=== PATIENT | male | born 1940 | race Hispanic/Latino ===

== ENCOUNTER 2018-02-14 13:19 | Inpatient (IN) | payer MEDICARE ==
[2018-02-13 14:50] LABS: BASOPHILS % 0.5 % (0.0-1.0); EOSINOPHILS # (AUTO) 0.2 (0.0-0.4); EOSINOPHILS % 3.2 % (0.0-6.0); HEMATOCRIT 34.2 % (38.2-49.6); HEMOGLOBIN 11.6 g/dL (14.0-18.0); LYMPHOCYTES # (AUTO) 1.3 (1.0-3.2); LYMPHOCYTES % 17.9 % (18.0-39.1); MEAN CORPUSCULAR HEMOGLOBIN 32.9 pg (28-32); MEAN CORPUSCULAR HGB CONC 33.9 g/dL (31-35); MEAN CORPUSCULAR VOLUME 96.9 fL (81-99); MONOCYTES # (AUTO) 0.7 (0.2-0.8); NEUTROPHILS # (AUTO) 5.1 (2.1-6.9); NEUTROPHILS % 68.7 % (38.7-80.0); PLATELET COUNT 194 x10e3/uL (140-360); RED BLOOD COUNT 3.53 x10e6/uL (4.3-5.7); RED CELL DISTRIBUTION WIDTH 13.5 % (11.7-14.4)
[2018-02-13 15:00] LABS: INR 1.21; PROTHROMBIN TIME 14.4 seconds (11.9-14.5)
[2018-02-13 15:01] LABS: PARTIAL THROMBOPLASTIN TIME 31.3 seconds (23.8-35.5)
--- NOTE | 2018-02-13 15:06 | Diagnostic Imaging Report ---
PROCEDURE: Frontal and lateral views of the chest. COMPARISON: None. INDICATIONS: PREOPERATIVE CHEST XRAY FOR PROSTATE SURGERY FINDINGS: Lines/tubes: None. Lungs: The lungs are well inflated and clear. There is no evidence of pneumonia or pulmonary edema. Pleura: There is no pleural effusion or pneumothorax. Heart and mediastinum: Mild aortic calcifications. The heart and the mediastinum are normal. Bones: No acute bony abnormality. IMPRESSION: No acute cardiopulmonary disease. Dictated by: Pineda Epps M.D. on 02/13/2018 at 15:11 Electronically approved by: Pineda Epps M.D. on 02/13/2018 at 15:11
[2018-02-13 15:11] LABS: ALANINE AMINOTRANSFERASE 13 IU/L (0-55); ALBUMIN 3.4 g/dL (3.5-5.0); ALBUMIN/GLOBULIN RATIO 0.9 (0.8-2.0); ALKALINE PHOSPHATASE 71 IU/L (40-150); ANION GAP 9.8 mmol/L (8-16); CALCIUM 8.8 mg/dL (8.4-10.2); CARBON DIOXIDE 26 mmol/L (22-29); CHLORIDE 104 mmol/L (98-107); CREATININE, SERUM 1.03 mg/dL (0.72-1.25); EST GLOMERULAR FILTRATION RATE > 60 ML/MIN (60-); GLUCOSE 110 mg/dL (74-118); POTASSIUM 3.8 mmol/L (3.5-5.1); SODIUM 136 mmol/L (136-145)
[2018-02-13 15:28] LABS: BLOOD UREA NITROGEN 24 mg/dL (7-26); BUN/CREATININE RATIO 23 (6-25)
[~2018-02-14] VITALS: Ht 175.3 cm; Wt 99.8 kg
[2018-02-14] MEDS: CEFTRIAXONE SOD 1 GM VIAL IV SCH (09:00)
[2018-02-14 13:03] LABS: BASOPHILS % 0.3 % (0.0-1.0); EOSINOPHILS # (AUTO) 0.1 (0.0-0.4); EOSINOPHILS % 1.5 % (0.0-6.0); HEMATOCRIT 33.5 % (38.2-49.6); HEMOGLOBIN 11.3 g/dL (14.0-18.0); LYMPHOCYTES # (AUTO) 0.7 (1.0-3.2); LYMPHOCYTES % 7.9 % (18.0-39.1); MEAN CORPUSCULAR HEMOGLOBIN 32.9 pg (28-32); MEAN CORPUSCULAR HGB CONC 33.7 g/dL (31-35); MEAN CORPUSCULAR VOLUME 97.7 fL (81-99); MONOCYTES # (AUTO) 0.2 (0.2-0.8); MONOCYTES % 2.5 % (4.4-11.3); NEUTROPHILS # (AUTO) 8.2 (2.1-6.9); NEUTROPHILS % 87.3 % (38.7-80.0); PLATELET COUNT 214 x10e3/uL (140-360); RED BLOOD COUNT 3.43 x10e6/uL (4.3-5.7); RED CELL DISTRIBUTION WIDTH 13.5 % (11.7-14.4)
[~2018-02-14 13:19] MED LIST: AMIODARONE HCL200 MG PO; AMLODIPINE BESY10 MG PO; AMOXICILLIN250 MG PO; ASPIRIN325 MG PO; BACTRIM DS1 EA; CEFTRIAXONE SOD 1 GM VIAL ONE; DIPHENHYDRAMINE HCL INJ 50 MG/ML VIAL IM PRN; DIPHENHYDRAMINE HCL INJ 50 MG/ML VIAL ONE; DITROPAN 5MG TAB5 MG PO; FENTANYL CITRATE/PF 100MCG/2 ML INJ ONE; FINASTERIDE5 MG PO; GENTAMICIN 80MG/NS 100 ML 200 ML IV ONE; HYDROCHLOROTH12.5 M1 PO; IOPAMIDOL 300MG/ML 50ML INFUS..BTL IV ONE; LISINOPRIL10 MG PO; LOSARTAN POTAS100 MG PO; LOSARTAN POTASS25 MG PO; METHYLENE BLUE 1% INJ 10 ML VIAL INJ ONE; METOPROLOL TAR100 MG PO; MORPHINE SULFATE 1 MG/ML 30ML PCA IV PRN; MORPHINE SULFATE 2 MG/ML SYR ONE; NALOXONE HCL INJ 0.4 MG/ML AMP IV PRN; NEXIUM40 MG PO; ONDANSETRON HCL INJ 2 MG/ML VIAL IV PRN; TAMSULOSIN HCL0.4 MG PO; TRAZODONE HCL50 MG PO; WARFARIN SODIUM1 MG; XARELTO20 MG PO; Z.0.IMDUR30 MG; Z.0.NORVASC10 MG; Z.0.VASOTEC10 MG PO
[2018-02-14 13:55] VITALS: BP 148/80
[2018-02-14 14:18] VITALS: BP 148/80
[2018-02-14] MEDS: D5.45%NS/KCL 20MEQ 1,000 ML IV SCH ×2 (14:22→21:09)
[2018-02-14] MEDS ORDERED: FENTANYL CITRATE/PF 100MCG/2 ML INJ ONE (14:44)
[2018-02-14] MEDS ORDERED: MIDAZOLAM HCL 2 MG/2 ML VIAL ONE (14:44)
[2018-02-14] MEDS: PHENAZOPYRIDINE HCL 100 MG TAB PO SCH (16:16)
[2018-02-14] MEDS: DOCUSATE SODIUM 100 MG CAP PO SCH (16:16)
[2018-02-14] MEDS ORDERED: DEXAMETHASONE SOD PHOS INJ 4 MG/ML VIAL ONE (16:49)
[2018-02-14] MEDS ORDERED: PROPOFOL IV EMULSION 10 MG/ML 20 ML VIAL ONE (16:49)
[2018-02-14] MEDS ORDERED: SEVOFLURANE INHAL SOLN 250 ML PEN BTL ONE (16:49)
[2018-02-14] MEDS ORDERED: LIDOCAINE HCL 2% LOCAL INJ 5 ML SDV VIAL INJ ONE (16:49)
[2018-02-14] MEDS ORDERED: ONDANSETRON HCL INJ 2 MG/ML VIAL ONE (16:49)
[2018-02-14 20:00] VITALS: BP 116/63
[2018-02-14 20:45] VITALS: BP 116/63
[2018-02-15] VITALS: BP 156/88
[2018-02-15] MEDS: ACETAMINOPHEN/CODEINE 300MG - 30MG TAB PO PRN ×2 (00:47→20:47)
[2018-02-15 04:00] VITALS: BP 146/73
[2018-02-15] MEDS: D5.45%NS/KCL 20MEQ 1,000 ML IV SCH ×2 (05:09→14:44)
[2018-02-15 05:55] LABS: BASOPHILS % 0.2 % (0.0-1.0); EOSINOPHILS % 0.3 % (0.0-6.0); HEMATOCRIT 28.8 % (38.2-49.6); HEMOGLOBIN 9.4 g/dL (14.0-18.0); LYMPHOCYTES # (AUTO) 0.9 (1.0-3.2); LYMPHOCYTES % 8.8 % (18.0-39.1); MEAN CORPUSCULAR HEMOGLOBIN 32.5 pg (28-32); MEAN CORPUSCULAR HGB CONC 32.6 g/dL (31-35); MEAN CORPUSCULAR VOLUME 99.7 fL (81-99); MONOCYTES # (AUTO) 0.9 (0.2-0.8); MONOCYTES % 8.5 % (4.4-11.3); NEUTROPHILS # (AUTO) 8.7 (2.1-6.9); NEUTROPHILS % 81.7 % (38.7-80.0); PLATELET COUNT 189 x10e3/uL (140-360); RED BLOOD COUNT 2.89 x10e6/uL (4.3-5.7); RED CELL DISTRIBUTION WIDTH 13.4 % (11.7-14.4)
[2018-02-15 06:20] LABS: ANION GAP 11.1 mmol/L (8-16); BLOOD UREA NITROGEN 13 mg/dL (7-26); BUN/CREATININE RATIO 16 (6-25); CALCIUM 7.9 mg/dL (8.4-10.2); CARBON DIOXIDE 24 mmol/L (22-29); CHLORIDE 106 mmol/L (98-107); EST GLOMERULAR FILTRATION RATE > 60 ML/MIN (60-); GLUCOSE 139 mg/dL (74-118); POTASSIUM 4.1 mmol/L (3.5-5.1); SODIUM 137 mmol/L (136-145)
[2018-02-15] MEDS: LOSARTAN POTASSIUM 100 MG TAB PO SCH (07:58)
[2018-02-15] MEDS: PANTOPRAZOLE SOD 40 MG TABEC PO SCH (07:58)
[2018-02-15] MEDS: AMLODIPINE BESYLATE 10 MG TAB PO SCH (07:58)
[2018-02-15] MEDS: FINASTERIDE 5 MG TAB PO SCH (07:58)
[2018-02-15] MEDS: DOCUSATE SODIUM 100 MG CAP PO SCH ×2 (07:59→18:25)
[2018-02-15] MEDS: PHENAZOPYRIDINE HCL 100 MG TAB PO SCH ×3 (07:59→18:25)
[2018-02-15] MEDS: AMIODARONE HCL 200 MG TAB PO SCH (07:59)
[2018-02-15] MEDS: CEFTRIAXONE SOD 1 GM VIAL IV SCH (07:59)
[2018-02-15] MEDS: LISINOPRIL 10 MG TAB PO SCH (07:59)
[2018-02-15 09:05] VITALS: BP 169/79
[2018-02-15 10:35] VITALS: BP 169/79
[2018-02-15 16:51] VITALS: BP 134/71
[2018-02-15] MEDS: CALCIUM CARBONATE 500 MG CHEWABLE TABS PO SCH (18:25)
[2018-02-15 20:00] VITALS: BP 127/75
[2018-02-16] VITALS (8 sets, daily range): BP systolic 129–171; BP diastolic 68–77
[2018-02-16] MEDS: ACETAMINOPHEN/CODEINE 300MG - 30MG TAB PO PRN ×4 (00:47→20:32)
[2018-02-16] MEDS: D5.45%NS/KCL 20MEQ 1,000 ML IV SCH ×3 (01:41→16:08)
[2018-02-16] MEDS: DIPHENHYDRAMINE HCL 25 MG CAP PO PRN (03:30)
[2018-02-16 04:48] LABS: BASOPHILS % 0.2 % (0.0-1.0); EOSINOPHILS # (AUTO) 0.1 (0.0-0.4); EOSINOPHILS % 1.5 % (0.0-6.0); LYMPHOCYTES # (AUTO) 1.2 (1.0-3.2); LYMPHOCYTES % 12.5 % (18.0-39.1); MEAN CORPUSCULAR HEMOGLOBIN 32.7 pg (28-32); MEAN CORPUSCULAR HGB CONC 33.3 g/dL (31-35); MEAN CORPUSCULAR VOLUME 98.2 fL (81-99); MONOCYTES % 10.6 % (4.4-11.3); NEUTROPHILS # (AUTO) 6.9 (2.1-6.9); NEUTROPHILS % 74.8 % (38.7-80.0); PLATELET COUNT 158 x10e3/uL (140-360); RED BLOOD COUNT 2.75 x10e6/uL (4.3-5.7); RED CELL DISTRIBUTION WIDTH 13.6 % (11.7-14.4)
[2018-02-16 05:06] LABS: ANION GAP 10.3 mmol/L (8-16); BLOOD UREA NITROGEN 9 mg/dL (7-26); BUN/CREATININE RATIO 12 (6-25); CALCIUM 8.2 mg/dL (8.4-10.2); CARBON DIOXIDE 27 mmol/L (22-29); CHLORIDE 106 mmol/L (98-107); CREATININE, SERUM 0.76 mg/dL (0.72-1.25); EST GLOMERULAR FILTRATION RATE > 60 ML/MIN (60-); GLUCOSE 121 mg/dL (74-118); POTASSIUM 4.3 mmol/L (3.5-5.1); SODIUM 139 mmol/L (136-145)
[2018-02-16] MEDS: PHENAZOPYRIDINE HCL 100 MG TAB PO SCH ×2 (08:27→12:25)
[2018-02-16] MEDS: AMLODIPINE BESYLATE 10 MG TAB PO SCH (08:27)
[2018-02-16] MEDS: DOCUSATE SODIUM 100 MG CAP PO SCH ×2 (08:27→16:56)
[2018-02-16] MEDS: LISINOPRIL 10 MG TAB PO SCH (08:27)
[2018-02-16] MEDS: FINASTERIDE 5 MG TAB PO SCH (08:27)
[2018-02-16] MEDS: PANTOPRAZOLE SOD 40 MG TABEC PO SCH (08:27)
[2018-02-16] MEDS: CEFTRIAXONE SOD 1 GM VIAL IV SCH (08:27)
[2018-02-16] MEDS: AMIODARONE HCL 200 MG TAB PO SCH (08:27)
[2018-02-16] MEDS: CALCIUM CARBONATE 500 MG CHEWABLE TABS PO SCH ×2 (08:28→16:56)
[2018-02-16] MEDS: LOSARTAN POTASSIUM 100 MG TAB PO SCH (08:28)
[2018-02-17] VITALS (8 sets, daily range): BP systolic 139–164; BP diastolic 73–84
[2018-02-17] MEDS: ACETAMINOPHEN/CODEINE 300MG - 30MG TAB PO PRN ×6 (03:30→22:28)
[2018-02-17 04:56] LABS: BASOPHILS % 0.3 % (0.0-1.0); EOSINOPHILS # (AUTO) 0.3 (0.0-0.4); EOSINOPHILS % 3.7 % (0.0-6.0); HEMATOCRIT 27.1 % (38.2-49.6); HEMOGLOBIN 8.8 g/dL (14.0-18.0); LYMPHOCYTES # (AUTO) 1.3 (1.0-3.2); LYMPHOCYTES % 16.9 % (18.0-39.1); MEAN CORPUSCULAR HEMOGLOBIN 32.5 pg (28-32); MEAN CORPUSCULAR HGB CONC 32.5 g/dL (31-35); MONOCYTES # (AUTO) 0.8 (0.2-0.8); MONOCYTES % 11.1 % (4.4-11.3); NEUTROPHILS # (AUTO) 5.1 (2.1-6.9); NEUTROPHILS % 67.2 % (38.7-80.0); PLATELET COUNT 181 x10e3/uL (140-360); RED BLOOD COUNT 2.71 x10e6/uL (4.3-5.7); RED CELL DISTRIBUTION WIDTH 13.5 % (11.7-14.4)
[2018-02-17] MEDS: D5.45%NS/KCL 20MEQ 1,000 ML IV SCH ×4 (05:09→21:13)
[2018-02-17 05:46] LABS: ANION GAP 11.5 mmol/L (8-16); BLOOD UREA NITROGEN 8 mg/dL (7-26); BUN/CREATININE RATIO 10 (6-25); CALCIUM 8.4 mg/dL (8.4-10.2); CARBON DIOXIDE 28 mmol/L (22-29); CHLORIDE 107 mmol/L (98-107); CREATININE, SERUM 0.81 mg/dL (0.72-1.25); EST GLOMERULAR FILTRATION RATE > 60 ML/MIN (60-); GLUCOSE 114 mg/dL (74-118); POTASSIUM 4.5 mmol/L (3.5-5.1); SODIUM 142 mmol/L (136-145)
[2018-02-17] MEDS: CALCIUM CARBONATE 500 MG CHEWABLE TABS PO SCH ×2 (08:00→17:00)
[2018-02-17] MEDS: LISINOPRIL 10 MG TAB PO SCH (09:00)
[2018-02-17] MEDS: DOCUSATE SODIUM 100 MG CAP PO SCH ×2 (09:00→17:00)
[2018-02-17] MEDS: LOSARTAN POTASSIUM 100 MG TAB PO SCH (09:00)
[2018-02-17] MEDS: CEFTRIAXONE SOD 1 GM VIAL IV SCH (09:00)
[2018-02-17] MEDS: AMLODIPINE BESYLATE 10 MG TAB PO SCH (09:00)
[2018-02-17] MEDS: FINASTERIDE 5 MG TAB PO SCH (09:00)
[2018-02-17] MEDS: AMIODARONE HCL 200 MG TAB PO SCH (09:00)
[2018-02-17] MEDS: PANTOPRAZOLE SOD 40 MG TABEC PO SCH (09:00)
[2018-02-17] MEDS: DIPHENHYDRAMINE HCL 25 MG CAP PO PRN (21:12)
[2018-02-18 04:00] VITALS: BP 156/78
[2018-02-18] MEDS: ACETAMINOPHEN/CODEINE 300MG - 30MG TAB PO PRN (04:33)
[2018-02-18] MEDS ORDERED: ZOLPIDEM TARTRATE 5 MG TAB PO PRN (05:15)
[2018-02-18 05:16] VITALS: BP 139/80
[2018-02-18 05:47] LABS: BASOPHILS % 0.4 % (0.0-1.0); EOSINOPHILS # (AUTO) 0.3 (0.0-0.4); EOSINOPHILS % 4.4 % (0.0-6.0); HEMATOCRIT 27.4 % (38.2-49.6); HEMOGLOBIN 8.8 g/dL (14.0-18.0); LYMPHOCYTES # (AUTO) 1.3 (1.0-3.2); LYMPHOCYTES % 16.7 % (18.0-39.1); MEAN CORPUSCULAR HGB CONC 32.1 g/dL (31-35); MEAN CORPUSCULAR VOLUME 99.6 fL (81-99); MONOCYTES # (AUTO) 0.8 (0.2-0.8); MONOCYTES % 10.9 % (4.4-11.3); NEUTROPHILS % 66.9 % (38.7-80.0); PLATELET COUNT 188 x10e3/uL (140-360); RED BLOOD COUNT 2.75 x10e6/uL (4.3-5.7); RED CELL DISTRIBUTION WIDTH 13.3 % (11.7-14.4)
[2018-02-18 06:11] LABS: ANION GAP 12.8 mmol/L (8-16); BLOOD UREA NITROGEN 9 mg/dL (7-26); BUN/CREATININE RATIO 11 (6-25); CALCIUM 8.7 mg/dL (8.4-10.2); CARBON DIOXIDE 26 mmol/L (22-29); CHLORIDE 105 mmol/L (98-107); CREATININE, SERUM 0.84 mg/dL (0.72-1.25); EST GLOMERULAR FILTRATION RATE > 60 ML/MIN (60-); GLUCOSE 116 mg/dL (74-118); POTASSIUM 4.8 mmol/L (3.5-5.1); SODIUM 139 mmol/L (136-145)
[2018-02-18] MEDS: D5.45%NS/KCL 20MEQ 1,000 ML IV SCH (06:26)
[2018-02-18] MEDS: HYDROCODONE/APAP 10MG-325MG TAB PO PRN ×2 (06:27→12:45)
[2018-02-18] MEDS: CALCIUM CARBONATE 500 MG CHEWABLE TABS PO SCH (08:00)
[2018-02-18 08:10] VITALS: BP 129/77
[2018-02-18] MEDS: FINASTERIDE 5 MG TAB PO SCH (09:00)
[2018-02-18] MEDS: AMIODARONE HCL 200 MG TAB PO SCH (09:00)
[2018-02-18] MEDS: DOCUSATE SODIUM 100 MG CAP PO SCH (09:00)
[2018-02-18] MEDS: PANTOPRAZOLE SOD 40 MG TABEC PO SCH (09:00)
[2018-02-18] MEDS: LOSARTAN POTASSIUM 100 MG TAB PO SCH (09:00)
[2018-02-18] MEDS: CEFTRIAXONE SOD 1 GM VIAL IV SCH (09:00)
[2018-02-18] MEDS: AMLODIPINE BESYLATE 10 MG TAB PO SCH (09:00)
[2018-02-18] MEDS: LISINOPRIL 10 MG TAB PO SCH (09:00)
[2018-02-18 12:24] VITALS: BP 139/79
[2018-02-18 16:38] VITALS: BP 122/66
--- NOTE | 2018-04-05 11:46 | Discharge Summary ---
DISCHARGE DIAGNOSES 1. Atrial fibrillation. 2. Hypertension. 3. BPH, status post transurethral resection of the prostate. HISTORY OF PRESENT ILLNESS AND HOSPITAL COURSE: See the hospital chart for full details. The patient is a gentleman who is status post TURP for BPH. He did well postoperatively. He had no unusual complications. He did have to have continuous bladder irrigation for a few days due to clots, but this did resolve by the time of discharge. At the time of discharge, he is to follow up with Dr. Nielsen in approximately 2 weeks. Please see hospital chart for full details. YOMAIRA GARCIA MD Job#: [id number]
--- NOTE | 2018-04-14 01:29 | Operative Report ---
DATE OF PROCEDURE: February 14, 2018 PREOPERATIVE DIAGNOSES: 1. Obstructive benign prostatic hypertrophy. 2. Hematuria. 3. Hydronephrosis. POSTOPERATIVE DIAGNOSES: 1. Obstructive benign prostatic hypertrophy. 2. Hematuria. 3. Hydronephrosis. OPERATIONS PERFORMED: 1. Cystourethroscopy with bilateral ureteral catheterization and retrograde ureteropyelography (separate procedure performed for the hematuria and hydronephrosis). 2. Interpretation of retrograde ureteropyelography. 3. Supervision of fluoroscopy, no radiologist present. 4. Cystourethroscopy with transurethral resection of the prostate (separate procedure performed for the obstructive benign prostatic hypertrophy). ANESTHESIA: General. COMPLICATIONS: None. CLINICAL SUMMARY: Stephen Pham Jr. is a 78-year-old man with the above preoperative diagnoses. He is brought for the above procedures. He is aware of the risks of bleeding, infection, injury to adjacent structures, incontinence, impotence, need for additional procedures, and elected to proceed. OPERATIVE PROCEDURE IN DETAIL: Informed consent was verified. Stephen Pham was properly identified, taken to the operating room and placed on the cystoscopy table in supine position. Anesthesia was uneventfully begun. The patient was then carefully and gently repositioned in a dorsal lithotomy position with all pressure points well padded. His genitalia were prepared and draped in usual sterile fashion. The 22.5-Finnish cystoscope sheath with the visual obturator in place was atraumatically inserted into the patient's urethra. It was guided down the unremarkable distal urethra, through the normal sphincteric region, into the patient's prostate bed. Patient's prostate bed exhibited severe bilobar prostatic hypertrophy with visual obstruction and kissing lateral lobes. Patient's prostate was very large and very long. Panendoscopy of the urinary bladder revealed heavy trabeculations with small diverticular formation. No suspicious lesions were identified. There were no stones. An 8-Finnish catheter was used to cannulate each ureter, and retrograde ureteral pyelograms were performed. Interpretation of retrograde ureteropyelography: Contrast was instilled in retrograde fashion bilaterally. There were no tumors, no stones, and no diverticula. Unobstructed drainage was observed bilaterally fluoroscopically. There was hydroureteronephrosis with tortuosity of the ureters more present on the left than on the right. The patient's ureteral orifices were displaced cephalad rather dramatically with the patient's massive prostate. The resectoscope was atraumatically placed. We then proceeded with utilizing the plasma band electrode to perform a transurethral resection of the prostate. We resected from the bladder neck to, but never past the verumontanum and down the surgical capsule. Pinpoint electrocautery was utilized to achieve hemostasis. We evacuated all the chips. This was verified endoscopically. Mai catheter was placed, and the patient was uneventfully reversed from anesthesia and taken to recovery room in stable condition. There were no complications to the procedure. He tolerated the procedure well. Plans will be to proceed with routine postoperative care and of course lifelong urological followup. Additional prostatic procedures may be warranted in the future. Job#: [id number]
--- OUTSIDE RECORDS SUMMARY | 2018-04-15 23:24 | XMS REPORT | CCD ---
Author Author [facility] Organization [facility] Address Unknown Phone Unavailable Care Team Providers Care Bookkeeping Assistant Name Role Phone Maria T Felipe RP Allergies, Adverse Reactions, Alerts Substance Reaction Status penicillins Active Problem List Condition Effective Dates Status Ablation Active HTN - Hypertension Active Medications Medication Instructions Start Date End Date Status hydrALAZINE 10 mg, 0.5 mL, Route: IV, Drug 08/15/2011 08/15/2011 Completed form: INJ, ONCE, Start date: 08/15/11 0:30:00, Stop date: 08/15/11 0:30:00 metoprolol 100 mg, 1 tab, Route: PO, Drug 08/13/2011 08/15/2011 Discontinued form: TAB, BID, Start date: 08/13/11 17:00:00, Duration: 30 day, Stop date: 09/12/11 9:00:00 finasteride 5 mg, 1 tab, Route: PO, Drug form: 08/14/2011 08/15/2011 Discontinued TAB, Daily, Start date: 08/14/11 9:00:00, Duration: 30 day, Stop date: 09/12/11 9:00:00 enalapril 40 mg, 2 tab, Route: PO, Drug form: 08/14/2011 08/15/2011 Discontinued TAB, Daily, Start date: 08/14/11 9:00:00, Duration: 30 day, Stop date: 09/12/11 9:00:00 enalapril 20 mg oral 40 mg, 2 tab, PO, Daily, 60 tab, 08/15/2011 Ordered tablet Substitution Allowed, TAB hydrALAZINE 10 mg, Route: IV, ONCE, Start date: 08/15/2011 08/15/2011 Deleted 08/15/11 9:58:00, Stop date: 08/15/11 9:58:00 potassium chloride 40 mEq, Route: PO, Drug form: 08/15/2011 08/15/2011 Deleted ERTAB, ONCE, Start date: 08/15/11 9:57:00, Duration: 1 doses or times, Stop date: 08/15/11 9:57:00, For K=3.5 - 3.9 mEq/L For K=3.5 - 3.9 mEq/L Saline Flush 0.9% 5 ml, Route: IVP, Drug Form: INJ, 08/13/20112011 Discontinued PRN, PRN Line Flush, Start date: 08/13/11 9:59:00, Duration: 30 day, Stop date: 09/12/11 9:58:00 Zofran 4 mg, 2 mL, Route: IVP, Drug form: 08/13/2011 08/15/2011 Discontinued INJ, Q8H, PRN Nausea, Start date: 08/13/11 9:59:00, Duration: 30 day, Stop date: 09/12/11 9:58:00 magnesium oxide 400 mg, 1 tab, Route: PO, Drug 08/13/2011 08/15/2011 Discontinued form: TAB, Daily, PRN Abnormal Lab Result, Start date: 08/13/11 9:59:00, Duration: 30 day, Stop date: 09/12/11 9:58:00 potassium chloride 20 mEq, 1 tab, Route: PO, Drug 08/13/2011 08/15/2011 Discontinued 20 mEq oral tablet, form: ERTAB, Daily, PRN Abnormal extended release Lab Result, Replacement for potassium less than 3.5, Start date: 08/13/11 9:59:00, Duration: 30 day, Stop date: 09/12/11 9:58:00 Saline Flush 0.9% 5 ml, Route: IVP, Drug Form: INJ, 08/13/20112011 Discontinued Q12H, Start date: 08/13/11 21:00:00, Duration: 30 day, Stop date: 09/12/11 9:00:00 Ambien 10 mg, Route: PO, Bedtime, PRN 08/13/2011 08/13/2011 Discontinued Insomnia, Start date: 08/13/11 9:59:00, Duration: 30 day, Stop date: 09/12/11 9:58:00 morphine Sulfate 2 mg, 1 mL, Route: IVP, Drug form: 08/13/20112011 Completed INJ, Q15Min, PRN Chest Pain, Start date: 08/13/11 9:59:00, Duration: 2 doses or times, Stop date: 08/13/11 18:00:00 acetaminophen-hydroc 1 tab, Route: PO, Drug Form: TAB, 08/13/20112011 Discontinued odone 325 mg-5 mg Q4H, PRN Pain Score 1-5, Start oral tablet date: 08/13/11 9:59:00, Duration: 30 day, Stop date: 09/12/11 9:58:00 finasteride 5 mg Substitution Allowed 08/13/2011 Ordered oral tablet tamsulosin 0.4 mg Substitution Allowed 08/13/2011 Ordered oral capsule Macrobid 100 mg, Route: PO, Drug form: CAP, 08/14/2011 08/14/2011 Discontinued [id number], Start date: 08/14/11 9:00:00, Duration: 5 day, Stop date: 08/18/11 21:00:00 warfarin 5 mg, 1 tab, Route: PO, Drug form: 08/13/2011 08/13/2011 Completed TAB, Q5PM, Start date: 08/13/11 17:00:00, Duration: 1 doses or times, Stop date: 08/13/11 17:00:00 oxybutynin 5 mg oral 5 mg, 1 tab, PO, TID, PRN, 30 tab, 08/13/2011 Ordered tablet Other-See Comments, Substitution Allowed, TAB enalapril 60 mg, Substitution Allowed 08/13/2011 08/15/2011 Discontinued metoprolol 100 mg 100 mg, PO, Substitution Allowed 08/13/20112011 Discontinued oral tablet Colace 50 mg oral 50 mg, 1 cap, Route: PO, Drug form: 08/14/20112011 Discontinued capsule CAP, Bedtime, Start date: 08/14/11 21:00:00, Duration: 30 day, Stop date: 09/12/11 21:00:00 Metoprolol Succinate 200 mg, 1 tab, PO, BID, 60 tab, 2, 08/15/2011 Ordered ER 200 mg oral 2, Substitution Allowed tablet, extended release Protonix 40 mg, 1 tab, Route: PO, Drug form: 08/13/2011 08/15/2011 Discontinued ECTAB, Before Dinner, Start date: 08/13/11 16:30:00, Duration: 30 day, Stop date: 09/11/11 16:30:00 warfarin 2 mg oral 2 mg, 1 tab, PO, Daily, 30 tab, 2, 08/15/2011 Ordered tablet 2, Substitution Allowed Restoril 30 mg, 2 cap, Route: PO, Drug form: 08/13/2011 08/15/2011 Discontinued CAP, Bedtime, PRN Sleep, Start date: 08/13/11 10:38:00, Duration: 30 day, Stop date: 09/12/11 10:37:00 Norvasc 5 mg oral 5 mg, 1 tab, PO, Daily, 30 tab, 2, 08/15/2011 Ordered tablet 2, Substitution Allowed, TAB Macrodantin 100 mg, 1 cap, Route: PO, Drug 08/14/2011 08/15/2011 Discontinued form: CAP, Q6H-02, Start date: 08/14/11 9:00:00, Duration: 5 day, Stop date: 08/19/11 3:00:00 K-Dur 20 40 mEq, 2 tab, Route: PO, Drug 08/15/2011 08/15/2011 Completed form: ERTAB, ONCE, Start date: 08/15/11 10:30:00, Stop date: 08/15/11 10:30:00 metoprolol 100 mg, 1 tab, Route: PO, Drug 08/15/2011 08/15/2011 Completed form: ERTAB, ONCE, Start date: 08/15/11 10:30:00, Stop date: 08/15/11 10:30:00 hydrALAZINE 20 mg, 1 mL, Route: IV, Drug form: 08/15/2011 08/15/2011 Completed INJ, ONCE, Start date: 08/15/11 12:40:00, Stop date: 08/15/11 12:40:00 ibuprofen 200 mg 400 mg, 1 tab, Route: PO, Drug 08/14/2011 08/15/2011 Discontinued oral tablet form: TAB, Q4H, PRN Pain, Start date: 08/14/11 9:43:00, Duration: 30 day, Stop date: 09/13/11 9:42:00 Lasix 40 mg oral 40 mg, 1 tab, Route: PO, Drug form: 08/14/20112011 Discontinued tablet TAB, Daily, Start date: 08/14/11 10:00:00, Duration: 30 day, Stop date: 09/13/11 9:00:00 hydrALAZINE 10 mg, 0.5 mL, Route: IV, Drug 08/15/2011 08/15/2011 Completed form: INJ, ONCE, Start date: 08/15/11 10:30:00, Stop date: 08/15/11 10:30:00 ciprofloxacin 500 mg, 1 tab, Route: PO, Drug 08/14/2011 08/14/2011 Canceled form: TAB, Q12H, Start date: 08/14/11 9:00:00, Duration: 5 day, Stop date: 08/18/11 21:00:00 warfarin 5 mg, 1 tab, Route: PO, Drug form: 08/14/2011 08/14/2011 Completed TAB, Q5PM, Start date: 08/14/11 17:00:00, Duration: 1 doses or times, Stop date: 08/14/11 17:00:00 Macrobid 100 mg oral 1 cap, PO, BID, 8 cap, Substitution 08/15/2011 Ordered capsule Allowed Metoprolol Succinate 1 tab, Route: PO, ONCE, Start date: 08/15/201108/2011 Deleted ER 100 mg oral 08/15/11 9:59:00, Stop date: tablet, extended 08/15/11 9:59:00 release AMIODarone 200 mg, 1 tab, Route: PO, Drug 08/13/2011 08/15/2011 Discontinued form: TAB, BID, Start date: 08/13/11 17:00:00, Duration: 30 day, Stop date: 09/12/11 9:00:00 Protonix 40 mg oral 40 mg, 1 tab, PO, Before Dinner, 30 08/15/2011 Ordered enteric coated tab, Substitution Allowed, ECTAB tablet Carafate 1 gm, 1 tab, Route: PO, Drug form: 08/13/2011 08/15/2011 Discontinued TAB, QID, Start date: 08/13/11 13:00:00, Duration: 7 day, Stop date: 08/20/11 9:00:00 Carafate 1 g oral 1 gm, 1 tab, PO, QID, 28 tab, 08/15/2011 Ordered tablet Substitution Allowed, TAB Saline Flush 0.9% 5 ml, Route: IVP, Drug Form: INJ, 08/13/20112011 Discontinued PRN, PRN Line Flush, Start date: 08/13/11 6:43:00, Duration: 30 day, Stop date: 09/12/11 6:42:00 Saline Flush 0.9% 5 ml, Route: IVP, Drug Form: INJ, 08/13/20112011 Discontinued Q12H, Start date: 08/13/11 9:00:00, Duration: 30 day, Stop date: 09/11/11 21:00:00 acetaminophen-hydroc 1 tab, PO, Q4H, PRN, 40 tab, Pain 08/15/2011 Ordered odone 325 mg-5 mg Score 1-5, Substitution Allowed, oral tablet Maintenance, TAB AMIODarone 200 mg 200 mg, 1 tab, PO, BID, 60 tab, 2, 08/15/2011 Ordered oral tablet 2, Substitution Allowed, TAB Vital Signs Most recent to oldest [Reference Range]: 1 2 3 Height 165.10 cm (08/13/2011 06:43:00) 175.26 cm (08/13/2011 05:50:00) Temperature Oral [96.4-99.1 DegF] 98.0 DegF (08/15/2011 13:35:00) 98.0 DegF (08/15/2011 11:41:00) 97.0 DegF (08/15/2011 08:54:00) Systolic Blood Pressure [90-140 mmHg] 134 mmHg (08/15/2011 13:35:00) 170 mmHg *HI* (08/15/2011 12:25:00) 149 mmHg *HI* (08/15/2011 11:41:00) Diastolic Blood Pressure [60-90 mmHg] 80 mmHg (08/15/2011 13:35:00) 94 mmHg *HI* (08/15/2011 12:25:00) 94 mmHg *HI* (08/15/2011 11:41:00) Respiratory Rate [14-20 BRMIN] 18 BRMIN (08/15/2011 13:35:00) 18 BRMIN (08/15/2011 12:25:00) 18 BRMIN (08/15/2011 11:41:00) Peripheral Pulse Rate [60-100 bpm] 74 bpm (08/15/2011 13:35:00) 72 bpm (08/15/2011 12:25:00) 72 bpm (08/15/2011 09:45:00) Weight 93.182 kg (08/13/2011 06:43:00) 93.182 kg (08/13/2011 05:50:00) Results URINALYSIS Most recent to oldest [Reference Range]: 1 2 3 UA Turbidity [Clear] Clear (08/13/2011 06:48:00) UA Color [Yellow] Yellow *NA* (08/13/2011 06:48:00) UA pH [5.0-8.0] 7.0 (08/13/2011 06:48:00) UA Spec Grav [<=1.030] 1.014 (08/13/2011 06:48:00) UA Glucose [Negative mg/dL] Negative mg/dL *NA* (08/13/2011 06:48:00) UA Blood [Negative] Negative (08/13/2011 06:48:00) UA Ketones [Negative mg/dL] Negative mg/dL *NA* (08/13/2011 06:48:00) UA Protein [Negative mg/dL] 30 mg/dL *ABN* (08/13/2011 06:48:00) UA Urobilinogen [0.1-1.0 mg/dL] <=1.0 mg/dL *NA* (08/13/2011 06:48:00) UA Bili [Negative] Negative *NA* (08/13/2011 06:48:00) UA Leuk Est [Negative] Moderate *ABN* (08/13/2011 06:48:00) UA Nitrite [Negative] Negative (08/13/2011 06:48:00) UA WBC [0-5 /HPF] 31 /HPF *HI* (08/13/2011 06:48:00) UA RBC [0-2 /HPF] 3 /HPF *HI* (08/13/2011 06:48:00) UA Sq Epi None Seen *NA* (08/13/2011 06:48:00) UA Mucus [None Seen /LPF] Few /LPF *NA* (08/13/2011 06:48:00) BLOOD BANK RESULTS Most recent to oldest [Reference Range]: 1 2 3 ABO/Rh A POS *Unknown* (08/13/2011 06:15:00) Antibody Scrn Negative (08/13/2011 06:15:00) CHEMISTRY Most recent to oldest [Reference Range]: 1 2 3 Sodium Lvl [135-145 mEq/L] 143 mEq/L (08/15/2011 06:22:00) 142 mEq/L (08/14/2011 04:12:00) 142 mEq/L (08/13/2011 06:48:00) Potassium Lvl [3.5-5.1 mEq/L] 3.6 mEq/L (08/15/2011 06:22:00) 4.0 mEq/L (08/14/2011 04:12:00) 3.5 mEq/L (08/13/2011 06:48:00) Chloride Lvl [95-109 mEq/L] 109 mEq/L (08/15/2011 06:22:00) 106 mEq/L (08/14/2011 04:12:00) 105 mEq/L (08/13/2011 06:48:00) CO2 [24-32 mEq/L] 22 mEq/L *LOW* (08/15/2011 06:22:00) 25 mEq/L (08/14/2011 04:12:00) 27 mEq/L (08/13/2011 06:48:00) AGAP [10.0-20.0 mEq/L] 15.6 mEq/L (08/15/2011 06:22:00) 15.0 mEq/L (08/14/2011 04:12:00) 13.5 mEq/L (08/13/2011 06:48:00) Creatinine Lvl [0.5-1.4 mg/dL] 0.8 mg/dL (08/15/2011 06:22:00) 0.9 mg/dL (08/14/2011 04:12:00) 0.9 mg/dL (08/13/2011 06:48:00) BUN [7-22 mg/dL] 25 mg/dL *HI* (08/15/2011 06:22:00) 26 mg/dL *HI* (08/14/2011 04:12:00) 17 mg/dL (08/13/2011 06:48:00) Glucose Lvl 105 mg/dL 1 *NA* (08/15/2011 06:22:00) 137 mg/dL 2 *NA* (08/14/2011 04:12:00) 105 mg/dL 3 *NA* (08/13/2011 06:48:00) Calcium Lvl [8.5-10.5 mg/dL] 7.6 mg/dL *LOW* (08/15/2011 06:22:00) 7.3 mg/dL *LOW* (08/14/2011 04:12:00) 7.9 mg/dL *LOW* (08/13/2011 06:48:00) Magnesium Lvl [1.8-2.4 mg/dL] 1.9 mg/dL (08/15/2011 06:22:00) 1.6 mg/dL *LOW* (08/14/2011 04:12:00) 1Interpretive Data: Reference Ranges : 0 - 7 days : 41 - 90 mg/dL7 days - 150 yrs : 70 - 99 mg/dL (fasting), based on the clinical recommendations of the [place] [employer]. 2Interpretive Data: Reference Ranges : 0 - 7 days : 41 - 90 mg/dL7 days - 150 yrs : 70 - 99 mg/dL (fasting), based on the clinical recommendations of the [place] [employer]. 3Interpretive Data: Reference Ranges : 0 - 7 days : 41 - 90 mg/dL7 days - 150 yrs : 70 - 99 mg/dL (fasting), based on the clinical recommendations of the [place] [employer]. HEMATOLOGY Most recent to oldest [Reference Range]: 1 2 3 WBC [3.7-10.4 K/CMM] 8.5 K/CMM (08/15/2011 06:22:00) 10.0 K/CMM (08/14/2011 04:12:00) 5.1 K/CMM (08/13/2011 06:48:00) RBC [4.70-6.10 M/CMM] 3.63 M/CMM *LOW* (08/15/2011 06:22:00) 3.63 M/CMM *LOW* (08/14/2011 04:12:00) 4.31 M/CMM *LOW* (08/13/2011 06:48:00) Hgb [14.0-18.0 g/dL] 11.9 g/dL *LOW* (08/15/2011 06:22:00) 12.0 g/dL *LOW* (08/14/2011 04:12:00) 13.9 g/dL *LOW* (08/13/2011 06:48:00) Hct [42.0-54.0 %] 34.9 % *LOW* (08/15/2011 06:22:00) 34.4 % *LOW* (08/14/2011 04:12:00) 41.1 % *LOW* (08/13/2011 06:48:00) MCV [80.0-94.0 fL] 96.2 fL *HI* (08/15/2011 06:22:00) 94.7 fL *HI* (08/14/2011 04:12:00) 95.3 fL *HI* (08/13/2011 06:48:00) MCH [27.0-31.0 pg] 32.7 pg *HI* (08/15/2011 06:22:00) 33.1 pg *HI* (08/14/2011 04:12:00) 32.2 pg *HI* (08/13/2011 06:48:00) MCHC [32.0-36.0 g/dL] 34.0 g/dL (08/15/2011 06:22:00) 34.9 g/dL (08/14/2011 04:12:00) 33.8 g/dL (08/13/2011 06:48:00) RDW [11.5-14.5 %] 15.3 % *HI* (08/15/2011 06:22:00) 15.0 % *HI* (08/14/2011 04:12:00) 14.7 % *HI* (08/13/2011 06:48:00) Platelet [133-450 K/CMM] 119 K/CMM *LOW* (08/15/2011 06:22:00) 146 K/CMM (08/14/2011 04:12:00) 131 K/CMM *LOW* (08/13/2011 06:48:00) MPV [7.4-10.4 fL] 7.8 fL (08/15/2011 06:22:00) 7.4 fL (08/14/2011 04:12:00) 7.7 fL (08/13/2011 06:48:00) Segs [45.0-75.0 %] 75.8 % *HI* (08/15/2011 06:22:00) 76.9 % *HI* (08/14/2011 04:12:00) 59.4 % (08/13/2011 06:48:00) Lymphocytes [20.0-40.0 %] 11.9 % *LOW* (08/15/2011 06:22:00) 11.0 % *LOW* (08/14/2011 04:12:00) 25.9 % (08/13/2011 06:48:00) Monocytes [2.0-12.0 %] 11.6 % (08/15/2011 06:22:00) 11.8 % (08/14/2011 04:12:00) 11.4 % (08/13/2011 06:48:00) Eosinophils [0.0-4.0 %] 0.5 % (08/15/2011 06:22:00) 0.0 % (08/14/2011 04:12:00) 2.9 % (08/13/2011 06:48:00) Basophils [0.0-1.0 %] 0.2 % (08/15/2011 06:22:00) 0.3 % (08/14/2011 04:12:00) 0.4 % (08/13/2011 06:48:00) Segs-Bands # [1.5-8.1 K/CMM] 6.4 K/CMM (08/15/2011 06:22:00) 7.7 K/CMM (08/14/2011 04:12:00) 3.0 K/CMM (08/13/2011 06:48:00) Lymphocytes # [1.0-5.5 K/CMM] 1.0 K/CMM (08/15/2011 06:22:00) 1.1 K/CMM (08/14/2011 04:12:00) 1.3 K/CMM (08/13/2011 06:48:00) Monocytes # [0.0-0.8 K/CMM] 1.0 K/CMM *HI* (08/15/2011 06:22:00) 1.2 K/CMM *HI* (08/14/2011 04:12:00) 0.6 K/CMM (08/13/2011 06:48:00) Eosinophils # [0.0-0.5 K/CMM] 0.0 K/CMM (08/15/2011 06:22:00) 0.0 K/CMM (08/14/2011 04:12:00) 0.1 K/CMM (08/13/2011 06:48:00) Basophils # [0.0-0.2 K/CMM] 0.0 K/CMM (08/15/2011 06:22:00) 0.0 K/CMM (08/14/2011 04:12:00) 0.0 K/CMM (08/13/2011 06:48:00) PT [12.0-14.7 seconds] 18.1 seconds *HI* (08/15/2011 06:22:00) 17.7 seconds *HI* (08/14/2011 04:12:00) 16.9 seconds *HI* (08/13/2011 06:48:00) INR [0.85-1.17] 1.51 4 *HI* (08/15/2011 06:22:00) 1.46 5 *HI* (08/14/2011 04:12:00) 1.38 6 *HI* (08/13/2011 06:48:00) PTT [22.9-35.8 seconds] 33.2 seconds 7 (08/13/2011 06:48:00) 4Interpretive Data: RECOMMENDED RANGES FOR PROTIME INR: 2.0-3.0 for most medical and surgical thromboembolic states. 2.5-3.5 for artificial heart valves and recurrent embolism.INR SHOULD BE USED ONLY FOR PATIENTS ON STABLE ANTICOAGULANT THERAPY. 5Interpretive Data: RECOMMENDED RANGES FOR PROTIME INR: 2.0-3.0 for most medical and surgical thromboembolic states. 2.5-3.5 for artificial heart valves and recurrent embolism.INR SHOULD BE USED ONLY FOR PATIENTS ON STABLE ANTICOAGULANT THERAPY. 6Interpretive Data: RECOMMENDED RANGES FOR PROTIME INR: 2.0-3.0 for most medical and surgical thromboembolic states. 2.5-3.5 for artificial heart valves and recurrent embolism.INR SHOULD BE USED ONLY FOR PATIENTS ON STABLE ANTICOAGULANT THERAPY. 7Interpretive Data: Heparin Therapeutic Range: 57 - 92 Seconds
--- OUTSIDE RECORDS SUMMARY | 2018-04-15 23:24 | XMS REPORT ---
Author Author [facility] Address Unknown Phone Unavailable Care Team Providers Care Tobacco Grower Name Role Phone EULALIO MARROQUIN Unavailable Unavailable Problems This patient has no known problems. Allergies, Adverse Reactions, Alerts This patient has no known allergies or adverse reactions. Medications This patient has no known medications. Results Test Description Test Time Test Comments Text Results Atomic Results Result Comments CHEST 2 VIEWS 2018-02-13 15:11:00 [facility] [address] [address] Patient Name: DANN DAVIS JR MR #: [id number] : 1940 Age/Sex: 78/M Req #: [id number] Adm Physician: Ordered by: ISAI STROUD MD Report #: [id number] Location: OR Room/Bed: Procedure: [id number] DX/CHEST 2 VIEWS Exam Date: 02/13/18 Exam Time: 1420 REPORT STATUS: Signed PROCEDURE: Frontal and lateral views of the chest. COMPARISON: None. INDICATIONS: PREOPERATIVE CHEST XRAY FOR PROSTATE SURGERY FINDINGS: Lines/tubes: None. Lungs: The lungs are well inflated and clear. There is no evidence of pneumonia or pulmonary edema. Pleura: There is no pleural effusion or pneumothorax. Heart and mediastinum: Mild aortic calcifications. The heart and the mediastinum are normal. Bones: No acute bony abnormality. IMPRESSION: No acute cardiopulmonary disease. Dictated by: Pineda Spain M.D. on 02/13/2018 at 15:11 Electronically approved by: Pineda Spain M.D. on 02/13/2018 at 15:11 Dictated By: PINEDA SAPIN MD [id number] Transcribed By: BRY on 02/13/18 1511 COPY TO: ISAI STROUD MD
== END 2018-02-18 16:49 | disposition home or self-care (01) | DRG 713 ==
LOC: OR 13:19 → MED/SURG 13:20
PROVIDERS: ADMIT Internal Medicine; ATTEND Internal Medicine
PROC: 0T5C8ZZ Destruction of Bladder Neck, Via Natural or Artificial Opening Endoscopic (ICD-10-PCS; 2018-02-14)
PROC: 0T788ZZ Dilation of Bilateral Ureters, Via Natural or Artificial Opening Endoscopic (ICD-10-PCS; 2018-02-14)
PROC: BT141ZZ Fluoroscopy of Kidneys, Ureters and Bladder using Low Osmolar Contrast (ICD-10-PCS; 2018-02-14)
PROC: 0V508ZZ Destruction of Prostate, Via Natural or Artificial Opening Endoscopic (ICD-10-PCS; principal; 2018-02-14 09:00)
DX: N40.1 Benign prostatic hyperplasia with lower urinary tract symptoms (principal); N13.8 Other obstructive and reflux uropathy; N13.1 Hydronephrosis with ureteral stricture, not elsewhere classified; I48.91 Unspecified atrial fibrillation; Z79.01 Long term (current) use of anticoagulants; I10 Essential (primary) hypertension; F32.9 Major depressive disorder, single episode, unspecified; F41.9 Anxiety disorder, unspecified; D64.9 Anemia, unspecified; R31.9 Hematuria, unspecified; R33.8 Other retention of urine; G47.00 Insomnia, unspecified
CPT/HCPCS: 36415; 71046; 74420; 80048; 80053; 83735; 85025; 85610; 85730; 88305; 88342; 93005; J0696; J1100; J1200; J1580; J2001; J2250; J2270; J2405

== ENCOUNTER 2019-01-08 10:47 | Emergency (ER) | payer MEDICARE, OTHER ==
[~2019-01-08] VITALS: Ht 175.3 cm; Wt 99.8 kg
[~2019-01-08 10:47] MED LIST changes: -CEFTRIAXONE SOD 1 GM VIAL ONE; -DIPHENHYDRAMINE HCL INJ 50 MG/ML VIAL IM PRN; -DIPHENHYDRAMINE HCL INJ 50 MG/ML VIAL ONE; -FENTANYL CITRATE/PF 100MCG/2 ML INJ ONE; -GENTAMICIN 80MG/NS 100 ML 200 ML IV ONE; -IOPAMIDOL 300MG/ML 50ML INFUS..BTL IV ONE; -METHYLENE BLUE 1% INJ 10 ML VIAL INJ ONE; -MORPHINE SULFATE 1 MG/ML 30ML PCA IV PRN; -MORPHINE SULFATE 2 MG/ML SYR ONE; -NALOXONE HCL INJ 0.4 MG/ML AMP IV PRN; -ONDANSETRON HCL INJ 2 MG/ML VIAL IV PRN
--- OUTSIDE RECORDS SUMMARY | 2019-01-08 10:52 | XMS REPORT | Continuity of Care Document ---
Author Author [employer] Organization [employer] Address Unknown Phone Unavailable Care Team Providers Care Jewelry Manager Name Role Phone [facility] [employer] Unavailable Unavailable Problems Problem Status Onset Date Classification Date Reported Comments Source CCL/ AFIB/ EPS PVI ABLATION/ *MARIANA*/ *TRANSEPTAL ICE*/ G Active 07/23/2011 [facility] CCL/ AFIB/ EPS PVI ABLATION/ *MARIANA*/ *TRANSEPTAL ICE*/ . Active 07/23/2011 [facility] Ablation Active Problem 08/17/2011 [facility] HTN - Hypertension Active Problem 08/17/2011 [facility] Medications Medication Details Route Status Patient Instructions Ordering Provider Order Date Source Norvasc 5 mg oral tablet 5 mg, 1 tab, PO, Daily, 30 tab, 2, 2, Substitution Allowed, TAB [facility] hydrALAZINE 20 mg, 1 mL, Route: IV, Drug form: INJ, ONCE, Start date: 08/15/11 12:40:00, Stop date: 08/15/11 12:40:00 IV No Longer Active [facility] 08/15/2011 [facility] K-Dur 20 40 mEq, 2 tab, Route: PO, Drug form: ERTAB, ONCE, Start date: 08/15/11 10:30:00, Stop date: 08/15/11 10:30:00 PO No Longer Active [facility] 08/15/2011 [facility] metoprolol 100 mg, 1 tab, Route: PO, Drug form: ERTAB, ONCE, Start date: 08/15/11 10:30:00, Stop date: 08/15/11 10:30:00 PO No Longer Active [facility] 08/15/2011 [facility] hydrALAZINE 10 mg, 0.5 mL, Route: IV, Drug form: INJ, ONCE, Start date: 08/15/11 10:30:00, Stop date: 08/15/11 10:30:00 IV No Longer Active [facility] 08/15/2011 [facility] warfarin 2 mg oral tablet 2 mg, 1 tab, PO, Daily, 30 tab, 2, 2, Substitution Allowed PO Active [facility] 08/15/2011 [facility] Metoprolol Succinate ER 100 mg oral tablet, extended release 1 tab, Route: PO, ONCE, Start date: 08/15/11 9:59:00, Stop date: 08/15/11 9:59:00 PO No Longer Active [facility] 08/15/2011 [facility] hydrALAZINE 10 mg, Route: IV, ONCE, Start date: 08/15/11 9:58:00, Stop date: 08/15/11 9:58:00 [facility] potassium chloride 40 mEq, Route: PO, Drug form: ERTAB, ONCE, Start date: 08/15/11 9:57:00, Duration: 1 doses or times, Stop date: 08/15/11 9:57:00, For K=3.5 - 3.9 mEq/LFor K=3.5 - 3.9 mEq/L PO No Longer [facility] 08[facility]2011 [facility] Metoprolol Succinate ER 200 mg oral tablet, extended release 200 mg, 1 tab, PO, BID, 60 tab, 2, 2, Substitution Allowed PO Active [facility] 08/15/2011 [facility] Macrobid 100 mg oral capsule 1 cap, PO, BID, 8 cap, Substitution Allowed PO [facility] 08[facility]2011 [facility] Protonix 40 mg oral enteric coated tablet 40 mg, 1 tab, PO, Before Dinner, 30 tab, Substitution Allowed, ECTAB [facility] Carafate 1 g oral tablet 1 gm, 1 tab, PO, QID, 28 tab, Substitution Allowed, TAB PO Active [facility] 08/15/2011 [facility] acetaminophen-hydrocodone 325 mg-5 mg oral tablet 1 tab, PO, Q4H, PRN, 40 tab, Pain Score 1-5, Substitution Allowed, Maintenance, TAB PO [facility] AMIODarone 200 mg oral tablet 200 mg, 1 tab, PO, BID, 60 tab, 2, 2, Substitution Allowed, TAB [facility] enalapril 20 mg oral tablet 40 mg, 2 tab, PO, Daily, 60 tab, Substitution Allowed, TAB PO Active [facility] 08/15/2011 [facility] hydrALAZINE 10 mg, 0.5 mL, Route: IV, Drug form: INJ, ONCE, Start date: 08/15/11 0:30:00, Stop date: 08/15/11 0:30:00 IV No Longer Active [facility] 08/15/2011 [facility] Colace 50 mg oral capsule 50 mg, 1 cap, Route: PO, Drug form: CAP, Bedtime, Start date: 08/14/11 21:00:00, Duration: 30 day, Stop date: 09/12/11 21:00:00 PO No Longer [facility] 08[facility]2011 [facility] warfarin 5 mg, 1 tab, Route: PO, Drug form: TAB, Q5PM, Start date: 08/14/11 17:00:00, Duration: 1 doses or times, Stop date: 08/14/11 17:00:00 PO No Longer [facility] 08[facility]14[facility]2011 [facility] Lasix 40 mg oral tablet 40 mg, 1 tab, Route: PO, Drug form: TAB, Daily, Start date: 08/14/11 10:00:00, Duration: 30 day, Stop date: 09/13/11 9:00:00 PO No Longer [facility] 08/14[facility]2011 [facility] ibuprofen 200 mg oral tablet 400 mg, 1 tab, Route: PO, Drug form: TAB, Q4H, PRN Pain, Start date: 08/14/11 9:43:00, Duration: 30 day, Stop date: 09/13/11 9:42:00 PO No Longer [facility] 08[facility]14[facility]2011 [facility] finasteride 5 mg, 1 tab, Route: PO, Drug form: TAB, Daily, Start date: 08/14/11 9:00:00, Duration: 30 day, Stop date: 09/12/11 9:00:00 PO No Longer [facility] 08/14/2011 [facility] enalapril 40 mg, 2 tab, Route: PO, Drug form: TAB, Daily, Start date: 08/14/11 9:00:00, Duration: 30 day, Stop date: 09/12/11 9:00:00 PO No Longer Active [facility] 08/14/2011 [facility] Macrobid 100 mg, Route: PO, Drug form: CAP, [id number], Start date: 08/14/11 9:00:00, Duration: 5 day, Stop date: 08/18/11 21:00:00 PO No Longer Active [facility] 08/14/2011 [facility] Macrodantin 100 mg, 1 cap, Route: PO, Drug form: CAP, Q6H- 02, Start date: 08/14/11 9:00:00, Duration: 5 day, Stop date: 08/19/11 3:00:00 PO No Longer Active [facility] 08/14/2011 [facility] ciprofloxacin 500 mg, 1 tab, Route: PO, Drug form: TAB, Q12H, Start date: 08/14/11 9:00:00, Duration: 5 day, Stop date: 08/18/11 21:00:00 PO No Longer Active [facility] 08/14/2011 [facility] Saline Flush 0.9% 5 ml, Route: IVP, Drug Form: INJ, Q12H, Start date: 08/13/11 21:00:00, Duration: 30 day, Stop date: 09/12/11 9:00:00 IVP No Longer Active [facility] 08/14/2011 [facility] metoprolol 100 mg, 1 tab, Route: PO, Drug form: TAB, BID, Start date: 08/13/11 17:00:00, Duration: 30 day, Stop date: 09/12/11 9:00:00 PO No Longer Active [facility] 08/13/2011 [facility] warfarin 5 mg, 1 tab, Route: PO, Drug form: TAB, Q5PM, Start date: 08/13/11 17:00:00, Duration: 1 doses or times, Stop date: 08/13/11 17:00:00 PO No Longer Active [facility] 08/13/2011 [facility] AMIODarone 200 mg, 1 tab, Route: PO, Drug form: TAB, BID, Start date: 08/13/11 17:00:00, Duration: 30 day, Stop date: 09/12/11 9:00:00 PO No Longer Active [facility] 08/13/2011 [facility] Protonix 40 mg, 1 tab, Route: PO, Drug form: ECTAB, Before Dinner, Start date: 08/13/11 16:30:00, Duration: 30 day, Stop date: 09/11/11 16:30:00 PO No Longer Active [facility] 08/13/2011 [facility] Carafate 1 gm, 1 tab, Route: PO, Drug form: TAB, QID, Start date: 08/13/11 13:00:00, Duration: 7 day, Stop date: 08/20/11 9:00:00 PO No Longer Active [facility] 08/13/2011 [facility] Restoril 30 mg, 2 cap, Route: PO, Drug form: CAP, Bedtime, PRN Sleep, Start date: 08/13/11 10:38:00, Duration: 30 day, Stop date: 09/12/11 10:37:00 PO No Longer Active [facility] 08/13/2011 [facility] Saline Flush 0.9% 5 ml, Route: IVP, Drug Form: INJ, PRN, PRN Line Flush, Start date: 08/13/11 9:59:00, Duration: 30 day, Stop date: 09/12/11 9:58:00 IVP No Longer [facility] 08[facility]2011 [facility] Zofran 4 mg, 2 mL, Route: IVP, Drug form: INJ, Q8H, PRN Nausea, Start date: 08/13/11 9:59:00, Duration: 30 day, Stop date: 09/12/11 9:58:00 IVP No Longer [facility] 08/13/2011 [facility] magnesium oxide 400 mg, 1 tab, Route: PO, Drug form: TAB, Daily, PRN Abnormal Lab Result, Start date: 08/13/11 9:59:00, Duration: 30 day, Stop date: 09/12/11 9:58:00 PO No Longer Active [facility] 08/13/2011 [facility] potassium chloride 20 mEq oral tablet, extended release 20 mEq, 1 tab, Route: PO, Drug form: ERTAB, Daily, PRN Abnormal Lab Result, Replacement for potassium less than 3.5, Start date: 08/13/11 9:59:00, Duration: 30 day, Stop date: 09/12/11 9:58:00 PO No Longer [facility] 08/13/2011 [facility] Ambien 10 mg, Route: PO, Bedtime, PRN Insomnia, Start date: 08/13/11 9:59:00, Duration: 30 day, Stop date: 09/12/11 9:58:00 PO No Longer [facility] 08/13/2011 [facility] morphine Sulfate 2 mg, 1 mL, Route: IVP, Drug form: INJ, Q15Min, PRN Chest Pain, Start date: 08/13/11 9:59:00, Duration: 2 doses or times, Stop date: 08/13/11 18:00:00 IVP No Longer Active [facility] 08/13/2011 [facility] acetaminophen-hydrocodone 325 mg-5 mg oral tablet 1 tab, Route: PO, Drug Form: TAB, Q4H, PRN Pain Score 1-5, Start date: 08/13/11 9:59:00, Duration: 30 day, Stop date: 09/12/11 9:58:00 PO No Longer Active [facility] 08/13/2011 [facility] Saline Flush 0.9% 5 ml, Route: IVP, Drug Form: INJ, Q12H, Start date: 08/13/11 9:00:00, Duration: 30 day, Stop date: 09/11/11 21:00:00 IVP No Longer Active [facility] 08/13/2011 [facility] Saline Flush 0.9% 5 ml, Route: IVP, Drug Form: INJ, PRN, PRN Line Flush, Start date: 08/13/11 6:43:00, Duration: 30 day, Stop date: 09/12/11 6:42:00 IVP No Longer Active [facility] 08/13/2011 [facility] finasteride 5 mg oral tablet Substitution Allowed Active 08/13/2011 [facility] tamsulosin 0.4 mg oral capsule Substitution Allowed Active 08/13/2011 [facility] oxybutynin 5 mg oral tablet 5 mg, 1 tab, PO, TID, PRN, 30 tab, Other-See Comments, Substitution Allowed, TAB PO Active 08/13/2011 [facility] enalapril 60 mg, Substitution Allowed No Longer Active 08/13/2011 [facility] metoprolol 100 mg oral tablet 100 mg, PO, Substitution Allowed PO No Longer Active 08/13/2011 [facility] Allergies, Adverse Reactions, Alerts Substance Category Reaction Severity Reaction type Status Date Reported Comments Source penicillins drug allergy Allergy Active [facility] Immunizations No Data Provided for This Section Results Order Name Results Value Reference Range Date Interpretation Comments Source CHEMISTRY Magnesium Lvl 1.9 1.8 - 2.4 08/15/2011 Normal [facility] CHEMISTRY Glucose Lvl 105 08/15/2011 NA <sup>1</sup>Interpretive Data: Reference Ranges : 0 - 7 days : 41 - 90 mg/dL 7 days - 150 yrs : 70 - 99 mg/dL (fasting), based on the clinical recommendations of the [place] [employer]. [facility] CHEMISTRY Creatinine Lvl 0.8 0.5 - 1.4 08/15/2011 Normal [facility] CHEMISTRY Sodium Lvl 143 135 - 145 08/15/2011 Normal [facility] CHEMISTRY CO2 22 24 - 32 08/15/2011 LOW [facility] CHEMISTRY Calcium Lvl 7.6 8.5 - 10.5 08/15/2011 LOW [facility] CHEMISTRY BUN 25 7 - 22 08/15/2011 HI [facility] CHEMISTRY Chloride Lvl 109 95 - 109 08/15/2011 Normal [facility] CHEMISTRY Potassium Lvl 3.6 3.5 - 5.1 08/15/2011 [facility] CHEMISTRY AGAP 15.6 10.0 - 20.0 08/15/2011 Normal [facility] HEMATOLOGY Eosinophils # 0.0 0.0 - 0.5 08/15/2011 Normal [facility] HEMATOLOGY Basophils 0.2 0.0 - 1.0 08/15/2011 Normal [facility] HEMATOLOGY Segs-Bands # 6.4 1.5 - 8.1 08/15/2011 Normal [facility] HEMATOLOGY Monocytes 11.6 2.0 - 12.0 08/15/2011 Normal [facility] HEMATOLOGY Basophils # 0.0 0.0 - 0.2 08/15/2011 [facility] HEMATOLOGY Lymphocytes # 1.0 1.0 - 5.5 08/15/2011 [facility] HEMATOLOGY Monocytes # 1.0 0.0 - 0.8 08/15/2011 [facility] HEMATOLOGY Eosinophils 0.5 0.0 - 4.0 08/15/2011 [facility] HEMATOLOGY Lymphocytes 11.9 20.0 - 40.0 08/15/2011 [facility] HEMATOLOGY Segs 75.8 45.0 - 75.0 08/15/2011 [facility] HEMATOLOGY PT 18.1 12.0 - 14.7 08/15/2011 [facility] HEMATOLOGY INR 1.51 0.85 - 1.17 08/15/2011 [place] <sup>4</sup>Interpretive Data: RECOMMENDED RANGES FOR PROTIME INR: 2.0- 3.0 for most medical and surgical thromboembolic states. 2.5-3.5 for artificial heart valves and recurrent embolism. INR SHOULD BE USED ONLY FOR PATIENTS ON STABLE ANTICOAGULANT THERAPY. [facility] HEMATOLOGY MPV 7.8 7.4 - 10.4 08/15/2011 [facility] HEMATOLOGY Platelet 119 133 - 450 08/15/2011 [facility] HEMATOLOGY RDW 15.3 11.5 - 14.5 08/15/2011 [facility] HEMATOLOGY MCH 32.7 27.0 - 31.0 08/15/2011 [facility] HEMATOLOGY MCV 96.2 80.0 - 94.0 08/15/2011 [facility] HEMATOLOGY MCHC 34.0 32.0 - 36.0 08/15/2011 [facility] HEMATOLOGY Hct 34.9 42.0 - 54.0 08/15/2011 [facility] HEMATOLOGY WBC 8.5 3.7 - 10.4 08/15/2011 [facility] HEMATOLOGY Hgb 11.9 14.0 - 18.0 08/15/2011 [facility] HEMATOLOGY RBC 3.63 4.70 - 6.10 08/15/2011 [facility] CHEMISTRY CO2 25 24 - 32 08/14/2011 [facility] CHEMISTRY AGAP 15.0 10.0 - 20.0 08/14/2011 [facility] CHEMISTRY Calcium Lvl 7.3 8.5 - 10.5 08/14/2011 [facility] CHEMISTRY Creatinine Lvl 0.9 0.5 - 1.4 08/14/2011 Normal [facility] CHEMISTRY Chloride Lvl 106 95 - 109 08/14/2011 Normal [facility] CHEMISTRY BUN 26 7 - 22 08/14/2011 [facility] CHEMISTRY Glucose Lvl 137 08/14/2011 NA <sup>2</sup>Interpretive Data: Reference Ranges : 0 - 7 days : 41 - 90 mg/dL 7 days - 150 yrs : 70 - 99 mg/dL (fasting), based on the clinical recommendations of the [place] [employer]. [facility] CHEMISTRY Sodium Lvl 142 135 - 145 08/14/2011 Normal [facility] CHEMISTRY Potassium Lvl 4.0 3.5 - 5.1 08/14/2011 [facility] CHEMISTRY Magnesium Lvl 1.6 1.8 - 2.4 08/14/2011 [facility] HEMATOLOGY Platelet 146 133 - 450 08/14/2011 Normal [facility] HEMATOLOGY MPV 7.4 7.4 - 10.4 08/14/2011 [facility] HEMATOLOGY RDW 15.0 11.5 - 14.5 08/14/2011 [facility] HEMATOLOGY MCH 33.1 27.0 - 31.0 08/14/2011 [facility] HEMATOLOGY MCHC 34.9 32.0 - 36.0 08/14/2011 [facility] HEMATOLOGY MCV 94.7 80.0 - 94.0 08/14/2011 [facility] HEMATOLOGY Hct 34.4 42.0 - 54.0 08/14/2011 [facility] HEMATOLOGY RBC 3.63 4.70 - 6.10 08/14/2011 [facility] HEMATOLOGY Hgb 12.0 14.0 - 18.0 08/14/2011 [facility] HEMATOLOGY WBC 10.0 3.7 - 10.4 08/14/2011 [facility] HEMATOLOGY INR 1.46 0.85 - 1.17 08/14/2011 [place] <sup>5</sup>Interpretive Data: RECOMMENDED RANGES FOR PROTIME INR: 2.0- 3.0 for most medical and surgical thromboembolic states. 2.5-3.5 for artificial heart valves and recurrent embolism. INR SHOULD BE USED ONLY FOR PATIENTS ON STABLE ANTICOAGULANT THERAPY. [facility] HEMATOLOGY PT 17.7 12.0 - 14.7 08/14/2011 [facility] HEMATOLOGY Basophils # 0.0 0.0 - 0.2 08/14/2011 Normal [facility] HEMATOLOGY Eosinophils # 0.0 0.0 - 0.5 08/14/2011 Normal [facility] HEMATOLOGY Monocytes # 1.2 0.0 - 0.8 08/14/2011 [facility] HEMATOLOGY Segs-Bands # 7.7 1.5 - 8.1 08/14/2011 Normal [facility] HEMATOLOGY Lymphocytes # 1.1 1.0 - 5.5 08/14/2011 Normal [facility] HEMATOLOGY Basophils 0.3 0.0 - 1.0 08/14/2011 Normal [facility] HEMATOLOGY Monocytes 11.8 2.0 - 12.0 08/14/2011 Normal [facility] HEMATOLOGY Lymphocytes 11.0 20.0 - 40.0 08/14/2011 LOW [facility] HEMATOLOGY Segs 76.9 45.0 - 75.0 08/14/2011 [facility] HEMATOLOGY Eosinophils 0.0 0.0 - 4.0 08/14/2011 Normal [facility] CHEMISTRY AGAP 13.5 10.0 - 20.0 08/13/2011 Normal [facility] CHEMISTRY CO2 27 24 - 32 08/13/2011 Normal [facility] CHEMISTRY Calcium Lvl 7.9 8.5 - 10.5 08/13/2011 LOW [facility] CHEMISTRY Sodium Lvl 142 135 - 145 08/13/2011 Normal [facility] CHEMISTRY Chloride Lvl 105 95 - 109 08/13/2011 Normal [facility] CHEMISTRY Creatinine Lvl 0.9 0.5 - 1.4 08/13/2011 Normal [facility] CHEMISTRY Potassium Lvl 3.5 3.5 - 5.1 08/13/2011 Normal [facility] CHEMISTRY BUN 17 7 - 22 08/13/2011 Normal [facility] CHEMISTRY Glucose Lvl 105 08/13/2011 NA <sup>3</sup>Interpretive Data: Reference Ranges : 0 - 7 days : 41 - 90 mg/dL 7 days - 150 yrs : 70 - 99 mg/dL (fasting), based on the clinical recommendations of the [place] [employer]. [facility] HEMATOLOGY Basophils # 0.0 0.0 - 0.2 08/13/2011 Normal [facility] HEMATOLOGY Eosinophils # 0.1 0.0 - 0.5 08/13/2011 [facility] HEMATOLOGY Segs 59.4 45.0 - 75.0 08/13/2011 [facility] HEMATOLOGY Lymphocytes 25.9 20.0 - 40.0 08/13/2011 [facility] HEMATOLOGY Monocytes 11.4 2.0 - 12.0 08/13/2011 [facility] HEMATOLOGY Eosinophils 2.9 0.0 - 4.0 08/13/2011 [facility] HEMATOLOGY Basophils 0.4 0.0 - 1.0 08/13/2011 [facility] HEMATOLOGY Segs-Bands # 3.0 1.5 - 8.1 08/13/2011 [facility] HEMATOLOGY Monocytes # 0.6 0.0 - 0.8 08/13/2011 [facility] HEMATOLOGY Lymphocytes # 1.3 1.0 - 5.5 08/13/2011 [facility] HEMATOLOGY MCHC 33.8 32.0 - 36.0 08/13/2011 [facility] HEMATOLOGY WBC 5.1 3.7 - 10.4 08/13/2011 [facility] HEMATOLOGY Hct 41.1 42.0 - 54.0 08/13/2011 [facility] HEMATOLOGY Hgb 13.9 14.0 - 18.0 08/13/2011 [facility] HEMATOLOGY MCV 95.3 80.0 - 94.0 08/13/2011 [facility] HEMATOLOGY MCH 32.2 27.0 - 31.0 08/13/2011 [facility] HEMATOLOGY RDW 14.7 11.5 - 14.5 08/13/2011 [facility] HEMATOLOGY Platelet 131 133 - 450 08/13/2011 [facility] HEMATOLOGY MPV 7.7 7.4 - 10.4 08/13/2011 [facility] HEMATOLOGY RBC 4.31 4.70 - 6.10 08/13/2011 [facility] HEMATOLOGY PT 16.9 12.0 - 14.7 08/13/2011 [facility] HEMATOLOGY INR 1.38 0.85 - 1.17 08/13/2011 [place] <sup>6</sup>Interpretive Data: RECOMMENDED RANGES FOR PROTIME INR: 2.0- 3.0 for most medical and surgical thromboembolic states. 2.5-3.5 for artificial heart valves and recurrent embolism. INR SHOULD BE USED ONLY FOR PATIENTS ON STABLE ANTICOAGULANT THERAPY. [facility] HEMATOLOGY PTT 33.2 22.9 - 35.8 08/13/2011 Normal <sup>7</sup>Interpretive Data: Heparin Therapeutic Range: 57 - 92 Seconds [facility] URINALYSIS UA Ketones Negative mg/dL *NA* (08/13/2011 06:48:00) Negative 08/13/2011 NA [facility] URINALYSIS UA Bili Negative *NA* (08/13/2011 06:48:00) Negative 08/13/2011 NA [facility] URINALYSIS UA Blood Negative (08/13/2011 06:48:00) Negative 08/13/2011 Normal [facility] URINALYSIS UA Nitrite Negative (08/13/2011 06:48:00) Negative 08/13/2011 Normal [facility] URINALYSIS UA Glucose Negative mg/dL *NA* (08/13/2011 06:48:00) Negative 08/13/2011 NA [facility] URINALYSIS UA RBC 3 0 - 2 08/13/2011 [facility] URINALYSIS UA Mucus Few /LPF *NA* (08/13/2011 06:48:00) None Seen 08/13/2011 NA [facility] URINALYSIS UA Sq Epi None Seen 08/13/2011 NA [facility] URINALYSIS UA Leuk Est Moderate *ABN* (08/13/2011 06:48:00) Negative 08/13/2011 ABN [facility] URINALYSIS UA WBC 31 0 - 5 08/13/2011 HI [facility] URINALYSIS UA Urobilinogen 0.1 - 1.0 08/13/2011 NA [facility] URINALYSIS UA Turbidity Clear (08/13/2011 06:48:00) Clear 08/13/2011 Normal [facility] URINALYSIS UA Spec Grav 1.014 <=1.030 08/13/2011 Normal [facility] URINALYSIS UA pH 7.0 5.0 - 8.0 08/13/2011 Normal [facility] URINALYSIS UA Protein 30 mg/dL *ABN* (08/13/2011 06:48:00) Negative 08/13/2011 ABN [facility] URINALYSIS UA Color Yellow *NA* (08/13/2011 06:48:00) Yellow 08/13/2011 NA [facility] BLOOD BANK RESULTS Antibody Scrn Negative (08/13/2011 06:15:00) 08/13/2011 Normal [facility] BLOOD BANK RESULTS ABO/Rh A POS 08/13/2011 Unknown [facility] Pathology Reports No Data Provided for This Section Diagnostic Reports No Data Provided for This Section Consultation Notes No Data Provided for This Section Discharge Summaries No Data Provided for This Section History and Physicals No Data Provided for This Section Vital Signs Vital Sign Value Date Comments Source Respitory Rate 18 08/15/2011 [facility] Systolic (mm Hg) 134 08/15/2011 [facility] Diastolic (mm Hg) 80 08/15/2011 [facility] Temperature Oral (F) 98.0 F 08/15/2011 [facility] Heart Rate 74 08/15/2011 [facility] Systolic (mm Hg) 170 08/15/2011 [facility] Diastolic (mm Hg) 94 08/15/2011 [facility] Heart Rate 72 08/15/2011 [facility] Respitory Rate 18 08/15/2011 [facility] Systolic (mm Hg) 149 08/15/2011 [facility] Temperature Oral (F) 98.0 F 08/15/2011 [facility] Respitory Rate 18 08/15/2011 [facility] Diastolic (mm Hg) 94 08/15/2011 [facility] Heart Rate 72 08/15/2011 [facility] Temperature Oral (F) 97.0 F 08/15/2011 [facility] Height 165.10 cm 08/13/2011 [facility] Weight 93.182 08/13/2011 [facility] Weight 93.182 08/13/2011 [facility] Height 175.26 cm 08/13/2011 [facility] Encounters Location Location Details Encounter Type Encounter Number Reason For Visit Attending Provider ADM Date DC Date Status Source [facility] OU [id number] CCL/ AFIB/ EPS PVI ABLATION/ *MARIANA*/ *TRANSEPTAL ICE*/ . ALLISON FELIPE 08/14/2011 08/15/2011 Active [facility] Procedures No Data Provided for This Section Assessment and Plan No Data Provided for This Section Plan of Care No Data Provided for This Section Social History No Data Provided for This Section Family History No Data Provided for This Section Advance Directives No Data Provided for This Section Functional Status No Data Provided for This Section
--- NOTE | 2019-01-08 11:31 | NUR ---
PATIENT TO ROOM 1
--- NOTE | 2019-01-08 12:11 | Diagnostic Imaging Report ---
Exam: Right hand 3 views History: Lacerations Comparison: None. Findings: Bandage material overlies the right hand which limits evaluation. Suspected laceration along the medial margin, adjacent to the fifth metacarpal and proximal phalanx. No underlying acute osseous abnormality or radiopaque soft tissue foreign body. 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 Atherosclerotic vascular calcifications. Impression: 1. Laceration along the dorsal-medial hand as above. No radiopaque foreign body per clinical query. Signed by: Dr. Huber Delgado M.D. on 01/08/2019 12:07 PM
--- NOTE | 2019-01-08 12:54 | NUR ---
eGri BRANDT AT BEDSIDE CLEANING WOUND AND SURTURING PATIENT
[2019-01-08] MEDS ORDERED: TETANUS/DIPHTHERIA TOX ADULT 0.5 ML SYR IM ONE (13:00)
== END 2019-01-08 13:57 | disposition home or self-care (01) ==
LOC: ER 10:47
DX: S61.411A Laceration without foreign body of right hand, initial encounter (principal); W01.111A Fall on same level from slipping, tripping and stumbling with subsequent striking against power tool or machine, initial encounter; Y93.89 Activity, other specified; Y92.018 Other place in single-family (private) house as the place of occurrence of the external cause
CPT/HCPCS: 90471; 90714; 99284

== ENCOUNTER 2019-02-14 11:55 | Emergency (ER) | payer MEDICARE, OTHER ==
[~2019-02-14] VITALS: Ht 175.3 cm; Wt 99.8 kg
--- OUTSIDE RECORDS SUMMARY | 2019-02-14 11:59 | XMS REPORT | Continuity of Care Document ---
Author Author [facility] Organization [facility] Address Unknown Phone Unavailable Care Team Providers Care Waxer Name Role Phone [facility] [employer] Unavailable Unavailable Problems Problem Status Onset Date Classification Date Reported Comments Source CCL/ AFIB/ EPS PVI ABLATION/ *MARIANA*/ *TRANSEPTAL ICE*/ G Active 07/23/2011 [facility] CCL/ AFIB/ EPS PVI ABLATION/ *MARIANA*/ *TRANSEPTAL ICE*/ . Active 07/23/2011 [facility] Ablation Active Problem 08/17/2011 [facility] HTN - Hypertension Active Problem 08/17/2011 [facility] Medications Medication Details Route Status Patient Instructions Ordering Provider Order Date Source Norvasc 5 mg oral tablet 5 mg, 1 tab, PO, Daily, 30 tab, 2, 2, Substitution Allowed, TAB PO Active [facility] 08/15/2011 [facility] hydrALAZINE 20 mg, 1 mL, Route: IV, Drug form: INJ, ONCE, Start date: 08/15/11 12:40:00, Stop date: 08/15/11 12:40:00 IV No Longer Active [facility] 08/15/2011 [facility] K-Dur 20 40 mEq, 2 tab, Route: PO, Drug form: ERTAB, ONCE, Start date: 08/15/11 10:30:00, Stop date: 08/15/11 10:30:00 PO No Longer Active [facility] 08/15/2011 [facility] metoprolol 100 mg, 1 tab, Route: PO, Drug form: ERTAB, ONCE, Start date: 08/15/11 10:30:00, Stop date: 08/15/11 10:30:00 PO No Longer Active Ferrando 08/15/2011 [facility] hydrALAZINE 10 mg, 0.5 mL, Route: IV, Drug form: INJ, ONCE, Start date: 08/15/11 10:30:00, Stop date: 08/15/11 10:30:00 IV No Longer Active [facility] 08/15/2011 [facility] warfarin 2 mg oral tablet 2 mg, 1 tab, PO, Daily, 30 tab, 2, 2, Substitution Allowed PO Active [facility] 08/15/2011 [facility] Metoprolol Succinate ER 100 mg oral tablet, extended release 1 tab, Route: PO, ONCE, Start date: 08/15/11 9:59:00, Stop date: 08/15/11 9:59:00 PO No Longer Active [facility] 08/15/2011 [facility] hydrALAZINE 10 mg, Route: IV, ONCE, Start date: 08/15/11 9:58:00, Stop date: 08/15/11 9:58:00 IV No Longer Active [facility] 08/15/2011 [facility] potassium chloride 40 mEq, Route: PO, Drug form: ERTAB, ONCE, Start date: 08/15/11 9:57:00, Duration: 1 doses or times, Stop date: 08/15/11 9:57:00, For K=3.5 - 3.9 mEq/LFor K=3.5 - 3.9 mEq/L PO No Longer Active [facility] 08/15/2011 [facility] Metoprolol Succinate ER 200 mg oral tablet, extended release 200 mg, 1 tab, PO, BID, 60 tab, 2, 2, Substitution Allowed PO Active [facility] 08/15/2011 [facility] Macrobid 100 mg oral capsule 1 cap, PO, BID, 8 cap, Substitution Allowed PO Active [facility] 08/15/2011 [facility] Protonix 40 mg oral enteric coated tablet 40 mg, 1 tab, PO, Before Dinner, 30 tab, Substitution Allowed, ECTAB [facility] 08/[facility]/2011 [facility] Carafate 1 g oral tablet 1 gm, 1 tab, PO, QID, 28 tab, Substitution Allowed, TAB PO Active [facility] 08/15/2011 [facility] acetaminophen-hydrocodone 325 mg-5 mg oral tablet 1 tab, PO, Q4H, PRN, 40 tab, Pain Score 1-5, Substitution Allowed, Maintenance, TAB PO [facility] 08/15/2011 [facility] AMIODarone 200 mg oral tablet 200 mg, 1 tab, PO, BID, 60 tab, 2, 2, Substitution Allowed, TAB PO [facility] 08/15/2011 [facility] enalapril 20 mg oral tablet 40 mg, 2 tab, PO, Daily, 60 tab, Substitution Allowed, TAB PO Active [facility] 08/15/2011 [facility] hydrALAZINE 10 mg, 0.5 mL, Route: IV, Drug form: INJ, ONCE, Start date: 08/15/11 0:30:00, Stop date: 08/15/11 0:30:00 IV No Longer Active [facility] 08/15/2011 [facility] Colace 50 mg oral capsule 50 mg, 1 cap, Route: PO, Drug form: CAP, Bedtime, Start date: 08/14/11 21:00:00, Duration: 30 day, Stop date: 09/12/11 21:00:00 PO No Longer Active [facility] 08/15/2011 [facility] warfarin 5 mg, 1 tab, Route: PO, Drug form: TAB, Q5PM, Start date: 08/14/11 17:00:00, Duration: 1 doses or times, Stop date: 08/14/11 17:00:00 PO No Longer Active [facility] 08/14/2011 [facility] Lasix 40 mg oral tablet 40 mg, 1 tab, Route: PO, Drug form: TAB, Daily, Start date: 08/14/11 10:00:00, Duration: 30 day, Stop date: 09/13/11 9:00:00 PO No Longer Active [facility] 08/14/2011 [facility] ibuprofen 200 mg oral tablet 400 mg, 1 tab, Route: PO, Drug form: TAB, Q4H, PRN Pain, Start date: 08/14/11 9:43:00, Duration: 30 day, Stop date: 09/13/11 9:42:00 PO No Longer Active [facility] 08/14/2011 [facility] finasteride 5 mg, 1 tab, Route: PO, Drug form: TAB, Daily, Start date: 08/14/11 9:00:00, Duration: 30 day, Stop date: 09/12/11 9:00:00 PO No Longer Active [facility] 08/14/2011 [facility] enalapril 40 mg, 2 tab, Route: PO, Drug form: TAB, Daily, Start date: 08/14/11 9:00:00, Duration: 30 day, Stop date: 09/12/11 9:00:00 PO No Longer Active [facility] 08/14/2011 [facility] Macrobid 100 mg, Route: PO, Drug form: CAP, [id number], Start date: 08/14/11 9:00:00, Duration: 5 day, Stop date: 08/18/11 21:00:00 PO No Longer Active [facility] 08/14/2011 [facility] Macrodantin 100 mg, 1 cap, Route: PO, Drug form: CAP, Q6H- 02, Start date: 08/14/11 9:00:00, Duration: 5 day, Stop date: 08/19/11 3:00:00 PO No Longer Active [facility] 08/14/2011 [facility] ciprofloxacin 500 mg, 1 tab, Route: PO, Drug form: TAB, Q12H, Start date: 08/14/11 9:00:00, Duration: 5 day, Stop date: 08/18/11 21:00:00 PO No Longer Active [facility] 08/14/2011 [facility] Saline Flush 0.9% 5 ml, Route: IVP, Drug Form: INJ, Q12H, Start date: 08/13/11 21:00:00, Duration: 30 day, Stop date: 09/12/11 9:00:00 IVP No Longer Active [facility] 08/14/2011 [facility] metoprolol 100 mg, 1 tab, Route: PO, Drug form: TAB, BID, Start date: 08/13/11 17:00:00, Duration: 30 day, Stop date: 09/12/11 9:00:00 PO No Longer Active [facility] 08/13/2011 [facility] warfarin 5 mg, 1 tab, Route: PO, Drug form: TAB, Q5PM, Start date: 08/13/11 17:00:00, Duration: 1 doses or times, Stop date: 08/13/11 17:00:00 PO No Longer Active [facility] 08/13/2011 [facility] AMIODarone 200 mg, 1 tab, Route: PO, Drug form: TAB, BID, Start date: 08/13/11 17:00:00, Duration: 30 day, Stop date: 09/12/11 9:00:00 PO No Longer Active [facility] 08/13/2011 [facility] Protonix 40 mg, 1 tab, Route: PO, Drug form: ECTAB, Before Dinner, Start date: 08/13/11 16:30:00, Duration: 30 day, Stop date: 09/11/11 16:30:00 PO No Longer Active [facility] 08/13/2011 [facility] Carafate 1 gm, 1 tab, Route: PO, Drug form: TAB, QID, Start date: 08/13/11 13:00:00, Duration: 7 day, Stop date: 08/20/11 9:00:00 PO No Longer Active [facility] 08/13/2011 [facility] Restoril 30 mg, 2 cap, Route: PO, Drug form: CAP, Bedtime, PRN Sleep, Start date: 08/13/11 10:38:00, Duration: 30 day, Stop date: 09/12/11 10:37:00 PO No Longer Active [facility] 08/13/2011 [facility] Saline Flush 0.9% 5 ml, Route: IVP, Drug Form: INJ, PRN, PRN Line Flush, Start date: 08/13/11 9:59:00, Duration: 30 day, Stop date: 09/12/11 9:58:00 IVP No Longer Active [facility] 08/13/2011 [facility] Zofran 4 mg, 2 mL, Route: IVP, Drug form: INJ, Q8H, PRN Nausea, Start date: 08/13/11 9:59:00, Duration: 30 day, Stop date: 09/12/11 9:58:00 IVP No Longer Active [facility] 08/13/2011 [facility] magnesium oxide 400 mg, 1 tab, Route: PO, Drug form: TAB, Daily, PRN Abnormal Lab Result, Start date: 08/13/11 9:59:00, Duration: 30 day, Stop date: 09/12/11 9:58:00 PO No Longer Active [facility] 08/13/2011 [facility] potassium chloride 20 mEq oral tablet, extended release 20 mEq, 1 tab, Route: PO, Drug form: ERTAB, Daily, PRN Abnormal Lab Result, Replacement for potassium less than 3.5, Start date: 08/13/11 9:59:00, Duration: 30 day, Stop date: 09/12/11 9:58:00 PO No Longer Active [facility] 08/13/2011 [facility] Ambien 10 mg, Route: PO, Bedtime, PRN Insomnia, Start date: 08/13/11 9:59:00, Duration: 30 day, Stop date: 09/12/11 9:58:00 PO No Longer Active [facility] 08/13/2011 [facility] morphine Sulfate 2 mg, 1 mL, Route: IVP, Drug form: INJ, Q15Min, PRN Chest Pain, Start date: 08/13/11 9:59:00, Duration: 2 doses or times, Stop date: 08/13/11 18:00:00 IVP No Longer Active [facility] 08/13/2011 [facility] acetaminophen-hydrocodone 325 mg-5 mg oral tablet 1 tab, Route: PO, Drug Form: TAB, Q4H, PRN Pain Score 1-5, Start date: 08/13/11 9:59:00, Duration: 30 day, Stop date: 09/12/11 9:58:00 PO No Longer Active [facility] 08/13/2011 [facility] Saline Flush 0.9% 5 ml, Route: IVP, Drug Form: INJ, Q12H, Start date: 08/13/11 9:00:00, Duration: 30 day, Stop date: 09/11/11 21:00:00 IVP No Longer Active [facility] 08/13/2011 [facility] Saline Flush 0.9% 5 ml, Route: IVP, Drug Form: INJ, PRN, PRN Line Flush, Start date: 08/13/11 6:43:00, Duration: 30 day, Stop date: 09/12/11 6:42:00 IVP No Longer Active [facility] 08/13/2011 [facility] finasteride 5 mg oral tablet Substitution Allowed Active 08/13/2011 [facility] tamsulosin 0.4 mg oral capsule Substitution Allowed Active 08/13/2011 [facility] oxybutynin 5 mg oral tablet 5 mg, 1 tab, PO, TID, PRN, 30 tab, Other-See Comments, Substitution Allowed, TAB PO Active 08/13/2011 [facility] enalapril 60 mg, Substitution Allowed No Longer Active 08/13/2011 [facility] metoprolol 100 mg oral tablet 100 mg, PO, Substitution Allowed PO No Longer Active 08/13/2011 [facility] Allergies, Adverse Reactions, Alerts Substance Category Reaction Severity Reaction type Status Date Reported Comments Source penicillins drug allergy Allergy Active [facility] Immunizations No Data Provided for This Section Results Order Name Results Value Reference Range Date Interpretation Comments Source CHEMISTRY Magnesium Lvl 1.9 1.8 - 2.4 08/15/2011 Normal [facility] CHEMISTRY Glucose Lvl 105 08/15/2011 NA <sup>1</sup>Interpretive Data: Reference Ranges : 0 - 7 days : 41 - 90 mg/dL 7 days - 150 yrs : 70 - 99 mg/dL (fasting), based on the clinical recommendations of the [place] [employer]. [facility] CHEMISTRY Creatinine Lvl 0.8 0.5 - 1.4 08/15/2011 Normal [facility] CHEMISTRY Sodium Lvl 143 135 - 145 08/15/2011 Normal [facility] CHEMISTRY CO2 22 24 - 32 08/15/2011 LOW [facility] CHEMISTRY Calcium Lvl 7.6 8.5 - 10.5 08/15/2011 LOW [facility] CHEMISTRY BUN 25 7 - 22 08/15/2011 HI [facility] CHEMISTRY Chloride Lvl 109 95 - 109 08/15/2011 Normal [facility] CHEMISTRY Potassium Lvl 3.6 3.5 - 5.1 08/15/2011 [facility] CHEMISTRY AGAP 15.6 10.0 - 20.0 08/15/2011 Normal [facility] HEMATOLOGY Eosinophils # 0.0 0.0 - 0.5 08/15/2011 Normal [facility] HEMATOLOGY Basophils 0.2 0.0 - 1.0 08/15/2011 Normal [facility] HEMATOLOGY Segs-Bands # 6.4 1.5 - 8.1 08/15/2011 Normal [facility] HEMATOLOGY Monocytes 11.6 2.0 - 12.0 08/15/2011 Normal [facility] HEMATOLOGY Basophils # 0.0 0.0 - 0.2 08/15/2011 [facility] HEMATOLOGY Lymphocytes # 1.0 1.0 - 5.5 08/15/2011 [facility] HEMATOLOGY Monocytes # 1.0 0.0 - 0.8 08/15/2011 [facility] HEMATOLOGY Eosinophils 0.5 0.0 - 4.0 08/15/2011 [facility] HEMATOLOGY Lymphocytes 11.9 20.0 - 40.0 08/15/2011 [facility] HEMATOLOGY Segs 75.8 45.0 - 75.0 08/15/2011 [facility] HEMATOLOGY PT 18.1 12.0 - 14.7 08/15/2011 [facility] HEMATOLOGY INR 1.51 0.85 - 1.17 08/15/2011 [place] <sup>4</sup>Interpretive Data: RECOMMENDED RANGES FOR PROTIME INR: 2.0- 3.0 for most medical and surgical thromboembolic states. 2.5-3.5 for artificial heart valves and recurrent embolism. INR SHOULD BE USED ONLY FOR PATIENTS ON STABLE ANTICOAGULANT THERAPY. [facility] HEMATOLOGY MPV 7.8 7.4 - 10.4 08/15/2011 [facility] HEMATOLOGY Platelet 119 133 - 450 08/15/2011 [facility] HEMATOLOGY RDW 15.3 11.5 - 14.5 08/15/2011 [facility] HEMATOLOGY MCH 32.7 27.0 - 31.0 08/15/2011 [facility] HEMATOLOGY MCV 96.2 80.0 - 94.0 08/15/2011 [facility] HEMATOLOGY MCHC 34.0 32.0 - 36.0 08/15/2011 [facility] HEMATOLOGY Hct 34.9 42.0 - 54.0 08/15/2011 [facility] HEMATOLOGY WBC 8.5 3.7 - 10.4 08/15/2011 [facility] HEMATOLOGY Hgb 11.9 14.0 - 18.0 08/15/2011 [facility] HEMATOLOGY RBC 3.63 4.70 - 6.10 08/15/2011 [facility] CHEMISTRY CO2 25 24 - 32 08/14/2011 [facility] CHEMISTRY AGAP 15.0 10.0 - 20.0 08/14/2011 [facility] CHEMISTRY Calcium Lvl 7.3 8.5 - 10.5 08/14/2011 [facility] CHEMISTRY Creatinine Lvl 0.9 0.5 - 1.4 08/14/2011 Normal [facility] CHEMISTRY Chloride Lvl 106 95 - 109 08/14/2011 Normal [facility] CHEMISTRY BUN 26 7 - 22 08/14/2011 [facility] CHEMISTRY Glucose Lvl 137 08/14/2011 NA <sup>2</sup>Interpretive Data: Reference Ranges : 0 - 7 days : 41 - 90 mg/dL 7 days - 150 yrs : 70 - 99 mg/dL (fasting), based on the clinical recommendations of the [place] [employer]. [facility] CHEMISTRY Sodium Lvl 142 135 - 145 08/14/2011 Normal [facility] CHEMISTRY Potassium Lvl 4.0 3.5 - 5.1 08/14/2011 [facility] CHEMISTRY Magnesium Lvl 1.6 1.8 - 2.4 08/14/2011 [facility] HEMATOLOGY Platelet 146 133 - 450 08/14/2011 Normal [facility] HEMATOLOGY MPV 7.4 7.4 - 10.4 08/14/2011 [facility] HEMATOLOGY RDW 15.0 11.5 - 14.5 08/14/2011 [facility] HEMATOLOGY MCH 33.1 27.0 - 31.0 08/14/2011 [facility] HEMATOLOGY MCHC 34.9 32.0 - 36.0 08/14/2011 [facility] HEMATOLOGY MCV 94.7 80.0 - 94.0 08/14/2011 [facility] HEMATOLOGY Hct 34.4 42.0 - 54.0 08/14/2011 [facility] HEMATOLOGY RBC 3.63 4.70 - 6.10 08/14/2011 [facility] HEMATOLOGY Hgb 12.0 14.0 - 18.0 08/14/2011 [facility] HEMATOLOGY WBC 10.0 3.7 - 10.4 08/14/2011 [facility] HEMATOLOGY INR 1.46 0.85 - 1.17 08/14/2011 [place] <sup>5</sup>Interpretive Data: RECOMMENDED RANGES FOR PROTIME INR: 2.0- 3.0 for most medical and surgical thromboembolic states. 2.5-3.5 for artificial heart valves and recurrent embolism. INR SHOULD BE USED ONLY FOR PATIENTS ON STABLE ANTICOAGULANT THERAPY. [facility] HEMATOLOGY PT 17.7 12.0 - 14.7 08/14/2011 [facility] HEMATOLOGY Basophils # 0.0 0.0 - 0.2 08/14/2011 Normal [facility] HEMATOLOGY Eosinophils # 0.0 0.0 - 0.5 08/14/2011 Normal [facility] HEMATOLOGY Monocytes # 1.2 0.0 - 0.8 08/14/2011 [facility] HEMATOLOGY Segs-Bands # 7.7 1.5 - 8.1 08/14/2011 Normal [facility] HEMATOLOGY Lymphocytes # 1.1 1.0 - 5.5 08/14/2011 Normal [facility] HEMATOLOGY Basophils 0.3 0.0 - 1.0 08/14/2011 Normal [facility] HEMATOLOGY Monocytes 11.8 2.0 - 12.0 08/14/2011 Normal [facility] HEMATOLOGY Lymphocytes 11.0 20.0 - 40.0 08/14/2011 LOW [facility] HEMATOLOGY Segs 76.9 45.0 - 75.0 08/14/2011 [facility] HEMATOLOGY Eosinophils 0.0 0.0 - 4.0 08/14/2011 Normal [facility] CHEMISTRY AGAP 13.5 10.0 - 20.0 08/13/2011 Normal [facility] CHEMISTRY CO2 27 24 - 32 08/13/2011 Normal [facility] CHEMISTRY Calcium Lvl 7.9 8.5 - 10.5 08/13/2011 LOW [facility] CHEMISTRY Sodium Lvl 142 135 - 145 08/13/2011 Normal [facility] CHEMISTRY Chloride Lvl 105 95 - 109 08/13/2011 Normal [facility] CHEMISTRY Creatinine Lvl 0.9 0.5 - 1.4 08/13/2011 Normal [facility] CHEMISTRY Potassium Lvl 3.5 3.5 - 5.1 08/13/2011 Normal [facility] CHEMISTRY BUN 17 7 - 22 08/13/2011 Normal [facility] CHEMISTRY Glucose Lvl 105 08/13/2011 NA <sup>3</sup>Interpretive Data: Reference Ranges : 0 - 7 days : 41 - 90 mg/dL 7 days - 150 yrs : 70 - 99 mg/dL (fasting), based on the clinical recommendations of the [place] [employer]. [facility] HEMATOLOGY Basophils # 0.0 0.0 - 0.2 08/13/2011 Normal [facility] HEMATOLOGY Eosinophils # 0.1 0.0 - 0.5 08/13/2011 [facility] HEMATOLOGY Segs 59.4 45.0 - 75.0 08/13/2011 [facility] HEMATOLOGY Lymphocytes 25.9 20.0 - 40.0 08/13/2011 [facility] HEMATOLOGY Monocytes 11.4 2.0 - 12.0 08/13/2011 [facility] HEMATOLOGY Eosinophils 2.9 0.0 - 4.0 08/13/2011 [facility] HEMATOLOGY Basophils 0.4 0.0 - 1.0 08/13/2011 [facility] HEMATOLOGY Segs-Bands # 3.0 1.5 - 8.1 08/13/2011 [facility] HEMATOLOGY Monocytes # 0.6 0.0 - 0.8 08/13/2011 [facility] HEMATOLOGY Lymphocytes # 1.3 1.0 - 5.5 08/13/2011 [facility] HEMATOLOGY MCHC 33.8 32.0 - 36.0 08/13/2011 [facility] HEMATOLOGY WBC 5.1 3.7 - 10.4 08/13/2011 [facility] HEMATOLOGY Hct 41.1 42.0 - 54.0 08/13/2011 [facility] HEMATOLOGY Hgb 13.9 14.0 - 18.0 08/13/2011 [facility] HEMATOLOGY MCV 95.3 80.0 - 94.0 08/13/2011 [facility] HEMATOLOGY MCH 32.2 27.0 - 31.0 08/13/2011 [facility] HEMATOLOGY RDW 14.7 11.5 - 14.5 08/13/2011 [facility] HEMATOLOGY Platelet 131 133 - 450 08/13/2011 [facility] HEMATOLOGY MPV 7.7 7.4 - 10.4 08/13/2011 [facility] HEMATOLOGY RBC 4.31 4.70 - 6.10 08/13/2011 [facility] HEMATOLOGY PT 16.9 12.0 - 14.7 08/13/2011 [facility] HEMATOLOGY INR 1.38 0.85 - 1.17 08/13/2011 [place] <sup>6</sup>Interpretive Data: RECOMMENDED RANGES FOR PROTIME INR: 2.0- 3.0 for most medical and surgical thromboembolic states. 2.5-3.5 for artificial heart valves and recurrent embolism. INR SHOULD BE USED ONLY FOR PATIENTS ON STABLE ANTICOAGULANT THERAPY. [facility] HEMATOLOGY PTT 33.2 22.9 - 35.8 08/13/2011 Normal <sup>7</sup>Interpretive Data: Heparin Therapeutic Range: 57 - 92 Seconds [facility] URINALYSIS UA Ketones Negative mg/dL *NA* (08/13/2011 06:48:00) Negative 08/13/2011 NA [facility] URINALYSIS UA Bili Negative *NA* (08/13/2011 06:48:00) Negative 08/13/2011 NA [facility] URINALYSIS UA Blood Negative (08/13/2011 06:48:00) Negative 08/13/2011 Normal [facility] URINALYSIS UA Nitrite Negative (08/13/2011 06:48:00) Negative 08/13/2011 Normal [facility] URINALYSIS UA Glucose Negative mg/dL *NA* (08/13/2011 06:48:00) Negative 08/13/2011 NA [facility] URINALYSIS UA RBC 3 0 - 2 08/13/2011 [facility] URINALYSIS UA Mucus Few /LPF *NA* (08/13/2011 06:48:00) None Seen 08/13/2011 NA [facility] URINALYSIS UA Sq Epi None Seen 08/13/2011 NA [facility] URINALYSIS UA Leuk Est Moderate *ABN* (08/13/2011 06:48:00) Negative 08/13/2011 ABN [facility] URINALYSIS UA WBC 31 0 - 5 08/13/2011 HI [facility] URINALYSIS UA Urobilinogen 0.1 - 1.0 08/13/2011 NA [facility] URINALYSIS UA Turbidity Clear (08/13/2011 06:48:00) Clear 08/13/2011 Normal [facility] URINALYSIS UA Spec Grav 1.014 <=1.030 08/13/2011 Normal [facility] URINALYSIS UA pH 7.0 5.0 - 8.0 08/13/2011 Normal [facility] URINALYSIS UA Protein 30 mg/dL *ABN* (08/13/2011 06:48:00) Negative 08/13/2011 ABN [facility] URINALYSIS UA Color Yellow *NA* (08/13/2011 06:48:00) Yellow 08/13/2011 NA [facility] BLOOD BANK RESULTS Antibody Scrn Negative (08/13/2011 06:15:00) 08/13/2011 Normal [facility] BLOOD BANK RESULTS ABO/Rh A POS 08/13/2011 Unknown [facility] Pathology Reports No Data Provided for This Section Diagnostic Reports No Data Provided for This Section Consultation Notes No Data Provided for This Section Discharge Summaries No Data Provided for This Section History and Physicals No Data Provided for This Section Vital Signs Vital Sign Value Date Comments Source Respitory Rate 18 08/15/2011 [facility] Systolic (mm Hg) 134 08/15/2011 [facility] Diastolic (mm Hg) 80 08/15/2011 [facility] Temperature Oral (F) 98.0 F 08/15/2011 [facility] Heart Rate 74 08/15/2011 [facility] Systolic (mm Hg) 170 08/15/2011 [facility] Diastolic (mm Hg) 94 08/15/2011 [facility] Heart Rate 72 08/15/2011 [facility] Respitory Rate 18 08/15/2011 [facility] Systolic (mm Hg) 149 08/15/2011 [facility] Temperature Oral (F) 98.0 F 08/15/2011 [facility] Respitory Rate 18 08/15/2011 [facility] Diastolic (mm Hg) 94 08/15/2011 [facility] Heart Rate 72 08/15/2011 [facility] Temperature Oral (F) 97.0 F 08/15/2011 [facility] Height 165.10 cm 08/13/2011 [facility] Weight 93.182 08/13/2011 [facility] Weight 93.182 08/13/2011 [facility] Height 175.26 cm 08/13/2011 [facility] Encounters Location Location Details Encounter Type Encounter Number Reason For Visit Attending Provider ADM Date DC Date Status Source [facility] OU [id number] CCL/ AFIB/ EPS PVI ABLATION/ *MARIANA*/ *TRANSEPTAL ICE*/ . ALLISON FELIPE 08/14/2011 08/15/2011 Active [facility] Procedures No Data Provided for This Section [...]
[2019-02-14] MEDS ORDERED: ASPIRIN 81 MG CHEW TAB PO ONE (12:15)
[2019-02-14] MEDS ORDERED: SODIUM CHLORIDE 0.9% 1000ML 1,000 ML IV STA (12:17)
--- NOTE | 2019-02-14 12:23 | NUR ---
XRAY AT BEDSIDE FOR CXR
[2019-02-14 12:32] LABS: BASOPHILS # (AUTO) 0.1 (0.0-0.1); BASOPHILS % 0.7 % (0.0-1.0); EOSINOPHILS # (AUTO) 0.1 (0.0-0.4); EOSINOPHILS % 1.8 % (0.0-6.0); HEMOGLOBIN 14.1 g/dL (14.0-18.0); LYMPHOCYTES # (AUTO) 1.1 (1.0-3.2); LYMPHOCYTES % 16.7 % (18.0-39.1); MEAN CORPUSCULAR HEMOGLOBIN 31.9 pg (28-32); MEAN CORPUSCULAR HGB CONC 33.6 g/dL (31-35); MONOCYTES # (AUTO) 0.6 (0.2-0.8); MONOCYTES % 8.7 % (4.4-11.3); NEUTROPHILS # (AUTO) 4.9 (2.1-6.9); NEUTROPHILS % 71.7 % (38.7-80.0); PLATELET COUNT 235 x10e3/uL (140-360); RED BLOOD COUNT 4.42 x10e6/uL (4.3-5.7)
--- NOTE | 2019-02-14 12:39 | Diagnostic Imaging Report ---
EXAMINATION: CHEST SINGLE (PORTABLE) COMPARISON: Chest x-ray 02/13/2018 INDICATION: Weakness, fatigue, chest pain ^CHEST PAIN ^[id number] ^1225 ^Y DISCUSSION: Frontal view of the chest obtained at 1223 hours. HEART AND MEDIASTINUM: The heart is top normal in size possibly due to portable technique LINES: None. LUNGS: The lungs are well inflated and clear. No pneumonia or pulmonary edema. PLEURA: No pleural effusion or pneumothorax. BONES AND SOFT TISSUES: No focal osseous lesion. The soft tissues are normal. IMPRESSION: No acute cardiopulmonary disease. Signed by: Dr. Janet Rodrigues MD on 02/14/2019 12:35 PM
[2019-02-14 13:01] LABS: INR 1.05; PROTHROMBIN TIME 14.2 seconds (11.9-14.5)
[2019-02-14 13:02] LABS: PARTIAL THROMBOPLASTIN TIME 31.9 seconds (23.8-35.5)
[2019-02-14 13:12] LABS: ALANINE AMINOTRANSFERASE 24 IU/L (0-55); ALBUMIN 3.8 g/dL (3.5-5.0); ALBUMIN/GLOBULIN RATIO 0.9 (0.8-2.0); ALKALINE PHOSPHATASE 94 IU/L (40-150); ANION GAP 17.5 mmol/L (8-16); BLOOD UREA NITROGEN 19 mg/dL (7-26); BUN/CREATININE RATIO 13 (6-25); CALCIUM 9.1 mg/dL (8.4-10.2); CARBON DIOXIDE 22 mmol/L (22-29); CHLORIDE 104 mmol/L (98-107); CREATINE KINASE 102 IU/L (30-200); CREATININE, SERUM 1.43 mg/dL (0.72-1.25); EST GLOMERULAR FILTRATION RATE 48 ML/MIN (60-); GLUCOSE 124 mg/dL (74-118); POTASSIUM 4.5 mmol/L (3.5-5.1); SODIUM 139 mmol/L (136-145)
[2019-02-14 13:39] LABS: CLARITY,URINE HAZY (CLEAR); COLOR,URINE YELLOW (YELLOW); KETONES,URINE NEGATIVE (NEGATIVE); LEUKOCYTE ESTERASE ,URINE NEGATIVE (NEGATIVE); NITRITE,URINE NEGATIVE (NEGATIVE); PROTEIN,URINE DIPSTICK 1+ (NEGATIVE); URINE UROBILINOGEN 0.2 mg/dL (0.2 - 1)
[2019-02-14 13:40] LABS: BACTERIA,URINE FEW /HPF; BILIRUBIN,URINE NEGATIVE (NEGATIVE); EPITHELIAL CELLS,URINE FEW /LPF; WBC,URINE (MAN) 0-5 /HPF (0-5)
[2019-02-14 13:41] LABS: AMORPHOUS SEDIMENT,URINE FEW (FEW); HYALINE CASTS 0-1 (0-1)
[2019-02-14 16:33] VITALS: BP 139/92
== END 2019-02-14 16:10 | disposition home or self-care (01) ==
LOC: ER 11:55
DX: R53.1 Weakness (principal); N28.9 Disorder of kidney and ureter, unspecified; E86.0 Dehydration; I48.2 Chronic atrial fibrillation; R31.29 Other microscopic hematuria
CPT/HCPCS: 36415; 71045; 80053; 81001; 82550; 82553; 83880; 84484; 85025; 85610; 85730; 87086; 93005; 99284; J7030

== ENCOUNTER 2020-02-09 20:02 | Inpatient (IN) | payer MEDICARE, OTHER ==
[~2020-02-09] VITALS: Ht 175.3 cm; Wt 91.3 kg
[2020-02-09] MEDS ORDERED: AZITHROMYCIN 500MG/NS 250 ML 250 ML IV ONE (20:15)
[2020-02-09] MEDS ORDERED: SODIUM CHLORIDE 0.9% 1000ML 1,000 ML IV ONE (20:15)
[2020-02-09] MEDS ORDERED: CEFTRIAXONE SOD 1 GM/NS 50 ML 50 ML IV ONE (20:15)
[2020-02-09 20:29] LABS: BASOPHILS % 0.2 % (0.0-1.0); HEMATOCRIT 38.7 % (38.2-49.6); LYMPHOCYTES # (AUTO) 0.5 (1.0-3.2); LYMPHOCYTES % 3.7 % (18.0-39.1); MEAN CORPUSCULAR HEMOGLOBIN 25.8 pg (28-32); MEAN CORPUSCULAR VOLUME 83.2 fL (81-99); MONOCYTES # (AUTO) 0.4 (0.2-0.8); MONOCYTES % 3.1 % (4.4-11.3); NEUTROPHILS # (AUTO) 11.2 (2.1-6.9); NEUTROPHILS % 92.5 % (38.7-80.0); PLATELET COUNT 216 x10e3/uL (140-360); RED BLOOD COUNT 4.65 x10e6/uL (4.3-5.7); RED CELL DISTRIBUTION WIDTH 14.9 % (11.7-14.4)
--- NOTE | 2020-02-09 20:42 | Emergency Department Note ---
History of Present Illnes History of Present Illness Chief Complaint: COVID PUI History of Present Illness This is a 80 year old male since friday patient has been feeling chest congestion, headache, and cough. patient got covid testing in an outpatient center for covid, awaiting results, dr tavera in triage. patients comes in to this ed for physican evaluation due to concern of worsening symptoms. 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 Historian: Patient Arrival Mode: Car Onset (how long ago): day(s) (2) Location: ALL OVER Quality: COUGH, FEVER, LOSS OF TASTE, SOB ON EXERTION, Radiation: Reports non-radiation Severity: mild Onset quality: gradual Duration (how long): day(s) (2) Timing of current episode: constant Progression: worsening Context: Reports recent illness ( ABOVE) Relieving factors: none Exacerbating factors: movement Associated symptoms: Reports denies other symptoms Treatments prior to arrival: NSAID Past Medical/Family History Physician Review I have reviewed the patient's past medical and family history. Any updates have been documented here. Past Medical History Recent Fever: Yes Clinical Suspicion of Infectio: Yes New/Unexplained Change in Ment: No Past Medical History: Hypertension, A-Fib Other Medical History: ARRYTHMIA, PROSTATE Past Surgical History: T&A Other Surgery: tonsilectomy about 40 years ago, CARDIAC ABLATION , PROSTATE PROCEDURE Social History Smoking Cessation: Never Smoker Alcohol Use: None Any Illegal Drug Use: No Family History Family history of heart diseas: Yes Other family history HTN,CAD Other Last Tetanus: UTD Review of Systems Review of Systems Constitutional: Reports as per HPI EENTM: Reports no symptoms Cardiovascular: Reports no symptoms Respiratory: Reports as per HPI Gastrointestinal: Reports no symptoms Genitourinary: Reports no symptoms Musculoskeletal: Reports no symptoms Integumentary: Reports no symptoms Neurological: Reports no symptoms Psychological: Reports no symptoms Endocrine: Reports no symptoms Hematological/Lymphatic: Reports no symptoms Physical Exam Related Data Allergies: Coded Allergies: Penicillins (Verified Allergy, Intermediate, ITCHING, 01/08/19) Triage Vital Signs Vital Signs Date Time Temp Pulse Resp B/P (MAP) Pulse Ox O2 Delivery O2 Flow Rate FiO2 02/09/20 20:06 99.1 102 20 92/70 97 Room Air Vital signs reviewed: Yes Physical Exam CONSTITUTIONAL Constitutional: Present well-developed, Present well-nourished; Absent distressed HENT HENT: Present normocephalic, Present atraumatic, Present oropharynx clear/moist, Present nose normal HENT L/R: Present left ext ear normal, Present right ext ear normal EYES Eyes: Reports PERRL, Reports conjunctivae normal NECK Neck: Present ROM normal PULMONARY Pulmonary: Present effort normal, Present other (BREATH SOUNDS DECREASED AT BASE BILATERAL) CARDIOVASCULAR Cardiovascular: Present irregular rhythm, Present heart sounds normal, Present capillary refill normal, Present tachycardia (102) GASTROINTESTINAL Abdominal: Present soft, Present nontender, Present bowel sounds normal GENITOURINARY Genitourinary: Present exam deferred SKIN Skin: Present warm, Present dry MUSCULOSKELETAL Musculoskeletal: Present ROM normal NEUROLOGICAL Neurological: Present alert, Present oriented x 3, Present no gross motor or sensory deficits PSYCHOLOGICAL Psychological: Present mood/affect normal, Present judgement normal Results Laboratory Laboratory Laboratory Tests Test 02/09/20 21:20 02/09/20 21:00 02/09/20 20:20 Lactic Acid Level 1.7 mmol/L (0.5-2.0) 2.3 mmol/L (0.5-2.0) White Blood Count 12.09 x10e3/uL (4.8-10.8) Red Blood Count 4.65 x10e6/uL (4.3-5.7) Hemoglobin 12.0 g/dL (14.0-18.0) Hematocrit 38.7 % (38.2-49.6) Mean Corpuscular Volume 83.2 fL (81-99) Mean Corpuscular Hemoglobin 25.8 pg (28-32) Mean Corpuscular Hemoglobin Concent 31.0 g/dL (31-35) Red Cell Distribution Width 14.9 % (11.7-14.4) Platelet Count 216 x10e3/uL (140-360) Neutrophils (%) (Auto) 92.5 % (38.7-80.0) Lymphocytes (%) (Auto) 3.7 % (18.0-39.1) Monocytes (%) (Auto) 3.1 % (4.4-11.3) Eosinophils (%) (Auto) 0.0 % (0.0-6.0) Basophils (%) (Auto) 0.2 % (0.0-1.0) Neutrophils # (Auto) 11.2 (2.1-6.9) Lymphocytes # (Auto) 0.5 (1.0-3.2) Monocytes # (Auto) 0.4 (0.2-0.8) Eosinophils # (Auto) 0.0 (0.0-0.4) Basophils # (Auto) 0.0 (0.0-0.1) Absolute Immature Granulocyte (auto 0.06 x10e3/uL (0-0.1) Sodium Level 136 mmol/L (136-145) Potassium Level 4.0 mmol/L (3.5-5.1) Chloride Level 101 mmol/L (98-107) Carbon Dioxide Level 22 mmol/L (22-29) Anion Gap 17.0 mmol/L (8-16) Blood Urea Nitrogen 25 mg/dL (7-26) Creatinine 1.56 mg/dL (0.72-1.25) Estimat Glomerular Filtration Rate 43 ML/MIN (60-) BUN/Creatinine Ratio 16 (6-25) Glucose Level 129 mg/dL (74-118) Calcium Level 8.0 mg/dL (8.4-10.2) Total Bilirubin 1.0 mg/dL (0.2-1.2) Aspartate Amino Transf (AST/SGOT) 37 IU/L (5-34) Alanine Aminotransferase (ALT/SGPT) 23 IU/L (0-55) Alkaline Phosphatase 69 IU/L (40-150) Creatine Kinase 150 IU/L (30-200) Creatine Kinase MB 1.00 ng/mL (0-5.0) Troponin I 0.028 ng/mL (0-0.300) Total Protein 7.2 g/dL (6.5-8.1) Albumin 2.8 g/dL (3.5-5.0) Globulin 4.4 g/dL (2.3-3.5) Albumin/Globulin Ratio 0.6 (0.8-2.0) Laboratory Tests Test 02/09/20 20:20 Lab results reviewed: Yes Imaging Imaging results reviewed: Yes Impressions Procedure: [id number] DX/CHEST SINGLE (PORTABLE) Exam Date: 02/09/20 Exam Time: 2030 REPORT STATUS: Signed EXAMINATION: CHEST SINGLE (PORTABLE) INDICATION: Cough and shortness of breath. COMPARISON: Multiple prior chest x-rays including most recent on 02/14/2019. FINDINGS: TUBES and LINES: None. LUNGS: Low lung volumes. There is multifocal patchy airspace opacities throughout both lungs particularly at the bases. PLEURA: No pleural effusion or pneumothorax. HEART AND MEDIASTINUM: The cardiomediastinal silhouette is unremarkable. BONES AND SOFT TISSUES: No acute osseous lesion. Soft tissues are unremarkable. UPPER ABDOMEN: No free air under the diaphragm. IMPRESSION: Patchy airspace opacities throughout both lungs particularly at the bases which most likely represent multifocal pneumonia, likely viral. Repeat chest radiographs in 6-8 weeks to ensure resolution. Signed by: Pat Andrade MD on 02/09/2020 9:03 PM Dictated By: PAT ANDRADE MD 02 Transcribed By: CARMELITA on 02/09/202102 COPY TO: CHAUNCEY TAVERA MD~ Procedures 12 Lead ECG Interpretation ECG Interpretation : ECG: ECG 1 Practice Specialist: Interpreted by ED physician Date: Feb 09, 2020 Time: 20:14 Rhythm: atrial fibrillation Rate: tachycardia BPM: 108 QRS axis: normal ST segments normal: Yes T waves normal: No T waves flattening: V4, V5, V6 Q waves: III, aVF, V1, V2 Clinical Impression: abnormal ECG Assessment & Plan Medical Decision Making MDM PT WITH CHRONIC AFIB PRESENTS WITH COVID SYMPTOMS SINCE FRIDAY, IS AWAITING COVID TEST RESULTS OXYGEN SATURATION ON ARRIVAL 99% ON ROOM AIR CBC, CMP, EKG, CXR,BLOOD CULTURE, CARDIAC ENZYMES ORDERED TO EVAL FOR ELECTROLYTE ABNORMALITY, PNEUMONIA, LEUKOCYTOSIS, MYOCARDIAL INFARCTION 1 LITER NS IV ORDERED ROCEPHIN 1 GRAM IV ORDERED ZITHROMAX 500 MG IV ORDERED INITIAL LACTIC ACID 2.3, REPEAT LACTIC ACID 1.[address] SUAREZ, DR CLARK AND DR CHUNG, ADMIT TO INPATIENT COVID PUI BED Assessment & Plan Final Impression: (1) Chronic a-fib (2) Suspected COVID-19 virus infection (3) Multifocal pneumonia Depart Disposition: ADMITTED Last Vital Signs Date Time Temp Pulse Resp B/P (MAP) Pulse Ox O2 Delivery O2 Flow Rate FiO2 02/09/20 20:06 99.1 102 20 92/70 97 Room Air Home Meds Reported Medications Trazodone Hcl (TRAZODONE HCL) 50 Mg Tablet, 50 MG PO DAILY, #30 TAB 01/30/16 Tamsulosin Hcl (TAMSULOSIN HCL) 0.4 Mg Cap.er.24h, 0.4 MG PO DAILY 01/30/16 Rivaroxaban (XARELTO) 20 Mg Tablet, 20 MG PO HS 01/30/16 Amoxicillin (AMOXICILLIN) 250 Mg Capsule, 500 MG PO TID, CAP 01/30/16 Amiodarone Hcl (AMIODARONE HCL) 200 Mg Tablet, 100 MG PO DAILY 12/11/15 Amlodipine Besylate (AMLODIPINE BESYLATE) 10 Mg Tablet, 10 MG PO DAILY, #30 TAB 12/09/15 Lisinopril (LISINOPRIL) 10 Mg Tablet, 10 MG PO DAILY, #30 TAB 12/09/15 Losartan Potassium (LOSARTAN POTASSIUM) 100 Mg Tablet, 100 MG PO DAILY, TAB 12/09/15 Finasteride (FINASTERIDE) 5 Mg Tablet, 5 MG PO DAILY, #P 06/08/12 Metoprolol Tartrate (METOPROLOL TARTRATE) 100 Mg Tablet, 100 MG PO BID 06/08/12 Esomeprazole Magnesium (NEXIUM) 40 Mg Capsule.dr, 40 MG PO DAILY 06/08/12 Oxybutynin Chloride (Ditropan 5MG Tab) 5 Mg Tab, 5 MG PO TID 11/29/10 Medications in the ED Sodium Chloride 1,000 ml @ 999 mls/hr Q1H1M ONCE IV Last administered on 02/09/20at 20:18; Admin Dose 999 MLS/HR; Start 02/09/20 at 20:15; Stop 02/09/20 at 21:15 Ceftriaxone Sodium 50 ml @ 100 mls/hr ONCE ONCE IV Last administered on 02/09/20at 20:18; Admin Dose 100 MLS/HR; Start 02/09/20 at 20:15; Stop 02/09/20 at 20:44; Status UNV Azithromycin 250 ml @ 200 mls/hr NOW ONCE IV Last administered on 02/09/20at 20:18; Admin Dose 200 MLS/HR; Start 02/09/20 at 20:15; Stop 02/09/20 at 21:29 CHAUNCEY TAVERA MD Feb 09, 2020 20:42
[2020-02-09 20:44] LABS: ALBUMIN 2.8 g/dL (3.5-5.0); ALBUMIN/GLOBULIN RATIO 0.6 (0.8-2.0); CREATININE, SERUM 1.56 mg/dL (0.72-1.25)
--- NOTE | 2020-02-09 21:07 | Diagnostic Imaging Report ---
EXAMINATION: CHEST SINGLE (PORTABLE) INDICATION: Cough and shortness of breath. COMPARISON: Multiple prior chest x-rays including most recent on 02/14/2019. FINDINGS: TUBES and LINES: None. LUNGS: Low lung volumes. There is multifocal patchy airspace opacities throughout both lungs particularly at the bases. PLEURA: No pleural effusion or pneumothorax. HEART AND MEDIASTINUM: The cardiomediastinal silhouette is unremarkable. BONES AND SOFT TISSUES: No acute osseous lesion. Soft tissues are unremarkable. UPPER ABDOMEN: No free air under the diaphragm. IMPRESSION: Patchy airspace opacities throughout both lungs particularly at the bases which most likely represent multifocal pneumonia, likely viral. Repeat chest radiographs in 6-8 weeks to ensure resolution. Signed by: Pat Vidales MD on 02/09/2020 9:03 PM
[2020-02-09] MEDS: CEFTRIAXONE SOD 1 GRAM/0.9% SOD CHL 50ML BAG IV SCH (22:07)
[2020-02-09] MEDS: AZITHROMYCIN 500MG/SOD CHL 0.9% 250ML BAG IV SCH (22:08)
[2020-02-09] MEDS ORDERED: ACETAMINOPHEN 325 MG TAB PO PRN (22:15)
[2020-02-09] MEDS: SODIUM CHLORIDE 0.9% 1000ML 1,000 ML IV SCH (22:16)
[2020-02-09] MEDS ORDERED: SODIUM CHLORIDE 0.9% 1000ML 1,000 ML ONE (22:17)
[2020-02-09 22:19] LABS: CLARITY,URINE CLEAR (CLEAR); COLOR,URINE YELLOW (YELLOW)
[2020-02-09 22:20] LABS: BILIRUBIN,URINE NEGATIVE (NEGATIVE); KETONES,URINE NEGATIVE (NEGATIVE); LEUKOCYTE ESTERASE ,URINE NEGATIVE (NEGATIVE); NITRITE,URINE NEGATIVE (NEGATIVE); PROTEIN,URINE DIPSTICK 2+ (NEGATIVE); URINE UROBILINOGEN 0.2 mg/dL (0.2 - 1)
[2020-02-09] MEDS: DEXAMETHASONE SOD PHOS 10 MG/1 ML VIAL IV SCH (22:21)
[2020-02-09 22:27] LABS: BACTERIA,URINE FEW /HPF; EPITHELIAL CELLS,URINE FEW /LPF; RBC,URINE 0-5 /HPF (0-5)
[2020-02-09 23:00] VITALS: BP 124/92
--- NOTE | 2020-02-09 23:00 | NUR ---
Patient arrived to the unit from ED and assigned to Rm [id number]. Pt with diagnosis of chronic A-fib, Multifocal PNA, suspected COVID. Alert and oriented x3. Ambulatory in room prn. On IVF (NS at 125ml/hr) and scheduled IV antibiotics. Call melara within reach. Will monitor closely.
[2020-02-10] VITALS (9 sets, daily range): BP systolic 110–139; BP diastolic 77–95
[2020-02-10] MEDS ORDERED: HYDROCHLOROTHIA25 MG PO (02:13)
[2020-02-10] MEDS ORDERED: AMLODIPINE BESY10 MG PO (02:13)
[2020-02-10] MEDS ORDERED: ACETAMINOPHEN500 M1 PO (02:14)
[2020-02-10] MEDS: SODIUM CHLORIDE 0.9% 1000ML 1,000 ML IV SCH (04:35)
[2020-02-10 06:12] LABS: HEMATOCRIT 34.2 % (38.2-49.6); LYMPHOCYTES # (AUTO) 0.3 (1.0-3.2); LYMPHOCYTES % 3.6 % (18.0-39.1); MEAN CORPUSCULAR HEMOGLOBIN 27.3 pg (28-32); MEAN CORPUSCULAR HGB CONC 32.2 g/dL (31-35); MEAN CORPUSCULAR VOLUME 84.9 fL (81-99); MONOCYTES # (AUTO) 0.1 (0.2-0.8); MONOCYTES % 1.6 % (4.4-11.3); NEUTROPHILS # (AUTO) 6.6 (2.1-6.9); NEUTROPHILS % 94.1 % (38.7-80.0); PLATELET COUNT 162 x10e3/uL (140-360); RED BLOOD COUNT 4.03 x10e6/uL (4.3-5.7)
[2020-02-10 06:35] LABS: ALANINE AMINOTRANSFERASE 19 IU/L (0-55); ALBUMIN 2.4 g/dL (3.5-5.0); ALBUMIN/GLOBULIN RATIO 0.6 (0.8-2.0); ALKALINE PHOSPHATASE 71 IU/L (40-150); ANION GAP 13.7 mmol/L (8-16); BLOOD UREA NITROGEN 21 mg/dL (7-26); BUN/CREATININE RATIO 23 (6-25); CALCIUM 7.3 mg/dL (8.4-10.2); CARBON DIOXIDE 20 mmol/L (22-29); CHLORIDE 108 mmol/L (98-107); CREATININE, SERUM 0.93 mg/dL (0.72-1.25); EST GLOMERULAR FILTRATION RATE > 60 ML/MIN (60-); GLUCOSE 125 mg/dL (74-118); POTASSIUM 3.7 mmol/L (3.5-5.1); SODIUM 138 mmol/L (136-145)
--- NOTE | 2020-02-10 06:55 | NUR ---
H&P cc: SOB HPI: 80yoM, PCP , developed sob, with cough and difficulty breathing; No cp. Denies sick contacts. Does have REINA. Feels very weak. PMH: Chr A.fib, HTN, BPH, PShx: unknown allergies; see emr Fh/SH; no illicits; meds; see MAR ROS; no f/c/s/N/V/D/PHAN/skin rash/confusion/leg pain/vision changes/mood changes v/s; revd PE tired appearing anicteric ns1s2 REDUCED BS; COUGH WITH SPEECH AND INSPIRATION soft nt nd no e/t skin dry n. affect a&ox3; elizondo labs/meds revd A/P; Multifocal PNA- ceftriaxone/azithromycin/decadron; COVID testing; Ayaz- improving; hold nephrotoxic meds Severe sepsis- with renal dys; abx as above; fluids if needed UTI- iv abx Chronic A.fib- BB; AC Physical deconditioning- PT Prop; pepcid on AC Dispo: f/u Carlton Boone MD, PhD.
[2020-02-10] MEDS ORDERED: ACETAMINOPHEN 325 MG TAB PO PRN (07:00)
--- NOTE | 2020-02-10 07:00 | NUR ---
Received report from off going night nurse. Patient in stable condition, no s/s of distress noted. telemetry applied. IV fluids infusing, site asymptotic and patent, transparent dressing applied C/D/I. Bed in lowest position and locked, side rails x2, non skid socks applied. Call light within reach.
[2020-02-10 07:12] LABS: CREATINE KINASE MB 1.8 ng/mL (0-5.0)
[2020-02-10] MEDS: AMIODARONE HCL 200 MG TAB PO SCH (10:00)
[2020-02-10] MEDS: FINASTERIDE 5 MG TAB PO SCH (10:00)
[2020-02-10] MEDS: PANTOPRAZOLE SOD 40 MG TABEC PO SCH (10:00)
[2020-02-10 10:10] LABS: MONOCYTES % (MANUAL) 1 % (3.4-9.0); NEUTROPHILS % (MANUAL) 99 % (40-74)
[2020-02-10 10:11] LABS: ANISOCYTOSIS SLIGHT; OVALOCYTES MODERATE; PLATELET ESTIMATE ADEQUATE; PLATELET MORPHOLOGY COMMENT NORMAL; RBC MORPHOLOGY COMMENT ABNORMAL
[2020-02-10 10:12] LABS: ELLIPTOCYTE, RBC SLIGHT
--- NOTE | 2020-02-10 11:15 | NUR ---
PATIENT RECEIVED FROM MED SURG 3 PER STRETCHER. ALERT AND VERBALLY RESPONSIVE, REQUESTED AND RECEIVED A CUP OF ICE WATER. IV FLUID INFUSING ORDERED. BED IN LOWER POSITION, CALL LIGHT AT REACH.
--- NOTE | 2020-02-10 11:19 | NUR ---
Gave report to Stephen MENDOZA. Patient off the unit at 1058. Patient in stable condition, no s/s of distress noted. telemetry applied. IV site asymptotic and patent, transparent dressing applied C/D/I. All personal items taken with transfer to RM 185.
--- NOTE | 2020-02-10 12:33 | NUR ---
Skilled physical therapy services not indicated at this time since patient is independent in functional mobility. Thank you. Addendum: 02/10/20 at 1234 by Derek neo PT Amended: Links added.
[2020-02-10] MEDS: METOPROLOL TARTRATE 25 MG TAB PO SCH ×2 (14:28→21:03)
--- NOTE | 2020-02-10 15:31 | NUR ---
PATIENT C/O BLOOD IN THE URINE. NOTIFIED, NEW ORDER RECEIVED.
[2020-02-10 16:28] LABS: CREATINE KINASE MB 3.4 ng/mL (0-5.0)
--- NOTE | 2020-02-10 16:50 | Consultation ---
DATE OF CONSULTATION: Pulmonary Critical Care Consultation CHIEF COMPLAINT: Hematuria and tachycardia and possible dyspnea. HISTORY OF PRESENT ILLNESS: The patient is an 80-year-old man. He has a history of atrial fibrillation, hypertension, and benign prostatic hypertrophy. The came into the hospital complaining of some hematuria. He noticed some cough and some dyspnea on exertion. He also feels weak. PAST MEDICAL HISTORY: 1. Atrial fibrillation. 2. Hypertension. 3. Benign prostatic hypertrophy. ALLERGIES: THE PATIENT IS ALLERGIC TO PENICILLIN. PAST SURGICAL HISTORY: Transurethral resection of the prostate. FAMILY HISTORY: Noncontributory. SOCIAL HISTORY: The patient is not an active smoker or drinker. PHYSICAL EXAMINATION: VITAL SIGNS: The patient is afebrile. The blood pressure is 139/90, saturation is 97% on room air. HEENT: No facial swelling or erythema. CARDIAC: Regular rate and rhythm with a normal S1, S2. LUNGS: Auscultation of lungs shows clear breath sounds. ABDOMEN: Soft, nontender. There is no rebound or guarding. EXTREMITIES: No leg edema or calf tenderness. LABORATORY DATA: White blood cell count is 6.9, hemoglobin is 11 and the platelet count is 162. The BUN to creatinine ratio is 21 to 0.93. The carbon dioxide is 20. Other electrolytes within normal limits. The albumin is 2.4. RADIOGRAPHIC DATA: Chest x-ray shows patchy airspace opacities bilaterally. IMPRESSION: 1. Viral pneumonia and coronavirus disease-19 infection. 2. Hematuria and history of benign prostatic hypertrophy. 3. Chronic atrial fibrillation. 4. Hypertension. PLAN: 1. Wean the patient off oxygen. 2. Continue amiodarone. 3. Continue anticoagulation provided hematuria does not worsen. 4. Consider Urology consultation. 5. Stop normal saline to prevent worsening hyperchloremic acidosis. 6. Azithromycin. 7. The patient probably does not need dexamethasone because he is not requiring oxygen at this time. Ilan Alcocer MD [facility]/FRANK /[id number]
--- NOTE | 2020-02-10 19:11 | NUR ---
report received from Stephen RN, Patient in stable condition, no s/s of distress noted. telemetry applied. patient stable AOX3, ambulatory, remain on contact isolation positive for COVID, call light within reach will continue to monitor
[2020-02-10] MEDS ORDERED: RIVAROXABAN 20 MG TABLET PO SCH (21:00)
[2020-02-10] MEDS ORDERED: ZOLPIDEM TARTRATE 5 MG TAB PO PRN (21:00)
[2020-02-10] MEDS: CEFTRIAXONE SOD 1 GRAM/0.9% SOD CHL 50ML BAG IV SCH (21:03)
[2020-02-10] MEDS: DEXAMETHASONE SOD PHOS 10 MG/1 ML VIAL IV SCH (21:03)
[2020-02-10] MEDS: AZITHROMYCIN 500MG/SOD CHL 0.9% 250ML BAG IV SCH (22:30)
[2020-02-11] VITALS (9 sets, daily range): BP systolic 111–131; BP diastolic 83–95
--- NOTE | 2020-02-11 06:44 | NUR ---
IM- progress note O/N see below ROS; no f/c/s/N/V/D/PHAN/skin rash/confusion/leg pain/vision changes/mood changes v/s; revd PE tired appearing anicteric ns1s2 REDUCED BS; COUGH WITH SPEECH AND INSPIRATION soft nt nd no e/t skin dry n. affect a&ox3; elizondo labs/meds revd A/P; Multifocal PNA- ceftriaxone/azithromycin/decadron; COVID testing; Ayaz- improving; hold nephrotoxic meds Severe sepsis- with renal dys; abx as above; fluids if needed UTI- iv abx Chronic A.fib- BB; AC Physical deconditioning- PT Prop; pepcid on AC Dispo: f/u 02-10 cont supportive care; Carlton Boone MD, PhD.
--- NOTE | 2020-02-11 07:00 | NUR ---
BEDSIDE SHIFT REPORT RECEIVED FROM THE METHODS EXAMINER RN. EDUCATED PT ABOUT FALL PRECAUTIONS. PT VERBALIZED UNDERSTANDING. BED IS LOW AND LOCKED. SIDE RAILS X2. CALL LIGHT WITH IN EASY REACH. BED ALARM IS ON. PT DENIES NEEDS AT THIS TIME.
[2020-02-11] MEDS: METOPROLOL TARTRATE 25 MG TAB PO SCH ×3 (07:16→20:52)
[2020-02-11] MEDS: ALPRAZOLAM 0.25 MG TAB PO PRN (08:12)
[2020-02-11] MEDS: PANTOPRAZOLE SOD 40 MG TABEC PO SCH (08:13)
[2020-02-11] MEDS: AMIODARONE HCL 200 MG TAB PO SCH (08:13)
[2020-02-11] MEDS: FINASTERIDE 5 MG TAB PO SCH (08:13)
--- NOTE | 2020-02-11 09:38 | Progress Note ---
DATE: SUBJECTIVE: Mr. Cordova is an 80-year-old gentleman, who has history of atrial fibrillation, hypertension, benign prostatic hypertrophy, seems a bit forgetful, comes in with hematuria, not feeling well. The patient comes in. He was admitted. He does have underlying history of atrial fibrillation and hypertension and forgetfulness. PAST SURGICAL HISTORY: TURP. ALLERGIES: NKA. SOCIAL HISTORY: He used to smoke . FAMILY HISTORY: Unremarkable. LABORATORY DATA: Reviewed. Blood cultures are pending and urine cultures are pending. White count on admission 12.29, came down to 6.99. PCR for COVID-19 came back positive. The patient is currently on metoprolol, Cordarone, azithromycin, Rocephin . PHYSICAL EXAMINATION: GENERAL: He is currently alert, oriented. VITAL SIGNS: Stable, afebrile. HEENT: Not icteric. NECK: Supple. CHEST: Clear. HEART: S1, S2. ABDOMEN: Soft. Bowel sounds present. EXTREMITIES: No edema. ASSESSMENT AND PLAN: COVID-19 pneumonia, uncertain how old it is. No type of treatment at the present time. Continue as ordered. Because of hematuria, we cannot do anticoagulation, but the patient is already on Xarelto when he first came here. I discussed with medical team. We will follow. MD FANNY Phillips/FRANK /[id number]
--- NOTE | 2020-02-11 12:08 | NUR ---
DR. MARROQUIN AT BEDSIDE. HOLD TOÑO PER THE DRSuzanne INFORMED THE SAME TO DR. SUAREZ.
--- NOTE | 2020-02-11 14:00 | NUR ---
SERIAL URINE STARTED PER DR. MARROQUIN.
[2020-02-11] MEDS ORDERED: IOPAMIDOL 370 MG/ML 200 ML INFUS..BTL INJ ONE (15:48)
[2020-02-11] MEDS ORDERED: SODIUM CHLORIDE 0.9% 250ML 250 ML ONE (15:48)
--- NOTE | 2020-02-11 16:24 | NUR ---
Nutrition Screen Note RD Recommendation for Physician: -continue current diet as ordered Plan of Care: RD following, monitoring for tolerance and adequacy Nutrition reason for involvement: Nutrition Risk Trigger Primary Diagnose(s): chronic afib, multifocal pneumonia,COVID-19 virus infection PMH: afib, HTN, BPH Ht: 69 in Wt:201.19 lb BMI: 29.7 kg/m2 IBW:[address] Assessment: (02/11/20) Chart reviewed. Labs and meds reviewed. Pt is an 80 year old male admitted with chronic afib, multifocal pneumonia, and COVID-19 virus infection. Unable to enter room due to isolation precautions. Attempted to call pt over the phone, but he did not answer. It is recorded that pt consumed 75-100% of meals yesterday. Per weight history, pt weighed 220 lbs in Feb 2018. Unable to verify weight status with pt at this time. Will continue to monitor Current Diet: cardiac diet Malnutrition Evaluation (02/11/20) Unable to assess due to isolation precautions. Will re-evaluate at follow-up as appropriate. Diet Education Needs Assessment: RD is available for diet education as needed Nutrition Care Level: low Signed: Kimberlyn Johnson, RD, LD
--- NOTE | 2020-02-11 16:47 | NUR ---
progress note he patient is afebrile. He is less confused. He is not having atrial fibrillation. PHYSICAL EXAMINATION: VITAL SIGNS: Stable. HEENT: Shows no facial swelling or erythema. CARDIAC: Reveals regular rate and rhythm with normal S1, S2. LUNGS: Auscultation of lungs reveals crackles at the bases. There is no wheezing. ABDOMEN: Soft, nontender. There is no rebound or guarding. EXTREMITIES: Shows no leg edema or calf tenderness. There is no cyanosis or clubbing. SKIN: Shows no rashes. NEUROLOGICAL: Shows no focal abnormalities. IMPRESSION: 1. Viral pneumonia and COVID-19 infection. 2. Chronic atrial fibrillation. 3. Metabolic encephalopathy. 4. Hematuria and benign prostatic hypertrophy. 5. Hypertension. cont as ordered
--- NOTE | 2020-02-11 16:53 | Diagnostic Imaging Report ---
EXAM: CT Abdomen and Pelvis WITHOUT and WITH intravenous contrast - Hematuriaprotocol INDICATION: Hematuria COMPARISON: None. TECHNIQUE: Abdomen and pelvis were scanned utilizing a multidetector helical scanner from the lung base to the pubic symphysis before and after administration of IV contrast. Coronal and sagittal reformations were obtained. Hematuria protocol was used. Scan was performed prior to contrast administration and during portal venous phase. IV CONTRAST: 100 mL of Isovue 370 ORAL CONTRAST: Water COMPLICATIONS: None RADIATION DOSE: Total DLP: 1535 mGy*cm Dose modulation, iterative reconstruction, and/or weight based adjustment of the mA/kV was utilized to reduce the radiation dose to as low as reasonably achievable. FINDINGS: LOWER THORAX: Peripheral groundglass opacities at both lung bases compatible with known history of viral pneumonia. Coronary artery atherosclerotic calcifications. HEPATOBILIARY: No focal liver lesion. No biliary ductal dilation. Unremarkable gallbladder. SPLEEN: No splenomegaly. PANCREAS: No focal masses or ductal dilatation. ADRENALS: No adrenal nodules. KIDNEYS/URETERS: 2 mm left midpole nonobstructive renal calculus. Left upper pole exophytic simple renal cyst measures up to 6.9 cm. Right upper pole exophytic renal cyst measures up to 3.2 cm. No solid mass lesion. Postcontrast images demonstrate opacification of the entire course of both ureters without evidence of filling defect. PELVIC ORGANS/BLADDER: Severely enlarged prostate measures up to 7.4 x 5.7 x 7.6 cm (volume estimate 168cc) with coarse internal calcifications and nodular bulging into the posterior bladder. PERITONEUM / RETROPERITONEUM: No free air or fluid. LYMPH NODES: No lymphadenopathy. VESSELS: Moderate scattered atherosclerotic calcifications of the nonaneurysmal abdominal aorta and major branches. GI TRACT: No abnormal bowel thickening. No bowel obstruction. Normal appendix. BONES AND SOFT TISSUES: Age indeterminate loss of anterior vertebral body height at T12. No suspicious lytic or blastic lesions. Small ventral abdominal hernia containing fat. IMPRESSION: Severely enlarged prostate with nodular bulging into the bladder. 2mm left midpole nonobstructive renal calculus. Peripheral groundglass opacities at both lung bases compatible with known history of viral pneumonia. Signed by: Pako Milner MD on 02/11/2020 4:50 PM
--- NOTE | 2020-02-11 17:14 | Progress Note ---
DATE: SUBJECTIVE: The patient is afebrile. He is less confused. He is not having atrial fibrillation. PHYSICAL EXAMINATION: VITAL SIGNS: Stable. HEENT: Shows no facial swelling or erythema. CARDIAC: Reveals regular rate and rhythm with normal S1, S2. LUNGS: Auscultation of lungs reveals crackles at the bases. There is no wheezing. ABDOMEN: Soft, nontender. There is no rebound or guarding. EXTREMITIES: Shows no leg edema or calf tenderness. There is no cyanosis or clubbing. SKIN: Shows no rashes. NEUROLOGICAL: Shows no focal abnormalities. IMPRESSION: 1. Viral pneumonia and COVID-19 infection. 2. Chronic atrial fibrillation. 3. Metabolic encephalopathy. 4. Hematuria and benign prostatic hypertrophy. 5. Hypertension. PLAN: 1. Continue current antibiotics. 2. Wean off oxygen. 3. Continue current cardiac regimen. 4. Await further input from Urology. Ilan Alcocer MD [facility]/FRANK /[id number]
--- NOTE | 2020-02-11 18:00 | NUR ---
CLEAR YELLOW URINE NOTED ON 2 SETS OF SERIAL URINE.
--- NOTE | 2020-02-11 19:10 | NUR ---
BEDSIDE SHIFT REPORT GIVEN TO THE IN CLASS SPECIAL EDUCATION TEACHER RN. PT DENIED FURTHER NEEDS.
--- NOTE | 2020-02-11 19:49 | NUR ---
CLEAR YELLOW URINE NOTED ON 3rd SETS OF SERIAL URINE collected, no hematuria noted
--- OUTSIDE RECORDS SUMMARY | 2020-02-11 20:23 | XMS REPORT | Continuity of Care Document ---
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 Active 07/23/2011 [facility] Ablation Active Problem 08/17/2011 [facility] HTN - Hypertension Active Problem 08/17/2011 [facility] Medications Medication Details Route Status Patient Instructions Ordering Provider Order Date Source Norvasc 5 mg oral tablet 5 mg, 1 tab, PO, Daily, 30 tab, 2, 2, Substitution Allowed, TAB PO Active Ferr ando 08/15/2011 [facility] nt hydrALAZINE 20 mg, 1 mL, Route : IV, Drug form: INJ, ONCE, Start date: 08/15/11 12:40:00, Stop date: 08/15/11 12:40:00 IV No Longer Active Ferrando 08/15/2011 [facility] K-Dur 20 40 mEq, 2 tab, Route: PO, Drug form: ERTAB, ONCE, Start date: 08/15/11 10:30:00, Stop date: 08/15/11 10:30:00 PO No Longer Active Ferrando 08/15/2011 [facility] metoprolol 100 mg, 1 tab, Rout e: PO, Drug form: ERTAB, ONCE, Start date: 08/15/11 10:30:00, Stop date: 08/15/11 10:30:00 PO No Longer Active Ferrando 08/15/2011 [facility] hydrALAZINE 10 mg, 0.5 mL, Rou te: IV, Drug form: INJ, ONCE, Start date: 08/15/11 10:30:00, Stop date: 08/15/11 10:30:00 IV [facility] warfarin 2 mg oral tablet 2 mg , 1 tab, PO, Daily, 30 tab, 2, 2, Substitution Allowed PO Active Ferr ando 08/15/2011 [facility] nter Metoprolol Succinate ER 100 mg oral tabl et, extended release 1 tab, Route: PO, ONCE, Start date: 08/25 9:59:00, Stop date: 08/15/11 9:59:00 PO No Longer Active Ferrando 08/15/2011 [facility] hydrALAZINE 10 mg, Route: IV, ONCE, Start date: 08/15/11 9:58:00, Stop date: 08/15/11 9:58:00 IV No Longer Active [facility] 08/15/2011 [facility] potassium chloride 40 mEq, Rou te: PO, Drug form: ERTAB, ONCE, Start date: 08/15/11 9:57:00, Duration: 1 doses or times, Stop date: 08/15/11 9:57:00, For K = 3.5 - 3.9 mEq/LFor K = 3.5 - 3.9 mEq/L PO No Longer Active [facility] 08/15/2011 [facility] Metoprolol Succinate ER 200 mg oral tabl et, extended release 200 mg, 1 tab, PO, BID, 60 tab, 2, 2, Feliciano bstitution Allowed [facility] Macrobid 100 mg oral capsule 1 cap, PO, BID, 8 cap, Substitution Allowed PO Active Ferrando 08/15/2011 [facility] Protonix 40 mg oral enteric coated tablet 40 mg, 1 tab, PO, Before Dinner, 30 tab, Substitution Allowed, ECTAB PO Active [facility] 08/15/2011 [facility] Carafate 1 g oral tablet 1 gm, 1 tab, PO, QID, 28 tab, Substitution Allowed, TAB PO Active Ferrando 08/15/2011 [facility] nter acetaminophen-hydrocodone 325 mg-5 mg oral tablet 1 tab, PO, Q4H, PRN, 40 tab, Pain Score 1-5, Substitution Allowed, Maintenance, TAB PO Active Ferrando 08/15/2011 [facility] AMIODarone 200 mg oral tablet 200 mg, 1 tab, PO, BID, 60 tab, 2, 2, Substitution Allowed, TAB PO Active [facility] ando 08/15/2011 [facility] nter enalapril 20 mg oral tablet 40 mg, 2 tab, PO, Daily, 60 tab, Substitution Allowed, TAB PO Active Ferr ando 08/15/2011 [facility] nter hydrALAZINE 10 mg, 0.5 mL, Rou te: IV, Drug form: INJ, ONCE, Start date: 08/15/11 0:30:00, Stop date: 08/15/11 0:30:00 IV No Longer Active Kit[place] 08/15/2011 [facility] Colace 50 mg oral capsule 50 m g, 1 cap, Route: PO, Drug form: CAP, Bedtime, Start date: 08/14/11 21:00:00, Duration: 30 day, Stop date: 09/12/11 21:00:00 PO No Longer Active [facility] 08/15/2011 [facility] nter warfarin 5 mg, 1 tab, Route: P O, Drug form: TAB, Q5PM, Start date: 08/14/11 17:00:00, Duration: 1 doses or times, Stop date: 08/14/11 17:00:00 PO No Longer Active [facility] 08/14/2011 [facility] Lasix 40 mg oral tablet 40 mg, 1 tab, Route: PO, Drug form: TAB, Daily, Start date: 08/14/11 10:00:00, Duration: 30 day, Stop date: 09/13/11 9:00:00 PO No Longer Active [facility] 08/14/2011 [facility] nter ibuprofen 200 mg oral tablet 4 00 mg, 1 tab, Route: PO, Drug form: TAB, Q4H, PRN Pain, Start date: 08/14/11 9:43:00, Duration: 30 day, Stop date: 09/13/11 9:42:00 PO No Longer [facility] 08/14/2011 [facility] nter finasteride 5 mg, 1 tab, Route : PO, Drug form: TAB, Daily, Start date: 08/14/11 9:00:00, Duration: 30 day, Stop date: 09/12/11 9:00:00 PO No Longer Active Ferrando 08/14/2011 [facility] enalapril 40 mg, 2 tab, Route: PO, Drug form: TAB, Daily, Start date: 08/14/11 9:00:00, Duration: 30 day, Stop date: 09/12/11 9:00:00 PO No Longer Active Ferrando 08/14/2011 [facility] Macrobid 100 mg, Route: PO, Dr ug form: CAP, [id number], Start date: 08/14/11 9:00:00, Duration: 5 day, Stop date: 08/18/11 21:00:00 PO No Longer Active Ferrando [facility] Macrodantin 100 mg, 1 cap, Rou te: PO, Drug form: CAP, Q6H-02, Start date: 08/14/11 9:00:00, Duration: 5 day, Stop date: 08/19/11 3:00:00 PO No Longer Active Ferrando 08/14/2011 [facility] ciprofloxacin 500 mg, 1 tab, R oute: PO, Drug form: TAB, Q12H, Start date: 08/14/11 9:00:00, Duration: 5 day, Stop date: 08/18/11 21:00:00 PO No Longer Active Ferrando 08/14/2011 [facility] Saline Flush 0.9% 5 ml, Route: IVP, Drug Form: INJ, Q12H, Start date: 08/13/11 21:00:00, Duration: 30 day, Stop date: 09/12/11 9:00:00 IVP No Longer Active Ferrando 08/14/2011 [facility] metoprolol 100 mg, 1 tab, Rout e: PO, Drug form: TAB, BID, Start date: 08/13/11 17:00:00, Duration: 30 day, Stop date: 09/12/11 9:00:00 PO No Longer Active Ferrando 08/13/2011 [facility] warfarin 5 mg, 1 tab, Route: P O, Drug form: TAB, Q5PM, Start date: 08/13/11 17:00:00, Duration: 1 doses or times, Stop date: 08/13/11 17:00:00 PO No Longer Active Ferrando 08/13/2011 [facility] AMIODarone 200 mg, 1 tab, Rout e: PO, Drug form: TAB, BID, Start date: 08/13/11 17:00:00, Duration: 30 day, Stop date: 09/12/11 9:00:00 PO No Longer Active Ferrando 08/13/2011 [facility] Protonix 40 mg, 1 tab, Route: PO, Drug form: ECTAB, Before Dinner, Start date: 08/13/11 16:30:00, Duration: 30 day, Stop date: 09/11/11 16:30:00 PO No Longer Active Ferrando 08/13/2011 [facility] nter Carafate 1 gm, 1 tab, Route: P O, Drug form: TAB, QID, Start date: 08/13/11 13:00:00, Duration: 7 day, Stop date: 08/20/11 9:00:00 PO No Longer Active [facility] Restoril 30 mg, 2 cap, Route: PO, Drug form: CAP, Bedtime, PRN Sleep, Start date: 08/13/11 10:38:00, Duration: 30 day, Stop date: 09/12/11 10:37:00 PO No Longer Active Felipe 08/13/2011 [facility] nter Saline Flush 0.9% 5 ml, Route: IVP, Drug Form: INJ, PRN, PRN Line Flush, Start date: 08/13/11 9:59:00, Duration: 30 day, Stop date: 09/12/11 9:58:00 IVP No Longer Active [facility] 08[facility]2011 [facility] nter Zofran 4 mg, 2 mL, Route: IVP, Drug form: INJ, Q8H, PRN Nausea, Start date: 08/13/11 9:59:00, Duration: 30 day, Stop date: 09/12/11 9:58:00 IVP No Longer Active [facility] 08/13/2011 [facility] magnesium oxide 400 mg, 1 tab, Route: PO, Drug form: TAB, Daily, PRN Abnormal Lab Result, Start date: 08/13/11 9:59:00, Duration: 30 day, Stop date: 09/12/11 9:58:00 PO No Longer Active [facility] 08/13/2011 [facility] nt potassium chloride 20 mEq oral tablet, extended releas e 20 mEq, 1 tab, Route: PO, Drug form: ERTAB, Daily, PRN Abnormal Lab Result, Replacement for potassium less than 3.5, Start date: 08/13/11 9:59:00, Duration: 30 day, Stop date: 09/12/11 9:58:00 PO No Longer Active [facility] 08/13/2011 [facility] Ambien 10 mg, Route: PO, Bedti me, PRN Insomnia, Start date: 08/13/11 9:59:00, Duration: 30 day, Stop date: 09/12/11 9:58:00 PO No Longer Active [facility] morphine Sulfate 2 mg, 1 mL, R oute: IVP, Drug form: INJ, Q15Min, PRN Chest Pain, Start date: 08/13/11 9:59:00, Duration: 2 doses or times, Stop date: 08/13/11 18:00:00 IVP No Longer Active [facility] 08/13/2011 [facility] acetaminophen-hydrocodone 325 mg-5 mg oral tablet 1 tab, Route: PO, Drug Form: TAB, Q4H, PRN Pain Score 1-5, Start date: 08/13/11 9:59:00, Duration: 30 day, Stop date: 09/12/11 9:58:00 PO No Longer Active [facility] 08/13/2011 [facility] Saline Flush 0.9% 5 ml, Route: IVP, Drug Form: INJ, Q12H, Start date: 08/13/11 9:00:00, Duration: 30 day, Stop date: 09/11/11 21:00:00 IVP No Longer Active [facility] 08/13/2011 [facility] Saline Flush 0.9% 5 ml, Route: IVP, Drug Form: INJ, PRN, PRN Line Flush, Start date: 08/13/11 6:43:00, Duration: 30 day, Stop date: 09/12/11 6:42:00 IVP No Longer Active Matteo 08/13/2011 [facility] finasteride 5 mg oral tablet S ubstitution Allowed Active 08/13/2011 [facility] tamsulosin 0.4 mg oral capsule Substitution Allowed Active 08/13/2011 [facility] oxybutynin 5 mg oral tablet 5 mg, 1 tab, PO, TID, PRN, 30 tab, Other-See Comments, Substitution Allowed, TAB PO Active 08/13/2011 [facility] enalapril 60 mg, Substitution Allowed No Longer Active 08/13/2011 [facility] metoprolol 100 mg oral tablet 100 mg, PO, Substitution Allowed PO No Longer Active 08/13/2011 [facility] Allergies, Adverse Reactions, Alerts Substance Category Reaction Severity Reaction type Status Date Reported Comments Source penicillins drug allergy Allergy Act cristiano [facility] Immunizations No Data Provided for This Section Results Order Name Results Value Reference Range Date Interpretation Comments Source CHEMISTRY Magnesium Lvl 1.9 1.8 - 2.4 08/15/2011 Normal [facility] CHEMISTRY Glucose Lvl 105 08/15/2011 NA <sup>1</sup>Interpretive Data: Reference Ranges : 0 - 7 days : 41 - 90 mg/dL 7 days - 150 yrs : 70 - 99 mg/dL (fasting), based on the clinical recommendations of the [place] [employer]. [facility] CHEMISTRY Creatinine Lvl 0.8 0.5 - 1.4 08/15/2011 Normal [facility] CHEMISTRY Sodium Lvl 143 135 - 145 08/15/2011 Normal [facility] CHEMISTRY CO2 22 24 - 32 08/15/2011 LOW [facility] CHEMISTRY Calcium Lvl 7.6 8.5 - 10.5 08/15/2011 LOW [facility] CHEMISTRY BUN 25 7 - 22 08/15/2011 HI [facility] CHEMISTRY Chloride Lvl 109 95 - 109 08/15/2011 Normal [facility] CHEMISTRY Potassium Lvl 3.6 3.5 - 5.1 08/15/2011 [facility] CHEMISTRY AGAP 15.6 10.0 - 20.0 08/15/2011 Normal [facility] HEMATOLOGY Eosinophils # 0.0 0.0 - 0.5 08/15/2011 Normal [facility] HEMATOLOGY Basophils 0.2 0.0 - 1.0 08/15/2011 Normal [facility] HEMATOLOGY Segs-Bands # 6.4 1.5 - 8.1 08/15/2011 [facility] HEMATOLOGY Monocytes 11.6 2.0 - 12.0 08/15/2011 [facility] HEMATOLOGY Basophils # 0.0 0.0 - 0.2 08/15/2011 [facility] HEMATOLOGY Lymphocytes # 1.0 1.0 - 5.5 08/15/2011 [facility] HEMATOLOGY Monocytes # 1.0 0.0 - 0.8 08/15/2011 [facility] HEMATOLOGY Eosinophils 0.5 0.0 - 4.0 08/15/2011 [facility] HEMATOLOGY Lymphocytes 11.9 20.0 - 40.0 08/15/2011 [facility] HEMATOLOGY Segs 75.8 45.0 - 75.0 08/15/2011 [facility] HEMATOLOGY PT 18.1 12.0 - 14.7 08/15/2011 [facility] HEMATOLOGY INR 1.51 0.85 - 1.17 08/15/2011 [place] <sup>4</sup>Interpretive Data: RECOMMEND ED RANGES FOR PROTIME INR: 2.0- 3.0 for most medical and surgical thromboembolic states. 2.5-3.5 for artificial heart valves and recurrent embolism. INR SHOULD BE USED ONLY FOR PATIENTS ON STABLE ANTICOAGULANT THERAPY. [facility] HEMATOLOGY MPV 7.8 7.4 - 10.4 08/15/2011 [facility] HEMATOLOGY Platelet 119 133 - 450 08/15/2011 [facility] HEMATOLOGY RDW 15.3 11.5 - 14.5 08/15/2011 [facility] HEMATOLOGY MCH 32.7 27.0 - 31.0 08/15/2011 [facility] HEMATOLOGY MCV 96.2 80.0 - 94.0 08/15/2011 [facility] HEMATOLOGY MCHC 34.0 32.0 - 36.0 08/15/2011 [facility] HEMATOLOGY Hct 34.9 42.0 - 54.0 08/15/2011 [facility] HEMATOLOGY WBC 8.5 3.7 - 10.4 08/15/2011 [facility] HEMATOLOGY Hgb 11.9 14.0 - 18.0 08/15/2011 [facility] HEMATOLOGY RBC 3.63 4.70 - 6.10 08/15/2011 [facility] CHEMISTRY CO2 25 24 - 32 08/14/2011 Normal [facility] CHEMISTRY AGAP 15.0 10.0 - 20.0 08/14/2011 [facility] CHEMISTRY Calcium Lvl 7.3 8.5 - 10.5 08/14/2011 [facility] CHEMISTRY Creatinine Lvl 0.9 0.5 - 1.4 08/14/2011 [facility] CHEMISTRY Chloride Lvl 106 95 - 109 08/14/2011 [facility] CHEMISTRY BUN 26 7 - 22 08/14/2011 [facility] CHEMISTRY Glucose Lvl 137 08/14/2011 NA <sup>2</sup>Interpretive Data: Reference Ranges : 0 - 7 days : 41 - 90 mg/dL 7 days - 150 yrs : 70 - 99 mg/dL (fasting), based on the clinical recommendations of the [place] [employer]. [facility] CHEMISTRY Sodium Lvl 142 135 - 145 08/14/2011 [facility] CHEMISTRY Potassium Lvl 4.0 3.5 - 5.1 08/14/2011 [facility] CHEMISTRY Magnesium Lvl 1.6 1.8 - 2.4 08/14/2011 [facility] HEMATOLOGY Platelet 146 133 - 450 08/14/2011 [facility] HEMATOLOGY MPV 7.4 7.4 - 10.4 08/14/2011 [facility] HEMATOLOGY RDW 15.0 11.5 - 14.5 08/14/2011 [facility] HEMATOLOGY MCH 33.1 27.0 - 31.0 08/14/2011 [facility] HEMATOLOGY MCHC 34.9 32.0 - 36.0 08/14/2011 [facility] HEMATOLOGY MCV 94.7 80.0 - 94.0 08/14/2011 [facility] HEMATOLOGY Hct 34.4 42.0 - 54.0 08/14/2011 [facility] HEMATOLOGY RBC 3.63 4.70 - 6.10 08/14/2011 [facility] HEMATOLOGY Hgb 12.0 14.0 - 18.0 08/14/2011 [facility] HEMATOLOGY WBC 10.0 3.7 - 10.4 08/14/2011 [facility] HEMATOLOGY INR 1.46 0.85 - 1.17 08/14/2011 [place] <sup>5</sup>Interpretive Data: RECOMMEND ED RANGES FOR PROTIME INR: 2.0- 3.0 for most medical and surgical thromboembolic states. 2.5-3.5 for artificial heart valves and recurrent embolism. INR SHOULD BE USED ONLY FOR PATIENTS ON STABLE ANTICOAGULANT THERAPY. [facility] HEMATOLOGY PT 17.7 12.0 - 14.7 08/14/2011 [facility] HEMATOLOGY Basophils # 0.0 0.0 - 0.2 08/14/2011 Normal [facility] HEMATOLOGY Eosinophils # 0.0 0.0 - 0.5 08/14/2011 Normal [facility] HEMATOLOGY Monocytes # 1.2 0.0 - 0.8 08/14/2011 [facility] HEMATOLOGY Segs-Bands # 7.7 1.5 - 8.1 08/14/2011 Normal [facility] HEMATOLOGY Lymphocytes # 1.1 1.0 - 5.5 08/14/2011 Normal [facility] HEMATOLOGY Basophils 0.3 0.0 - 1.0 08/14/2011 Normal [facility] HEMATOLOGY Monocytes 11.8 2.0 - 12.0 08/14/2011 Normal [facility] HEMATOLOGY Lymphocytes 11.0 20.0 - 40.0 08/14/2011 LOW [facility] HEMATOLOGY Segs 76.9 45.0 - 75.0 08/14/2011 [facility] HEMATOLOGY Eosinophils 0.0 0.0 - 4.0 08/14/2011 Normal [facility] CHEMISTRY AGAP 13.5 10.0 - 20.0 08/13/2011 Normal [facility] CHEMISTRY CO2 27 24 - 32 08/13/2011 Normal [facility] CHEMISTRY Calcium Lvl 7.9 8.5 - 10.5 08/13/2011 LOW [facility] CHEMISTRY Sodium Lvl 142 135 - 145 08/13/2011 Normal [facility] CHEMISTRY Chloride Lvl 105 95 - 109 08/13/2011 Normal [facility] CHEMISTRY Creatinine Lvl 0.9 0.5 - 1.4 08/13/2011 Normal [facility] CHEMISTRY Potassium Lvl 3.5 3.5 - 5.1 08/13/2011 Normal [facility] CHEMISTRY BUN 17 7 - 22 08/13/2011 Normal [facility] CHEMISTRY Glucose Lvl 105 08/13/2011 NA <sup>3</sup>Interpretive Data: Reference Ranges : 0 - 7 days : 41 - 90 mg/dL 7 days - 150 yrs : 70 - 99 mg/dL (fasting), based on the clinical recommendations of the [place] [employer]. [facility] HEMATOLOGY Basophils # 0.0 0.0 - 0.2 08/13/2011 [facility] HEMATOLOGY Eosinophils # 0.1 0.0 - 0.5 08/13/2011 [facility] HEMATOLOGY Segs 59.4 45.0 - 75.0 08/13/2011 [facility] HEMATOLOGY Lymphocytes 25.9 20.0 - 40.0 08/13/2011 [facility] HEMATOLOGY Monocytes 11.4 2.0 - 12.0 08/13/2011 [facility] HEMATOLOGY Eosinophils 2.9 0.0 - 4.0 08/13/2011 [facility] HEMATOLOGY Basophils 0.4 0.0 - 1.0 08/13/2011 [facility] HEMATOLOGY Segs-Bands # 3.0 1.5 - 8.1 08/13/2011 [facility] HEMATOLOGY Monocytes # 0.6 0.0 - 0.8 08/13/2011 [facility] HEMATOLOGY Lymphocytes # 1.3 1.0 - 5.5 08/13/2011 [facility] HEMATOLOGY MCHC 33.8 32.0 - 36.0 08/13/2011 [facility] HEMATOLOGY WBC 5.1 3.7 - 10.4 08/13/2011 [facility] HEMATOLOGY Hct 41.1 42.0 - 54.0 08/13/2011 [facility] HEMATOLOGY Hgb 13.9 14.0 - 18.0 08/13/2011 [facility] HEMATOLOGY MCV 95.3 80.0 - 94.0 08/13/2011 [facility] HEMATOLOGY MCH 32.2 27.0 - 31.0 08/13/2011 [facility] HEMATOLOGY RDW 14.7 11.5 - 14.5 08/13/2011 [facility] HEMATOLOGY Platelet 131 133 - 450 08/13/2011 [facility] HEMATOLOGY MPV 7.7 7.4 - 10.4 08/13/2011 [facility] HEMATOLOGY RBC 4.31 4.70 - 6.10 08/13/2011 [facility] HEMATOLOGY PT 16.9 12.0 - 14.7 08/13/2011 [facility] HEMATOLOGY INR 1.38 0.85 - 1.17 08/13/2011 [place] <sup>6</sup>Interpretive Data: RECOMMEND ED RANGES FOR PROTIME INR: 2.0- 3.0 for most medical and surgical thromboembolic states. 2.5-3.5 for artificial heart valves and recurrent embolism. INR SHOULD BE USED ONLY FOR PATIENTS ON STABLE ANTICOAGULANT THERAPY. [facility] HEMATOLOGY PTT 33.2 22.9 - 35.8 08/13/2011 Normal <sup>7</sup>Interpretive Data: Heparin T herapeutic Range: 57 - 92 Seconds [facility] URINALYSIS UA Ketones Negat cristiano mg/dL *NA* (08/13/2011 06:48:00) Negati ve 08/13/2011 [facility] URINALYSIS UA Bili Negat cristiano *NA* (08/13/2011 06:48:00) Negati ve 08/13/2011 NA [facility] URINALYSIS UA Blood Negat cristiano (08/13/2011 06:48:00) Negati ve 08/13/2011 Normal [facility] URINALYSIS UA Nitrite Negat cristiano (08/13/2011 06:48:00) Negati ve 08/13/2011 Normal [facility] URINALYSIS UA Glucose Negat cristiano mg/dL *NA* (08/13/2011 06:48:00) Negati ve 08/13/2011 NA [facility] URINALYSIS UA RBC 3 0 - 2 08/13/2011 [facility] URINALYSIS UA Mucus Few / LPF *NA* (08/13/2011 06:48:00) None S een 08/13/2011 [facility] URINALYSIS UA Sq Epi None Seen 08/13/2011 [facility] URINALYSIS UA Leuk Est Moder ate *ABN* (08/13/2011 06:48:00) Negati ve 08/13/2011 ABN [facility] URINALYSIS UA WBC 31 0 - 5 08/13/2011 [facility] URINALYSIS UA Urobilinogen 0.1 - 1.0 08/13/2011 NA [facility] URINALYSIS UA Turbidity Clear (08/13/2011 06:48:00) Clear 08/13/2011 Normal [facility] URINALYSIS UA Spec Grav 1.014 <=1.030 08/13/2011 Normal [facility] URINALYSIS UA pH 7.0 5.0 - 8.0 08/13/2011 Normal [facility] URINALYSIS UA Protein 30 mg /dL *ABN* (08/13/2011 06:48:00) Negati ve 08/13/2011 ABN [facility] URINALYSIS UA Color Yello w *NA* (08/13/2011 06:48:00) Yellow 08/13/2011 NA [facility] BLOOD BANK RESULTS Antibody Scrn Negative (08/13/2011 06:15:00) 08/13/2011 Normal [facility] BLOOD BANK RESULTS ABO/Rh A POS 08/13/2011 Unknown [facility] Pathology Reports No Data Provided for This Section Diagnostic Reports No Data Provided for This Section Consultation Notes No Data Provided for This Section Discharge Summaries No Data Provided for This Section History and Physicals No Data Provided for This Section Vital Signs Vital Sign Value Date Comments Source Respitory Rate 18 08/15/2011 [facility] Systolic (mm Hg) 134 08/15/2011 [facility] Diastolic (mm Hg) 80 08/15/2011 [facility] Temperature Oral (F) 98.0 F 08/15/2011 [facility] Heart Rate 74 08/15/2011 [facility] Systolic (mm Hg) 170 08/15/2011 [facility] Diastolic (mm Hg) 94 08/15/2011 [facility] Heart Rate 72 08/15/2011 [facility] Respitory Rate 18 08/15/2011 [facility] Systolic (mm Hg) 149 08/15/2011 [facility] Temperature Oral (F) 98.0 F 08/15/2011 [facility] Respitory Rate 18 08/15/2011 [facility] Diastolic (mm Hg) 94 08/15/2011 [facility] [place] Heart Rate 72 08/15/2011 [facility] [place] Temperature Oral (F) 97.0 F 08/15/2011 [facility] [place] Height 165.10 cm 08/13/2011 [facility] [place] Weight 93.182 08/13/2011 [facility] [place] Weight 93.182 08/13/2011 [facility] [place] Height 175.26 cm 08/13/2011 [facility] [place] Encounters Location Location Details Encounter Type Encounter Number Reason For Visit Attending Provider ADM Date DC Date Status Source [facility] [place] OU [id number] CCL/ AFIB/ EPS PV I ABLATION/ *MARIANA*/ *TRANSEPTAL ICE*/ . ALLISON FELIPE 08/14/2011 08/15/2011 Active [facility] [place] Procedures No Data Provided for This Section [...]
--- OUTSIDE RECORDS SUMMARY | 2020-02-11 20:25 | XMS REPORT | Continuity of Care Document ---
Author Author [employer], DAVID Ervin [employer] Address Unknown Phone Unavailable Care Team Providers Care Manager Storage Name Role Phone [facility] [employer] Information Exchange Unavailable Un available Problems Problem Status Onset Date Classification Date Reported Comments Source CCL/ AFIB/ EPS PVI ABLATION/ *MARIANA*/ *TRANSEPTAL ICE*/ G Active 07/23/2011 [facility] CCL/ AFIB/ EPS PVI ABLATION/ *MARIANA*/ *TRANSEPTAL ICE*/ . Active 07/23/2011 [facility] Ablation Active Problem 08/17/2011 [facility] HTN - Hypertension Active Problem 08/17/2011 [facility] Medications Medication Details Route Status Patient Instructions Ordering Provider Order Date Source Norvasc 5 mg oral tablet 5 mg, 1 tab, PO, Daily, 30 tab, 2, 2, Substitution Allowed, TAB PO Active Ferr ando 08/15/2011 [facility] nt hydrALAZINE 20 mg, 1 mL, Route : IV, Drug form: INJ, ONCE, Start date: 08/15/11 12:40:00, Stop date: 08/15/11 12:40:00 IV No Longer Active Ferrando 08/15/2011 [facility] K-Dur 20 40 mEq, 2 tab, Route: PO, Drug form: ERTAB, ONCE, Start date: 08/15/11 10:30:00, Stop date: 08/15/11 10:30:00 PO No Longer Active Ferrando 08/15/2011 [facility] metoprolol 100 mg, 1 tab, Rout e: PO, Drug form: ERTAB, ONCE, Start date: 08/15/11 10:30:00, Stop date: 08/15/11 10:30:00 PO No Longer Active Ferrando 08/15/2011 [facility] hydrALAZINE 10 mg, 0.5 mL, Rou te: IV, Drug form: INJ, ONCE, Start date: 08/15/11 10:30:00, Stop date: 08/15/11 10:30:00 [facility] warfarin 2 mg oral tablet 2 mg , 1 tab, PO, Daily, 30 tab, 2, 2, Substitution Allowed PO Active Ferr ando 08/15/2011 [facility] nter Metoprolol Succinate ER 100 mg oral tabl et, extended release 1 tab, Route: PO, ONCE, Start date: 08/25 9:59:00, Stop date: 08/15/11 9:59:00 PO No Longer Active Ferrando 08/15/2011 [facility] hydrALAZINE 10 mg, Route: IV, ONCE, Start date: 08/15/11 9:58:00, Stop date: 08/15/11 9:58:00 IV [facility] Longer [facility]2011 [facility] potassium chloride 40 mEq, Rou te: PO, Drug form: ERTAB, ONCE, Start date: 08/15/11 9:57:00, Duration: 1 doses or times, Stop date: 08/15/11 9:57:00, For K = 3.5 - 3.9 mEq/LFor K = 3.5 - 3.9 mEq/L PO No Longer Active [facility]2011 [facility] Metoprolol Succinate ER 200 mg oral tabl et, extended release 200 mg, 1 tab, PO, BID, 60 tab, 2, 2, Feliciano bstitution Allowed [facility] Macrobid 100 mg oral capsule 1 cap, PO, BID, 8 cap, Substitution Allowed PO Active Ferrando 08/15/2011 [facility] Protonix 40 mg oral enteric coated tablet 40 mg, 1 tab, PO, Before Dinner, 30 tab, Substitution Allowed, ECTAB PO Active [facility] 08/15/2011 [facility] Carafate 1 g oral tablet 1 gm, 1 tab, PO, QID, 28 tab, Substitution Allowed, TAB PO Active Ferrando 08/15/2011 [facility] nter acetaminophen-hydrocodone 325 mg-5 mg oral tablet 1 tab, PO, Q4H, PRN, 40 tab, Pain Score 1-5, Substitution Allowed, Maintenance, TAB PO Active Ferrando 08/15/2011 [facility] AMIODarone 200 mg oral tablet 200 mg, 1 tab, PO, BID, 60 tab, 2, 2, Substitution Allowed, TAB PO Active [facility] 08/15/2011 [facility] nter enalapril 20 mg oral tablet 40 mg, 2 tab, PO, Daily, 60 tab, Substitution Allowed, TAB PO Active Ferr ando 08/15/2011 [facility] nter hydrALAZINE 10 mg, 0.5 mL, Rou te: IV, Drug form: INJ, ONCE, Start date: 08/15/11 0:30:00, Stop date: 08/15/11 0:30:00 IV No Longer Active [place] 08/15/2011 [facility] Colace 50 mg oral capsule 50 m g, 1 cap, Route: PO, Drug form: CAP, Bedtime, Start date: 08/14/11 21:00:00, Duration: 30 day, Stop date: 09/12/11 21:00:00 PO No Longer Active [facility] 08/15/2011 [facility] nter warfarin 5 mg, 1 tab, Route: P O, Drug form: TAB, Q5PM, Start date: 08/14/11 17:00:00, Duration: 1 doses or times, Stop date: 08/14/11 17:00:00 PO No [facility] 08[facility]14[facility]2011 [facility] Lasix 40 mg oral tablet 40 mg, 1 tab, Route: PO, Drug form: TAB, Daily, Start date: 08/14/11 10:00:00, Duration: 30 day, Stop date: 09/13/11 9:00:00 PO No Longer [facility] 08[facility]14/2011 [facility] nter ibuprofen 200 mg oral tablet 4 00 mg, 1 tab, Route: PO, Drug form: TAB, Q4H, PRN Pain, Start date: 08/14/11 9:43:00, Duration: 30 day, Stop date: 09/13/11 9:42:00 PO [facility] Long[facility] 08/14/2011 [facility] nter finasteride 5 mg, 1 tab, Route : PO, Drug form: TAB, Daily, Start date: 08/14/11 9:00:00, Duration: 30 day, Stop date: 09/12/11 9:00:00 PO No Longer Active Ferrando 08/14/2011 [facility] enalapril 40 mg, 2 tab, Route: PO, Drug form: TAB, Daily, Start date: 08/14/11 9:00:00, Duration: 30 day, Stop date: 09/12/11 9:00:00 PO No Longer Active Ferrando 08/14/2011 [facility] Macrobid 100 mg, Route: PO, Dr ug form: CAP, [id number], Start date: 08/14/11 9:00:00, Duration: 5 day, Stop date: 08/18/11 21:00:00 PO No Longer Active Ferrando [facility] Macrodantin 100 mg, 1 cap, Rou te: PO, Drug form: CAP, Q6H-02, Start date: 08/14/11 9:00:00, Duration: 5 day, Stop date: 08/19/11 3:00:00 PO No Longer Active Ferrando 08/14/2011 [facility] ciprofloxacin 500 mg, 1 tab, R oute: PO, Drug form: TAB, Q12H, Start date: 08/14/11 9:00:00, Duration: 5 day, Stop date: 08/18/11 21:00:00 PO No Longer Active Ferrando 08/14/2011 [facility] Saline Flush 0.9% 5 ml, Route: IVP, Drug Form: INJ, Q12H, Start date: 08/13/11 21:00:00, Duration: 30 day, Stop date: 09/12/11 9:00:00 IVP No Longer Active Ferrando 08/14/2011 [facility] metoprolol 100 mg, 1 tab, Rout e: PO, Drug form: TAB, BID, Start date: 08/13/11 17:00:00, Duration: 30 day, Stop date: 09/12/11 9:00:00 PO No Longer Active Ferrando 08/13/2011 [facility] warfarin 5 mg, 1 tab, Route: P O, Drug form: TAB, Q5PM, Start date: 08/13/11 17:00:00, Duration: 1 doses or times, Stop date: 08/13/11 17:00:00 PO No Longer Active Ferrando 08/13/2011 [facility] AMIODarone 200 mg, 1 tab, Rout e: PO, Drug form: TAB, BID, Start date: 08/13/11 17:00:00, Duration: 30 day, Stop date: 09/12/11 9:00:00 PO No Longer Active Ferrando 08/13/2011 [facility] Protonix 40 mg, 1 tab, Route: PO, Drug form: ECTAB, Before Dinner, Start date: 08/13/11 16:30:00, Duration: 30 day, Stop date: 09/11/11 16:30:00 PO No Longer Active Ferrando 08/13/2011 [facility] nter Carafate 1 gm, 1 tab, Route: P O, Drug form: TAB, QID, Start date: 08/13/11 13:00:00, Duration: 7 day, Stop date: 08/20/11 9:00:00 PO [facility] Restoril 30 mg, 2 cap, Route: PO, Drug form: CAP, Bedtime, PRN Sleep, Start date: 08/13/11 10:38:00, Duration: 30 day, Stop date: 09/12/11 10:37:00 PO No Longer Active Felipe 08/13/2011 [facility] nter Saline Flush 0.9% 5 ml, Route: IVP, Drug Form: INJ, PRN, PRN Line Flush, Start date: 08/13/11 9:59:00, Duration: 30 day, Stop date: 09/12/11 9:58:00 IVP [facility] Long[facility] 08[facility]2011 [facility] nter Zofran 4 mg, 2 mL, Route: IVP, Drug form: INJ, Q8H, PRN Nausea, Start date: 08/13/11 9:59:00, Duration: 30 day, Stop date: 09/12/11 9:58:00 IVP [facility] Longer [facility] 08/13/2011 [facility] magnesium oxide 400 mg, 1 tab, Route: PO, Drug form: TAB, Daily, PRN Abnormal Lab Result, Start date: 08/13/11 9:59:00, Duration: 30 day, Stop date: 09/12/11 9:58:00 PO No Longer Active [facility] 08/13/2011 [facility] nt potassium chloride 20 mEq oral tablet, extended releas e 20 mEq, 1 tab, Route: PO, Drug form: ERTAB, Daily, PRN Abnormal Lab Result, Replacement for potassium less than 3.5, Start date: 08/13/11 9:59:00, Duration: 30 day, Stop date: 09/12/11 9:58:00 PO No Longer Active [facility] 08/13/2011 [facility] Ambien 10 mg, Route: PO, Bedti me, PRN Insomnia, Start date: 08/13/11 9:59:00, Duration: 30 day, Stop date: 09/12/11 9:58:00 PO [facility] morphine Sulfate 2 mg, 1 mL, R oute: IVP, Drug form: INJ, Q15Min, PRN Chest Pain, Start date: 08/13/11 9:59:00, Duration: 2 doses or times, Stop date: 08/13/11 18:00:00 IVP No Longer Active [facility] 08/13/2011 [facility] acetaminophen-hydrocodone 325 mg-5 mg oral tablet 1 tab, Route: PO, Drug Form: TAB, Q4H, PRN Pain Score 1-5, Start date: 08/13/11 9:59:00, Duration: 30 day, Stop date: 09/12/11 9:58:00 PO No Longer Active [facility] 08/13/2011 [facility] Saline Flush 0.9% 5 ml, Route: IVP, Drug Form: INJ, Q12H, Start date: 08/13/11 9:00:00, Duration: 30 day, Stop date: 09/11/11 21:00:00 IVP No Longer Active [facility] 08/13/2011 [facility] Saline Flush 0.9% 5 ml, Route: IVP, Drug Form: INJ, PRN, PRN Line Flush, Start date: 08/13/11 6:43:00, Duration: 30 day, Stop date: 09/12/11 6:42:00 IVP No Longer Active Matteo 08/13/2011 [facility] finasteride 5 mg oral tablet S ubstitution Allowed Active 08/13/2011 [facility] tamsulosin 0.4 mg oral capsule Substitution Allowed Active 08/13/2011 [facility] oxybutynin 5 mg oral tablet 5 mg, 1 tab, PO, TID, PRN, 30 tab, Other-See Comments, Substitution Allowed, TAB PO Active 08/13/2011 [facility] enalapril 60 mg, Substitution Allowed No Longer Active 08/13/2011 [facility] metoprolol 100 mg oral tablet 100 mg, PO, Substitution Allowed PO No Longer Active 08/13/2011 [facility] Allergies, Adverse Reactions, Alerts Substance Category Reaction Severity Reaction type Status Date Reported Comments Source penicillins drug allergy Allergy Act cristiano [facility] Immunizations No Data Provided for This Section Results Order Name Results Value Reference Range Date Interpretation Comments Source CHEMISTRY Magnesium Lvl 1.9 1.8 - 2.4 08/15/2011 Normal [facility] CHEMISTRY Glucose Lvl 105 08/15/2011 NA <sup>1</sup>Interpretive Data: Reference Ranges : 0 - 7 days : 41 - 90 mg/dL 7 days - 150 yrs : 70 - 99 mg/dL (fasting), based on the clinical recommendations of the [place] [employer]. [facility] CHEMISTRY Creatinine Lvl 0.8 0.5 - 1.4 08/15/2011 Normal [facility] CHEMISTRY Sodium Lvl 143 135 - 145 08/15/2011 Normal [facility] CHEMISTRY CO2 22 24 - 32 08/15/2011 LOW [facility] CHEMISTRY Calcium Lvl 7.6 8.5 - 10.5 08/15/2011 LOW [facility] CHEMISTRY BUN 25 7 - 22 08/15/2011 HI [facility] CHEMISTRY Chloride Lvl 109 95 - 109 08/15/2011 Normal [facility] CHEMISTRY Potassium Lvl 3.6 3.5 - 5.1 08/15/2011 [facility] CHEMISTRY AGAP 15.6 10.0 - 20.0 08/15/2011 Normal [facility] HEMATOLOGY Eosinophils # 0.0 0.0 - 0.5 08/15/2011 Normal [facility] HEMATOLOGY Basophils 0.2 0.0 - 1.0 08/15/2011 Normal [facility] HEMATOLOGY Segs-Bands # 6.4 1.5 - 8.1 08/15/2011 [facility] HEMATOLOGY Monocytes 11.6 2.0 - 12.0 08/15/2011 [facility] HEMATOLOGY Basophils # 0.0 0.0 - 0.2 08/15/2011 [facility] HEMATOLOGY Lymphocytes # 1.0 1.0 - 5.5 08/15/2011 [facility] HEMATOLOGY Monocytes # 1.0 0.0 - 0.8 08/15/2011 [facility] HEMATOLOGY Eosinophils 0.5 0.0 - 4.0 08/15/2011 [facility] HEMATOLOGY Lymphocytes 11.9 20.0 - 40.0 08/15/2011 [facility] HEMATOLOGY Segs 75.8 45.0 - 75.0 08/15/2011 [facility] HEMATOLOGY PT 18.1 12.0 - 14.7 08/15/2011 [facility] HEMATOLOGY INR 1.51 0.85 - 1.17 08/15/2011 [place] <sup>4</sup>Interpretive Data: RECOMMEND ED RANGES FOR PROTIME INR: 2.0- 3.0 for most medical and surgical thromboembolic states. 2.5-3.5 for artificial heart valves and recurrent embolism. INR SHOULD BE USED ONLY FOR PATIENTS ON STABLE ANTICOAGULANT THERAPY. [facility] HEMATOLOGY MPV 7.8 7.4 - 10.4 08/15/2011 [facility] HEMATOLOGY Platelet 119 133 - 450 08/15/2011 [facility] HEMATOLOGY RDW 15.3 11.5 - 14.5 08/15/2011 [facility] HEMATOLOGY MCH 32.7 27.0 - 31.0 08/15/2011 [facility] HEMATOLOGY MCV 96.2 80.0 - 94.0 08/15/2011 [facility] HEMATOLOGY MCHC 34.0 32.0 - 36.0 08/15/2011 [facility] HEMATOLOGY Hct 34.9 42.0 - 54.0 08/15/2011 [facility] HEMATOLOGY WBC 8.5 3.7 - 10.4 08/15/2011 [facility] HEMATOLOGY Hgb 11.9 14.0 - 18.0 08/15/2011 [facility] HEMATOLOGY RBC 3.63 4.70 - 6.10 08/15/2011 [facility] CHEMISTRY CO2 25 24 - 32 08/14/2011 Normal [facility] CHEMISTRY AGAP 15.0 10.0 - 20.0 08/14/2011 [facility] CHEMISTRY Calcium Lvl 7.3 8.5 - 10.5 08/14/2011 [facility] CHEMISTRY Creatinine Lvl 0.9 0.5 - 1.4 08/14/2011 [facility] CHEMISTRY Chloride Lvl 106 95 - 109 08/14/2011 [facility] CHEMISTRY BUN 26 7 - 22 08/14/2011 [facility] CHEMISTRY Glucose Lvl 137 08/14/2011 NA <sup>2</sup>Interpretive Data: Reference Ranges : 0 - 7 days : 41 - 90 mg/dL 7 days - 150 yrs : 70 - 99 mg/dL (fasting), based on the clinical recommendations of the [place] [employer]. [facility] CHEMISTRY Sodium Lvl 142 135 - 145 08/14/2011 [facility] CHEMISTRY Potassium Lvl 4.0 3.5 - 5.1 08/14/2011 [facility] CHEMISTRY Magnesium Lvl 1.6 1.8 - 2.4 08/14/2011 [facility] HEMATOLOGY Platelet 146 133 - 450 08/14/2011 [facility] HEMATOLOGY MPV 7.4 7.4 - 10.4 08/14/2011 [facility] HEMATOLOGY RDW 15.0 11.5 - 14.5 08/14/2011 [facility] HEMATOLOGY MCH 33.1 27.0 - 31.0 08/14/2011 [facility] HEMATOLOGY MCHC 34.9 32.0 - 36.0 08/14/2011 [facility] HEMATOLOGY MCV 94.7 80.0 - 94.0 08/14/2011 [facility] HEMATOLOGY Hct 34.4 42.0 - 54.0 08/14/2011 [facility] HEMATOLOGY RBC 3.63 4.70 - 6.10 08/14/2011 [facility] HEMATOLOGY Hgb 12.0 14.0 - 18.0 08/14/2011 [facility] HEMATOLOGY WBC 10.0 3.7 - 10.4 08/14/2011 [facility] HEMATOLOGY INR 1.46 0.85 - 1.17 08/14/2011 [place] <sup>5</sup>Interpretive Data: RECOMMEND ED RANGES FOR PROTIME INR: 2.0- 3.0 for most medical and surgical thromboembolic states. 2.5-3.5 for artificial heart valves and recurrent embolism. INR SHOULD BE USED ONLY FOR PATIENTS ON STABLE ANTICOAGULANT THERAPY. [facility] HEMATOLOGY PT 17.7 12.0 - 14.7 08/14/2011 [facility] HEMATOLOGY Basophils # 0.0 0.0 - 0.2 08/14/2011 Normal [facility] HEMATOLOGY Eosinophils # 0.0 0.0 - 0.5 08/14/2011 Normal [facility] HEMATOLOGY Monocytes # 1.2 0.0 - 0.8 08/14/2011 [facility] HEMATOLOGY Segs-Bands # 7.7 1.5 - 8.1 08/14/2011 Normal [facility] HEMATOLOGY Lymphocytes # 1.1 1.0 - 5.5 08/14/2011 Normal [facility] HEMATOLOGY Basophils 0.3 0.0 - 1.0 08/14/2011 Normal [facility] HEMATOLOGY Monocytes 11.8 2.0 - 12.0 08/14/2011 Normal [facility] HEMATOLOGY Lymphocytes 11.0 20.0 - 40.0 08/14/2011 LOW [facility] HEMATOLOGY Segs 76.9 45.0 - 75.0 08/14/2011 [facility] HEMATOLOGY Eosinophils 0.0 0.0 - 4.0 08/14/2011 Normal [facility] CHEMISTRY AGAP 13.5 10.0 - 20.0 08/13/2011 Normal [facility] CHEMISTRY CO2 27 24 - 32 08/13/2011 Normal [facility] CHEMISTRY Calcium Lvl 7.9 8.5 - 10.5 08/13/2011 LOW [facility] CHEMISTRY Sodium Lvl 142 135 - 145 08/13/2011 Normal [facility] CHEMISTRY Chloride Lvl 105 95 - 109 08/13/2011 Normal [facility] CHEMISTRY Creatinine Lvl 0.9 0.5 - 1.4 08/13/2011 Normal [facility] CHEMISTRY Potassium Lvl 3.5 3.5 - 5.1 08/13/2011 Normal [facility] CHEMISTRY BUN 17 7 - 22 08/13/2011 Normal [facility] CHEMISTRY Glucose Lvl 105 08/13/2011 NA <sup>3</sup>Interpretive Data: Reference Ranges : 0 - 7 days : 41 - 90 mg/dL 7 days - 150 yrs : 70 - 99 mg/dL (fasting), based on the clinical recommendations of the [place] [employer]. [facility] HEMATOLOGY Basophils # 0.0 0.0 - 0.2 08/13/2011 [facility] HEMATOLOGY Eosinophils # 0.1 0.0 - 0.5 08/13/2011 [facility] HEMATOLOGY Segs 59.4 45.0 - 75.0 08/13/2011 [facility] HEMATOLOGY Lymphocytes 25.9 20.0 - 40.0 08/13/2011 [facility] HEMATOLOGY Monocytes 11.4 2.0 - 12.0 08/13/2011 [facility] HEMATOLOGY Eosinophils 2.9 0.0 - 4.0 08/13/2011 [facility] HEMATOLOGY Basophils 0.4 0.0 - 1.0 08/13/2011 [facility] HEMATOLOGY Segs-Bands # 3.0 1.5 - 8.1 08/13/2011 [facility] HEMATOLOGY Monocytes # 0.6 0.0 - 0.8 08/13/2011 [facility] HEMATOLOGY Lymphocytes # 1.3 1.0 - 5.5 08/13/2011 [facility] HEMATOLOGY MCHC 33.8 32.0 - 36.0 08/13/2011 [facility] HEMATOLOGY WBC 5.1 3.7 - 10.4 08/13/2011 [facility] HEMATOLOGY Hct 41.1 42.0 - 54.0 08/13/2011 [facility] HEMATOLOGY Hgb 13.9 14.0 - 18.0 08/13/2011 [facility] HEMATOLOGY MCV 95.3 80.0 - 94.0 08/13/2011 [facility] HEMATOLOGY MCH 32.2 27.0 - 31.0 08/13/2011 [facility] HEMATOLOGY RDW 14.7 11.5 - 14.5 08/13/2011 [facility] HEMATOLOGY Platelet 131 133 - 450 08/13/2011 [facility] HEMATOLOGY MPV 7.7 7.4 - 10.4 08/13/2011 [facility] HEMATOLOGY RBC 4.31 4.70 - 6.10 08/13/2011 [facility] HEMATOLOGY PT 16.9 12.0 - 14.7 08/13/2011 [facility] HEMATOLOGY INR 1.38 0.85 - 1.17 08/13/2011 [place] <sup>6</sup>Interpretive Data: RECOMMEND ED RANGES FOR PROTIME INR: 2.0- 3.0 for most medical and surgical thromboembolic states. 2.5-3.5 for artificial heart valves and recurrent embolism. INR SHOULD BE USED ONLY FOR PATIENTS ON STABLE ANTICOAGULANT THERAPY. [facility] HEMATOLOGY PTT 33.2 22.9 - 35.8 08/13/2011 Normal <sup>7</sup>Interpretive Data: Heparin T herapeutic Range: 57 - 92 Seconds [facility] URINALYSIS UA Ketones Negat cristiano mg/dL *NA* (08/13/2011 06:48:00) Negati ve 08/13/2011 [facility] URINALYSIS UA Bili Negat cristiano *NA* (08/13/2011 06:48:00) Negati ve 08/13/2011 NA [facility] URINALYSIS UA Blood Negat cristiano (08/13/2011 06:48:00) Negati ve 08/13/2011 Normal [facility] URINALYSIS UA Nitrite Negat cristiano (08/13/2011 06:48:00) Negati ve 08/13/2011 Normal [facility] URINALYSIS UA Glucose Negat cristiano mg/dL *NA* (08/13/2011 06:48:00) Negati ve 08/13/2011 NA [facility] URINALYSIS UA RBC 3 0 - 2 08/13/2011 [facility] URINALYSIS UA Mucus Few / LPF *NA* (08/13/2011 06:48:00) None S een 08/13/2011 [facility] URINALYSIS UA Sq Epi None Seen 08/13/2011 [facility] URINALYSIS UA Leuk Est Moder ate *ABN* (08/13/2011 06:48:00) Negati ve 08/13/2011 ABN [facility] URINALYSIS UA WBC 31 0 - 5 08/13/2011 [facility] URINALYSIS UA Urobilinogen 0.1 - 1.0 08/13/2011 NA [facility] URINALYSIS UA Turbidity Clear (08/13/2011 06:48:00) Clear 08/13/2011 Normal [facility] URINALYSIS UA Spec Grav 1.014 <=1.030 08/13/2011 Normal [facility] URINALYSIS UA pH 7.0 5.0 - 8.0 08/13/2011 Normal [facility] URINALYSIS UA Protein 30 mg /dL *ABN* (08/13/2011 06:48:00) Negati ve 08/13/2011 ABN [facility] URINALYSIS UA Color Yello w *NA* (08/13/2011 06:48:00) Yellow 08/13/2011 NA [facility] BLOOD BANK RESULTS Antibody Scrn Negative (08/13/2011 06:15:00) 08/13/2011 Normal [facility] BLOOD BANK RESULTS ABO/Rh A POS 08/13/2011 Unknown [facility] Pathology Reports No Data Provided for This Section Diagnostic Reports No Data Provided for This Section Consultation Notes No Data Provided for This Section Discharge Summaries No Data Provided for This Section History and Physicals No Data Provided for This Section Vital Signs Vital Sign Value Date Comments Source Respitory Rate 18 08/15/2011 [facility] Systolic (mm Hg) 134 08/15/2011 [facility] Diastolic (mm Hg) 80 08/15/2011 [facility] Temperature Oral (F) 98.0 F 08/15/2011 [facility] Heart Rate 74 08/15/2011 [facility] Systolic (mm Hg) 170 08/15/2011 [facility] Diastolic (mm Hg) 94 08/15/2011 [facility] Heart Rate 72 08/15/2011 [facility] Respitory Rate 18 08/15/2011 [facility] Systolic (mm Hg) 149 08/15/2011 [facility] Temperature Oral (F) 98.0 F 08/15/2011 [facility] Respitory Rate 18 08/15/2011 [facility] Diastolic (mm Hg) 94 08/15/2011 [facility] Heart Rate 72 08/15/2011 [facility] Temperature Oral (F) 97.0 F 08/15/2011 [facility] Height 165.10 cm 08/13/2011 [facility] Weight 93.182 08/13/2011 [facility] Weight 93.182 08/13/2011 [facility] Height 175.26 cm 08/13/2011 [facility] Encounters Location Location Details Encounter Type Encounter Number Reason For Visit Attending Provider ADM Date DC Date Status Source [facility] OU [id number] CCL/ AFIB/ EPS PV I ABLATION/ *MARIANA*/ *TRANSEPTAL ICE*/ . ALLISON FELIPE 08/14/2011 08/15/2011 Active [facility] Procedures No Data Provided for This Section [...]
[2020-02-11] MEDS: DEXAMETHASONE SOD PHOS 10 MG/1 ML VIAL IV SCH (22:00)
[2020-02-11] MEDS: CEFTRIAXONE SOD 1 GRAM/0.9% SOD CHL 50ML BAG IV SCH (22:00)
[2020-02-11] MEDS: AZITHROMYCIN 500MG/SOD CHL 0.9% 250ML BAG IV SCH (22:00)
[2020-02-12] VITALS (10 sets, daily range): BP systolic 116–154; BP diastolic 70–103
[2020-02-12] MEDS: DEXAMETHASONE SOD PHOS 10 MG/1 ML VIAL IV SCH (05:05)
[2020-02-12] MEDS: METOPROLOL TARTRATE 25 MG TAB PO SCH ×3 (05:11→21:10)
--- NOTE | 2020-02-12 07:00 | NUR ---
BEDSIDE SHIFT REPORT RECEIVED FROM THE BAR HOST RN. EDUCATED PT ABOUT FALL PRECAUTIONS. PT VERBALIZED UNDERSTANDING. BED IS LOW AND LOCKED. SIDE RAILS X2. CALL LIGHT WITH IN EASY REACH. BED ALARM IS ON. PT DENIES NEEDS AT THIS TIME.
--- NOTE | 2020-02-12 07:01 | NUR ---
IM- progress note O/N see below ROS; no f/c/s/N/V/D/PHAN/skin rash/confusion/leg pain/vision changes/mood changes v/s; revd PE tired appearing anicteric ns1s2 REDUCED BS; COUGH WITH SPEECH AND INSPIRATION soft nt nd no e/t skin dry n. affect a&ox3; elizondo labs/meds revd A/P; Multifocal PNA- ceftriaxone/azithromycin/decadron; COVID testing; Ayaz- improving; hold nephrotoxic meds Severe sepsis- with renal dys; abx as above; fluids if needed UTI- iv abx Chronic A.fib- BB; AC Physical deconditioning- PT Prop; pepcid on AC Dispo: f/u 02-10 cont supportive care; 8 COVID19 positive infection; PNA due to COVID19; BPH with large nodular prostate; consider TURP in future; Cultures negative; renal fn improving; d/c planning; PT; ambulate; home O2 eval; Hematuria; check labs; Carlton Boone MD, PhD.
[2020-02-12] MEDS: PANTOPRAZOLE SOD 40 MG TABEC PO SCH (08:57)
[2020-02-12] MEDS: FINASTERIDE 5 MG TAB PO SCH (08:57)
[2020-02-12] MEDS: AMIODARONE HCL 200 MG TAB PO SCH (08:57)
[2020-02-12] MEDS: ALPRAZOLAM 0.25 MG TAB PO PRN ×2 (09:21→21:12)
[2020-02-12 12:39] LABS: BASOPHILS % 0.1 % (0.0-1.0); HEMATOCRIT 36.1 % (38.2-49.6); HEMOGLOBIN 11.4 g/dL (14.0-18.0); LYMPHOCYTES # (AUTO) 0.5 (1.0-3.2); LYMPHOCYTES % 4.3 % (18.0-39.1); MEAN CORPUSCULAR HEMOGLOBIN 26.6 pg (28-32); MEAN CORPUSCULAR HGB CONC 31.6 g/dL (31-35); MEAN CORPUSCULAR VOLUME 84.1 fL (81-99); MONOCYTES # (AUTO) 0.7 (0.2-0.8); MONOCYTES % 5.9 % (4.4-11.3); NEUTROPHILS # (AUTO) 9.8 (2.1-6.9); NEUTROPHILS % 88.4 % (38.7-80.0); PLATELET COUNT 293 x10e3/uL (140-360); RED BLOOD COUNT 4.29 x10e6/uL (4.3-5.7); RED CELL DISTRIBUTION WIDTH 15.2 % (11.7-14.4)
[2020-02-12 13:01] LABS: ANION GAP 13.7 mmol/L (8-16); BLOOD UREA NITROGEN 23 mg/dL (7-26); BUN/CREATININE RATIO 26 (6-25); CALCIUM 8.2 mg/dL (8.4-10.2); CARBON DIOXIDE 22 mmol/L (22-29); CHLORIDE 106 mmol/L (98-107); CREATININE, SERUM 0.87 mg/dL (0.72-1.25); EST GLOMERULAR FILTRATION RATE > 60 ML/MIN (60-); GLUCOSE 122 mg/dL (74-118); POTASSIUM 3.7 mmol/L (3.5-5.1); SODIUM 138 mmol/L (136-145)
[2020-02-12] MEDS ORDERED: GUAIFENESIN/DEXTROMETHORPHAN LIQD 5 ML UDC PO PRN (14:00)
--- NOTE | 2020-02-12 15:00 | NUR ---
PAGED DR. SUAREZ AND REPORTED PT HR 115.
[2020-02-12] MEDS: BENZONATATE 100 MG CAP PO SCH ×2 (16:00→20:58)
[2020-02-12] MEDS: SENNA-S TABLET PO SCH (16:18)
[2020-02-12] MEDS: DOCUSATE SODIUM 100 MG CAP PO SCH (16:18)
--- NOTE | 2020-02-12 16:30 | NUR ---
SATURATION TESTING FOR OXYGEN COMPLETED. PT DESATURATE TO 84 % WHILE WALKING. REPORTED THE RESULT TO DR. SUAREZ.
--- NOTE | 2020-02-12 16:45 | NUR ---
PT IS RESTING ON BED. 2 L NC ON. PT IS AAOX4. NO DISTRESS NOTED.
--- NOTE | 2020-02-12 18:00 | NUR ---
PT HR ON 130'S WHILE WALKING AND O2 SAT ON 84 %. PAGED DR. SUAREZ AND REPORTED THE SAME.
--- NOTE | 2020-02-12 18:30 | Progress Note ---
DATE: SUBJECTIVE: Mr. Pham is doing well. There is no new complaint. REVIEW OF SYSTEMS: HEENT: Negative. PULMONARY: Negative. CARDIAC: Negative. PHYSICAL EXAMINATION: GENERAL: He is currently alert, oriented. VITAL SIGNS: Stable, afebrile. HEENT: He is not icteric. NECK: Supple. CHEST: Clear bilateral. HEART: S1, S2. No murmur. ABDOMEN: Soft. IMPRESSION: Hematuria. The plan for him to have Urology evaluation, which could be wait for another week or two, discussed with Urology. Coronavirus disease-19, clinically doing better, oxygenation is improving. He is not hypoxemic if he is at rest. If he walks he will get a little bit hypoxemia. Stable from Infectious Disease point of view. Discharge planning to be discharged home with no antibiotic. oxygen since he does desaturate when . We will follow. MD FANNY Phillips/MODL /[id number]
--- NOTE | 2020-02-12 19:00 | NUR ---
BEDSIDE SHIFT REPORT GIVEN TO THE SAXOPHONE TEACHER RN. PT DENIED FURTHER NEEDS.
--- NOTE | 2020-02-12 19:02 | NUR ---
Received the patient in report.stable condition.
[2020-02-12] MEDS: AZITHROMYCIN 500MG/SOD CHL 0.9% 250ML BAG IV SCH (21:10)
[2020-02-12] MEDS ORDERED: DEXAMETHASONE SOD PHOS INJ 4 MG/ML VIAL IV SCH (21:30)
[2020-02-12] MEDS: CEFTRIAXONE SOD 1 GRAM/0.9% SOD CHL 50ML BAG IV SCH (22:00)
--- NOTE | 2020-02-13 01:26 | NUR ---
COLLECTING URINE SERIES.NO BLOOD NOTED. VISITED THE PATIENT.
[2020-02-13 04:00] VITALS: BP 140/95
--- NOTE | 2020-02-13 06:53 | NUR ---
Report given to oncoming Rn.stable condition.
[2020-02-13 08:00] VITALS: BP 142/107
[2020-02-13] MEDS: METOPROLOL TARTRATE 25 MG TAB PO SCH (08:22)
[2020-02-13] MEDS: PANTOPRAZOLE SOD 40 MG TABEC PO SCH (08:22)
[2020-02-13] MEDS: SENNA-S TABLET PO SCH (08:22)
[2020-02-13] MEDS: FINASTERIDE 5 MG TAB PO SCH (08:22)
[2020-02-13] MEDS: DOCUSATE SODIUM 100 MG CAP PO SCH (08:22)
[2020-02-13] MEDS: BENZONATATE 100 MG CAP PO SCH (08:22)
[2020-02-13] MEDS: AMIODARONE HCL 200 MG TAB PO SCH (08:22)
[2020-02-13 08:44] VITALS: BP 142/107
--- NOTE | 2020-02-13 11:08 | NUR ---
CALL RECEIVED FROM KELLY PINON REGARDING HOME O2. STATES SHE WILL FAX HOME O2 EVAL CALL TO THE PT TO DISCUSS CHOICE FOR HOME O2; [facility] AND [facility]. PT STATES [facility] IS OK. CHOICE LETTER WAS SIGNED AND COPY TO PT AND COPY TO THE CHART. REFERRAL FAXED TO [facility] @ [employer]: [phone] / FAX: [phone]. IMM LETTER EXPLAINED TO PT. PT VERBALIZED UNDERSTANDING. IMM LETTER SIGNED. COPY TO PT AND COPY TO CHART.
--- NOTE | 2020-02-13 11:11 | NUR ---
DME DISCHARGE NOTE NAME OF DME COMPANY: [facility] TELEPHONE/FAX NUMBER OF COMPANY: [facility]: [phone] / FAX: [phone] SERVICES TO RECEIVE: HOME OXYGEN ANTICIPATED DATE SERVICES WILL BEGIN: Please call the company above when you no longer need their services.
[2020-02-13 12:56] VITALS: BP 121/106
--- NOTE | 2020-02-13 13:29 | NUR ---
INFECTIOUS DISEASE PROGRESS NOTE DR CHUNG REVIEW OF SYSTEMS: HEENT: Negative. PULMONARY: Negative. CARDIAC: Negative. PHYSICAL EXAMINATION: GENERAL: He is currently alert, oriented. VITAL SIGNS: Stable, afebrile. HEENT: He is not icteric. NECK: Supple. CHEST: Clear bilateral. HEART: S1, S2. No murmur. ABDOMEN: Soft. LABS: REVIEWED RADIOLOGY: REVIEWED IMPRESSION & PLAN: Hematuria. -The plan for him to have Urology evaluation, which could be wait for another week or two, discussed with Urology. Coronavirus disease-19, clinically doing better, oxygenation is improving. He is not hypoxemic if he is at Rest. If he walks he will get a little bit hypoxemia. Stable from Infectious Disease point of view. Discharge planning to be discharged home with no antibiotic PT SEEN AND EVALUATED BY DR CHUNG
--- NOTE | 2020-02-13 16:09 | NUR ---
Patient received discharge order from after receiving home o2 via case management. Patient was given discharge instructions, education on home oxygen use, allowed to ask questions and try oxygen machine himself. Patient verbalized understanding and had no further questions. IV was removed and covered with a C/D/I dressing at 1530. Patient was wheeled to his daughter's car in a wheelchair at 1546. No further issues or complaints.
--- NOTE | 2020-02-13 21:38 | NUR ---
D/C summary Principal Dx: Multifocal PNA due to COVID19 - ceftriaxone/azithromycin/decadron; COVID testing; Ayaz- improving; hold nephrotoxic meds Severe sepsis- with renal dys; abx as above; fluids if needed UTI- iv abx A/fib with RVR Hematuria- f/u outpt with urology COVID19 positive infection Secondary Dx: Chronic A.fib- BB; AC Physical deconditioning- PT Prop; pepcid on AC Dispo: f/u 02-10 cont supportive care; 8- COVID19 positive infection; PNA due to COVID19; BPH with large nodular prostate; consider TURP in future; Cultures negative; renal fn improving; d/c planning; PT; ambulate; home O2 eval; Hematuria; check labs; d/c home stable f/u pcp 2 days and cardio 1 week and urology 1 week and pulmonary 1 week d/c>35mins Carlton Boone MD, PhD.
== END 2020-02-13 15:51 | disposition home or self-care (01) | DRG 871 ==
LOC: ER 20:06 → ERHOLD 22:02 → MED/SURG3 23:36 → IMCU 02-10 10:54
PROVIDERS: ADMIT Internal Medicine; ATTEND Internal Medicine
DX: A41.9 Sepsis, unspecified organism (principal); U07.1 COVID-19; J12.89 Other viral pneumonia; G93.41 Metabolic encephalopathy; I48.20 Chronic atrial fibrillation, unspecified; N17.9 Acute kidney failure, unspecified; N39.0 Urinary tract infection, site not specified; R65.20 Severe sepsis without septic shock; I10 Essential (primary) hypertension; N40.0 Benign prostatic hyperplasia without lower urinary tract symptoms; R53.81 Other malaise; Z88.0 Allergy status to penicillin; R31.9 Hematuria, unspecified; Z79.01 Long term (current) use of anticoagulants; R09.02 Hypoxemia; N40.1 Benign prostatic hyperplasia with lower urinary tract symptoms; N39.41 Urge incontinence; R39.14 Feeling of incomplete bladder emptying; Z09 Encounter for follow-up examination after completed treatment for conditions other than malignant neoplasm; Z87.440 Personal history of urinary (tract) infections; Z87.898 Personal history of other specified conditions; Z91.5 Personal history of self-harm; E66.9 Obesity, unspecified; Z68.29 Body mass index [BMI] 29.0-29.9, adult; N32.81 Overactive bladder; K42.9 Umbilical hernia without obstruction or gangrene; D64.9 Anemia, unspecified
CPT/HCPCS: 36415; 71045; 74178; 80048; 80053; 81001; 82550; 82553; 83605; 83735; 84484; 85025; 87040; 87086; 93005; 97139; 99284; J0456; J0696; J1100; J7030; J7050; Q9967; U0002

== ENCOUNTER 2020-05-22 04:36 | Emergency (ER) | payer OTHER, MEDICARE ==
[~2020-05-22] VITALS: Ht 175.3 cm; Wt 90.7 kg
[~2020-05-22 04:36] MED LIST changes: +ACETAMINOPHEN500 M1 PO; +HYDROCHLOROTHIA25 MG PO
[2020-05-22 05:06] LABS: BASOPHILS % 0.6 % (0.0-1.0); EOSINOPHILS # (AUTO) 0.1 (0.0-0.4); EOSINOPHILS % 1.4 % (0.0-6.0); LYMPHOCYTES # (AUTO) 1.4 (1.0-3.2); LYMPHOCYTES % 20.7 % (18.0-39.1); MEAN CORPUSCULAR HEMOGLOBIN 27.2 pg (28-32); MEAN CORPUSCULAR HGB CONC 30.6 g/dL (31-35); MEAN CORPUSCULAR VOLUME 89.1 fL (81-99); MONOCYTES # (AUTO) 0.7 (0.2-0.8); MONOCYTES % 11.2 % (4.4-11.3); NEUTROPHILS # (AUTO) 4.4 (2.1-6.9); NEUTROPHILS % 65.6 % (38.7-80.0); PLATELET COUNT 199 x10e3/uL (140-360); RED BLOOD COUNT 4.04 x10e6/uL (4.3-5.7); RED CELL DISTRIBUTION WIDTH 15.7 % (11.7-14.4)
--- OUTSIDE RECORDS SUMMARY | 2020-05-22 05:24 | XMS REPORT | Clinical Summary ---
Author Author [facility] Organization [facility] Address Unknown Phone Unavailable Care Team Providers Care Change Agent Name Role Phone PCP Unavailable Allergies Not on File Medications Not on file Active Problems Not on file Encounters Care Team Description Date Type Specialty Huber Vieyra MD Contact with and (suspected) exposure to other viral communicable diseases (Primary Dx) 03/13/2020 Lab Lab Huber Vieyra MD Contact with and (suspected) exposure to other viral communicable diseases (Primary Dx) 02/25/2020 Lab Lab after 05/22/2019 Social History Date Tobacco Use Types Packs/Day Years Used Never Assessed Sex Assigned at Date Recorded Not on file Last Filed Vital Signs Not on file Plan of Treatment Health Maintenance Due Date Last Done Comments SHINGLES VACCINES (#1) 1989 65+ PNEUMOCOCCAL VACCINE 01/21/2004 (1 of 1 - PPSV23) INFLUENZA VACCINE 02/12/2020 Procedures Comments Procedure Name Priority Date/Time Associated Diag nosis COVID-19 QUALITATIVE PCR Routine 03/13/[address] with and 2:16 PM CDT (suspected) exposure to other viral communicable diseases COVID-19 QUALITATIVE PCR Routine 02/25/[address] with and 12:07 PM CDT (suspected) exposure to other viral communicable diseases after 05/22/2019 Results * COVID-19 qualitative PCR (03/13/2020 2:16 PM CDT) Only the most recent of 2 results within the time period is included. Interpretation Positive results are [facility] [place] indicative of active infection [facility] with 2019-nCoV but do not rule HOSPITAL out bacterial infection or coinfection with other viruses. The agent detected may not be the definite cause of disease. COVID-19 Detected (A) Not-Detected [facility] qualitative PCR [facility] result HOSPITAL COVID-19 See link below for PDF Lab [facility] [facility] qualitative PCR ReportComment: Case Number: [facility] [id number] HOSPITAL Specimen Nasopharyngeal swab Performing Organization Address City/State/ZIP Code P duglas Number [facility] DEPARTMENT OF [address] [place] [address] PATHOLOGY AND GENOMIC MEDICINE [address] [address] [facility] after 05/22/2019 Insurance Type Payer Benefit Subscriber ID Effective Phone Address Plan / Dates Group HMO [employer] C[employer]NA [id number] 2019-P [employer] [facility] MCR ADV Advance Directives For more information, please contact: [phone] Patient Information Director Explanation Type Date Recorded Advance Directives, Living Will and Medical Power of Brigadier
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
[2020-05-22 05:25] LABS: ALBUMIN 3.3 g/dL (3.5-5.0); ALBUMIN/GLOBULIN RATIO 1.1 (0.8-2.0); ANION GAP 13.9 mmol/L (8-16); CALCIUM 8.1 mg/dL (8.4-10.2); CREATININE, SERUM 1.22 mg/dL (0.72-1.25); POTASSIUM 3.9 mmol/L (3.5-5.1)
--- OUTSIDE RECORDS SUMMARY | 2020-05-22 05:25 | XMS REPORT | Continuity of Care Document ---
Author Author [facility] t Organization [facility] Address [facility] [address] [place] [address] Phone Unavailable Care Team Providers Care Project/Production Manager Imaging Name Role Phone ANNEL FREEMAN MD PCP Jarrell DOLL, Mehul Ngo Attphys [phone] DANIELA, AMAURY Attphys Unavailable SWEET, A LAIRD Attphys Unavailable HAMPEL, EULALIO Attphys Unavailable DANIELA, AMAURY Admphys Unavailable Payers Payer Name Policy Type Policy Number Effective Date Expiration Date S sharon [facility] ADVxxxxxx [id number] 2019-PresentO [id number] 2019 00:00:00 [place] [facility] [id number] 2017 00:00:00 [facility] Only [id number] [facility] Problems Condition Name Condition Details Condition Category Status Onset Date Resolution Date Last Treatment Date Treating Clinician Comments Source Atrial fibrillation with rapid ventricular response [facility] fibrillation with RVR Problem Active 2015-12-08 00:00:00 [facility] Chest discomfort Chest discomfort Problem Active 2015-12-08 00:00:00 [facility] CCL/ AFIB/ EPS PVI ABLATION/ *MARIANA*/ *TRANSEPTAL ICE*/ G CCL/ AFIB/ EPS PVI ABLATION/ *MARIANA*/ *TRANSEPTAL ICE*/ G Active 07/23/2011 [facility] Diagnosis Active 2011-07-23 00:00:00 2011-08-14 1 1:47:00 Esdras Bhardwaj CCL/ AFIB/ EPS PVI ABLATION/ *MARIANA*/ *TRANSEPTAL ICE*/ . CCL/ AFIB/ EPS PVI ABLATION/ *MARIANA*/ *TRANSEPTAL ICE*/ . Active 07/23/2011 [facility] Diagnosis Active 2011-07-23 00:00:00 2011-08-30 1 9:35:00 [facility] Ablation Abla tion Active Problem 08/17/2011 [facility] Problem Active 2011-08-17 09:18:58 [facility] orikisha [place] HTN - Hypertension HTN - Hypertension Active Problem 08/17/2011 [facility] Problem Active 2011-08-17 09 :18:58 [facility] Allergies, Adverse Reactions, Alerts Allergy Name Allergy Type Status Severity Reaction(s) Onset Date Inacti ve Date Treating Clinician Comments Source Penicillin Allergy to Substance Active Moderate ITCHING 2019-01-08 00:0 0:00 [facility] penicillins penicillins Active [facility] Social History Social Habit Start Date Stop Date Quantity Comments Source Sex Assigned At Yue Barboza Medications Ordered Medication Name Filled Medication Name Start Date Stop Da te Current Medication? Ordering Clinician Indication Dosage Frequency Signature (SIG) Comments Components Source Norvasc 5 mg oral tablet 2011-08-15 18:41:23 Yes Tra cy Rehbein Ferrando 5 mg, 1 tab, PO, Daily, 30 tab, 2, 2, Substitution Allowed, TAB [facility] hydrALAZINE 2011-08-15 18:40:00 No Omayra Rehbein Ferran do 20 mg, 1 mL, Route: IV, Drug form: INJ, ONCE, Start date: 08/15/11 12:40:00, Stop date: 08/15/11 12:40:00 [facility] K-Dur 20 2011-08-15 16:30:00 No Omayra Rehbein Ferrando 40 mEq, 2 tab, Route: PO, Drug form: ERTAB, ONCE, Start date: 08/15/11 10:30:00, Stop date: 08/15/11 10:30:00 [facility] 2011-08-15 16:30:00 No Omayra Rehbein Ferrand o 100 mg, 1 tab, Route: PO, Drug form: ERTAB, ONCE, Start date: 08/15/11 10:30:00, Stop date: 08/15/11 10:30:00 [facility] hydrALAZINE 2011-08-15 16:30:00 No Omayra Rehbein Ferran do 10 mg, 0.5 mL, Route: IV, Drug form: INJ, ONCE, Start date: 08/15/11 10:30:00, Stop date: 08/15/11 10:30:00 [facility] warfarin 2 mg oral tablet 2011-08-15 16:05:07 Yes Tr arvind Rehbein Ferrando 2 mg, 1 tab, PO, Daily, 30 tab, 2, 2, Substitution All owed Esdras Bhardwaj Metoprolol Succinate ER 100 mg oral tablet, extended release 2011-08-15 15:59:00 No Omayra Rehbein Ferrando 1 tab, Route: PO, ONCE, Start date: 08/15/11 9:59:00, Stop date: 08/15/11 9:59:00 Esdras Madisonann hydrALAZINE 2011-08-15 15:58:00 No Omayra Rehbein Ferran do 10 mg, Route: IV, ONCE, Start date: 08/15/11 9:58:00, Stop date: 08/15/11 9:58:00 [facility] potassium chloride 2011-08-15 15:57:00 No Omayra Rehbein Ferrando 40 mEq, Route: PO, Drug form: ERTAB, ONCE, Start date: 08/15/11 9:57:00, Duration: 1 doses or times, Stop date: 08/15/11 9:57:00, For K = 3.5 - 3.9 mEq/LFor K = 3.5 - 3.9 mEq/L [facility] Metoprolol Succinate ER 200 mg oral tablet, extended release 2011-08-15 15:36:02 Yes Omayra Rehbein Ferrando 200 mg, 1 tab, PO, BID, 60 tab, 2, 2, Substitution Allowed Esdras [facility] Macrobid 100 mg oral capsule 2011-08-15 15:27:43 Y es Omayra Rehbein Ferrando 1 cap, PO, BID, 8 cap, Substitution Allowed Esdras [facility] Protonix 40 mg oral enteric coated tablet 2011-08-15 15:26 :09 Yes Omayra Rehbein Ferrando 40 mg, 1 tab, P O, Before Dinner, 30 tab, Substitution Allowed, ECTAB [facility] Carafate 1 g oral tablet 2011-08-15 15:26:05 Yes Tra cy Rehbein Ferrando 1 gm, 1 tab, PO, QID, 28 tab, Substitution Allowed, TAB [facility] acetaminophen-hydrocodone 325 mg-5 mg oral tablet 15:25:19 Yes Omayra Rehbein Ferrando 1 tab, PO , Q4H, PRN, 40 tab, Pain Score 1-5, Substitution Allowed, Maintenance, TAB [facility] AMIODarone 200 mg oral tablet 2011-08-15 15:25:14 Yes Omayra Rehbein Ferrando 200 mg, 1 tab, PO, BID, 60 tab, 2, 2, Feliciano bstitution Allowed, TAB [facility] enalapril 20 mg oral tablet 2011-08-15 15:23:48 Ye s Omayra Rehbein Ferrando 40 mg, 2 tab, PO, Daily, 60 tab, Substitution A llowed, TAB [facility] hydrALAZINE 2011-08-15 06:30:00 No Danai Kitkungvan 10 mg, 0.5 mL, Route: IV, Drug form: INJ, ONCE, Start date: 08/15/11 0:30:00, Stop date: 08/15/11 0:30:00 [facility] Colace 50 mg oral capsule 2011-08-15 03:00:00 No Tr acy Rehbein Ferrando 50 mg, 1 cap, Route: PO, Drug form: CAP, Bedtime, Start date: 08/14/11 21:00:00, Duration: 30 day, Stop date: 09/12/11 21:00:00 [facility] warfarin 2011-08-14 23:00:00 No Omayra Rehbein Ferrando 5 mg, 1 tab, Route: PO, Drug form: TAB, Q5PM, Start date: 08/14/11 17:00:00, Duration: 1 doses or times, Stop date: 08/14/11 17:00:00 [facility] Lasix 40 mg oral tablet 2011-08-14 16:00:00 No Omayra Re hbein Ferrando 40 mg, 1 tab, Route: PO, Drug form: TAB, Daily, Start date: 08/14/11 10:00:00, Duration: 30 day, Stop date: 09/13/11 9:00:00 [facility] ibuprofen 200 mg oral tablet 2011-08-14 15:43:00 N o Omayra Rehbein Ferrando 400 mg, 1 tab, Route : PO, Drug form: TAB, Q4H, PRN Pain, Start date: 08/14/11 9:43:00, Duration: 30 day, Stop date: 09/13/11 9:42:00 [facility] finasteride 2011-08-14 15:00:00 No Omayra Rehbein Ferran do 5 mg, 1 tab, Route: PO, Drug form: TAB, Daily, Start date: 08/14/11 9:00:00, Duration: 30 day, Stop date: 09/12/11 9:00:00 Estuardo Bhardwaj enalapril 2011-08-14 15:00:00 No Omayra Rehbein Ferrando 40 mg, 2 tab, Route: PO, Drug form: TAB, Daily, Start date: 08/14/11 9:00:00, Duration: 30 day, Stop date: 09/12/11 9:00:00 Estuardo Bhardwaj Macrobid 2011-08-14 15:00:00 No Omayra Rehbein Ferrando 100 mg, Route: PO, Drug form: CAP, [id number], Start date: 08/14/11 9:00:00, Duration: 5 day, Stop date: 08/18/11 21:00:00 [facility] Mac[facility] 2011-08-14 15:00:00 No Omayra Rehbein Ferran do 100 mg, 1 cap, Route: PO, Drug form: CAP, Q6H-02, Start date: 08/14/11 9:00:00, Duration: 5 day, Stop date: 08/19/11 3:00:00 Sandra Bhardwaj ciprofloxacin 2011-08-14 15:00:00 No Omayra Rehbein Ferr ando 500 mg, 1 tab, Route: PO, Drug form: TAB, Q12H, Start date: 08/14/11 9:00:00, Duration: 5 day, Stop date: 08/18/11 21:00:00 Melissa Plunkett Saline Flush 0.9% 2011-08-14 03:00:00 No Omayra Rehbein Ferrando 5 ml, Route: IVP, Drug Form: INJ, Q12H, Start date: 08/13/11 21:00:00, Duration: 30 day, Stop date: 09/12/11 9:00:00 Estuardo Bhardwaj metoprolol 2011-08-13 23:00:00 No Omayra Rehbein Ferrand o 100 mg, 1 tab, Route: PO, Drug form: TAB, BID, Start date: 08/13/11 17:00:00, Duration: 30 day, Stop date: 09/12/11 9:00:00 Estuardo Bhardwaj warfarin 2011-08-13 23:00:00 No Omayra Rehbein Ferrando 5 mg, 1 tab, Route: PO, Drug form: TAB, Q5PM, Start date: 08/13/11 17:00:00, Duration: 1 doses or times, Stop date: 08/13/11 17:00:00 [facility] AMIODarone 2011-08-13 23:00:00 No Omayra Rehbein Ferrand o 200 mg, 1 tab, Route: PO, Drug form: TAB, BID, Start date: 08/13/11 17:00:00, Duration: 30 day, Stop date: 09/12/11 9:00:00 Estuardo Bhardwaj Protonix 2011-08-13 22:30:00 No Omayra Rehbein Ferrando 40 mg, 1 tab, Route: PO, Drug form: ECTAB, Before Dinner, Start date: 08/13/11 16:30:00, Duration: 30 day, Stop date: 09/11/11 16:30:00 [facility] Carafate 2011-08-13 19:00:00 No Omayra Rehbein Ferrando 1 gm, 1 tab, Route: PO, Drug form: TAB, QID, Start date: 08/13/11 13:00:00, Duration: 7 day, Stop date: 08/20/11 9:[facility]:00 [facility] 16:38:00 No Maria T Felipe 30 mg, 2 cap, Route: PO, Drug form: CAP, Bedtime, PRN Sleep, Start date: 08/13/11 10:38:00, Duration: 30 day, Stop date: 09/12/11 10:37:00 Melissa [facility] Saline Flush 0.9% 2011-08-13 15:59:00 No Omayra Rehbein Ferrando 5 ml, Route: IVP, Drug Form: INJ, PRN, PRN Line Flush, Start date: 08/13/11 9:59:00, Duration: 30 day, Stop date: 09/12/11 9:58:00 [facility] Zofran 2011-08-13 15:59:00 No Omayra Rehbein Ferrando 4 mg, 2 mL, Route: IVP, Drug form: INJ, Q8H, PRN Nausea, Start date: 08/13/11 9:59:00, Duration: 30 day, Stop date: 09/12/11 9:58:00 [facility] magnesium oxide 2011-08-13 15:59:00 No Omayra Rehbein Fe rrando 400 mg, 1 tab, Route: PO, Drug form: TAB, Daily, PRN Abnormal Lab Result, Start date: 08/13/11 9:59:00, Duration: 30 day, Stop date: 09/12/11 9:58:00 [facility] potassium chloride 20 mEq oral tablet, extended release 2011-08-13 15:59:00 No Omayra Rehbein Ferrando 20 mE q, 1 tab, Route: PO, Drug form: ERTAB, Daily, PRN Abnormal Lab Result, Replacement for potassium less than 3.5, Start date: 08/13/11 9:59:00, Duration: 30 day, Stop date: 09/12/11 9:58:00 [facility] Ambien 2011-08-13 15:59:00 No Omayra Rehbein Ferrando 10 mg, Route: PO, Bedtime, PRN Insomnia, Start date: 08/13/11 9:59:00, Duration: 30 day, Stop date: 09/12/11 9:58:00 [facility] morphine Sulfate 2011-08-13 15:59:00 No Omayra Rehbein F errando 2 mg, 1 mL, Route: IVP, Drug form: INJ, Q15Min, PRN Chest Pain, Start date: 08/13/11 9:59:00, Duration: 2 doses or times, Stop date: 08/13/11 18:00:00 [facility] acetaminophen-hydrocodone 325 mg-5 mg oral tablet 15:59:00 No Omayra Rosaleso 1 tab, [place]: PO, Drug Form: TAB, Q4H, PRN Pain Score 1-5, Start date: 08/13/11 9:59:00, Duration: 30 day, Stop date: 09/12/11 9:58:00 [facility] Saline Flush 0.9% 2011-08-13 15:00:00 No Maria T Felipe 5 ml, Route: IVP, Drug Form: INJ, Q12H, Start date: 08/13/11 9:00:00, Duration: 30 day, Stop date: 09/11/11 21:00:00 [facility] Saline Flush 0.9% 2011-08-13 12:43:00 No Maria T Felipe 5 ml, Route: IVP, Drug Form: INJ, PRN, PRN Line Flush, Start date: 08/13/11 6:43:00, Duration: 30 day, Stop date: 09/12/11 6:42:00 [facility] finasteride 5 mg oral tablet 2011-08-13 11:50:04 Yes Substitution Allowed [facility] tamsulosin 0.4 mg oral capsule 2011-08-13 11:49:44 Yes Substitution Allowed [facility] oxybutynin 5 mg oral tablet 2011-08-13 11:49:24 Yes 5 mg, 1 tab, PO, TID, PRN, 30 tab, Other-See Comments, Substitution Allowed, TAB [facility] enalapril 2011-08-13 11:48:42 No 60 mg, Sub stitution Allowed [facility] metoprolol 100 mg oral tablet 2011-08-13 11:48:00 No 100 mg, PO, Substitution Allowed [facility] Amiodarone Hcl 200 Mg Tablet Amiodarone Hcl 200 Mg Tablet Y es 100 Daily [facility] Amlodipine Besylate 10 Mg Tablet Amlodipine Besylate 10 Mg Tablet Yes 10 Daily [facility] Amoxicillin 250 Mg Capsule Amoxicillin 250 Mg Capsule Yes 500 Three Times A Day [facility] Esomeprazole Magnesium (Nexium) 40 Mg Capsule.dr Esome prazole Magnesium (Nexium) 40 Mg Capsule. Yes 40 Daily [facility] Finasteride 5 Mg Tablet Finasteride 5 Mg Tablet Yes 5 Daily [facility] Lisinopril 10 Mg Tablet Lisinopril 10 Mg Tablet Yes 10 Daily [facility] Losartan Potassium 100 Mg Tablet Losartan Potassium 100 Mg Tablet Yes 100 Daily [facility] Metoprolol Tartrate 100 Mg Tablet Metoprolol Tartrate 100 Mg Tablet Yes 100 Twice A Day [facility] Oxybutynin Chloride (Ditropan 5MG Tab) 5 Mg Tab Oxybut ynin Chloride (Ditropan 5MG Tab) 5 Mg Tab Yes 5 Three Times A Day [facility] Rivaroxaban (Xarelto) 20 Mg Tablet Rivaroxaban (Xarelto) 20 Mg Tablet Yes 20 Bedtime [facility] Tamsulosin Hcl 0.4 Mg Cap.er.24h Tamsulosin Hcl 0.4 Mg Cap.er.24h Yes .4 Daily [facility] Trazodone Hcl 50 Mg Tablet Trazodone Hcl 50 Mg Tablet Yes 50 Daily [facility] Aspirin 325 Mg Tablet, 325 Mg Oral Aspirin 325 Mg Tablet, 325 Mg Oral 2018-02-13 00:00:00 No 325 Daily [facility] Rivaroxaban (Xarelto) 20 Mg Tablet, 20 Mg Oral Rivarox aban (Xarelto) 20 Mg Tablet, 20 Mg Oral 2016-01-30 00:00:00 No 20 Bedti me [facility] Tamsulosin Hcl 0.4 Mg Cap.er.24h, 0.4 Mg Oral Tamsulos in Hcl 0.4 Mg Cap.er.24h, 0.4 Mg Oral 2016-01-30 00:00:00 No .4 Daily [facility] Trazodone Hcl 50 Mg Tablet, 25 Mg Oral Trazodone Hcl 50 Mg Table t, 25 Mg Oral 2016-01-30 00:00:00 No 25 Bedtime as needed fo r Insomnia [facility] Enalapril Maleate (Vasotec) 10 Mg Tablet, 20 Mg Oral E nalapril Maleate (Vasotec) 10 Mg Tablet, 20 Mg Oral 2015-12-09 00:00:00 No 20 Twice A Day [facility] Hydrochlorothiazide 12.5 Mg Capsule, 12.5 Mg Oral Hydr ochlorothiazide 12.5 Mg Capsule, 12.5 Mg Oral 2015-12-09 00:00:00 No 12.5 Da chemo [facility] Warfarin Sodium 1 Mg Tablet, Warfarin Sodium 1 Mg Tablet, 2015-12-09 00:00:00 No As Directed [facility] Losartan Potassium 25 Mg Tablet, 25 Mg Oral Losartan P otassium 25 Mg Tablet, 25 Mg Oral 2013-01-31 00:00:00 No 25 Daily [facility] Isosorbide Mononitrate (Imdur) 30 Mg Tab.sr.24h, Isoso rbide Mononitrate (Imdur) 30 Mg Tab.sr.24h, 2012-06-08 00:00:00 No Daily [facility] Trimethoprim/Sulfamethoxazole (Bactrim Ds) 1 Ea Tab, Trimethoprim/Sulfamethoxazole (Bactrim Ds) 1 Ea Tab, 2012-06-08 00: 00:00 No Daily [facility] Amlodipine Besylate (Norvasc) 10 Mg Tablet, Amlodipine Besylate (Norvasc) 10 Mg Tablet, 2011-03-16 00:00:00 No Daily [facility] Vital Signs Vital Name Observation Time Observation Value Comments Source Respitory Rate 2011-08-15 19:35:00 [facility] Systolic (mm Hg) 2011-08-15 19:35:00 [place] [facility] Diastolic (mm Hg) 2011-08-15 19:35:00 [facility] Temperature Oral (F) 2011-08-15 19:35:00 98.0 F [facility] Heart Rate 2011-08-15 19:35:00 [facility] Systolic (mm Hg) 2011-08-15 18:25:00 [place] [place] [facility] Diastolic (mm Hg) 2011-08-15 18:25:00 [facility] Heart Rate 2011-08-15 18:25:00 [facility] Respitory Rate 2011-08-15 18:25:00 [facility] Systolic (mm Hg) 2011-08-15 17:41:00 [place] [facility] Temperature Oral (F) 2011-08-15 17:41:00 98.0 F [facility] Respitory Rate 2011-08-15 17:41:00 [facility] Diastolic (mm Hg) 2011-08-15 17:41:00 [facility] Heart Rate 2011-08-15 15:45:00 [facility] Temperature Oral (F) 2011-08-15 14:54:00 97.0 F [facility] Height 2011-08-13 12:43:00 165.10 cm [facility] Weight 2011-08-13 12:43:00 [facility] Weight 2011-08-13 11:50:00 [facility] Height 2011-08-13 11:50:00 175.26 cm [facility] Procedures Procedure Date / Time Performed Performing Clinician Sour e COVID-19 QUALITATIVE PCR 2020-03-13 14:16:00 Wendy Feliz COVID-19 QUALITATIVE PCR 2020-02-25 12:07:00 Wendy Feliz RPR S/N/AX/GEN/TRNK2.6-7.5CM 2019-01-08 00:00:00 MONTELLOCLAUDE [facility] CMPLX RPR F/C/C/M/N/AX/G/H/F 2019-01-08 00:00:00 MONTELLOCLAUDE [facility] Plan of Care Planned Activity Planned Date Details Comments Source Future Scheduled Test 2020-02-12 00:00:00 INFLUENZA VACCINE [code = INFLUENZA VACCINE] [facility] Future Scheduled Test 2004-01-21 00:00:00 65+ PNEUMOCOCCAL V ACCINE (1 of 1 - PPSV23) [code = 65+ PNEUMOCOCCAL VACCINE (1 of 1 - PPSV23)] [facility] Future Scheduled Test 1989 00:00:00 SHINGLES VACCINES (#1) [code = SHINGLES VACCINES (#1)] [facility] Encounters Start Date/Time End Date/Time [facility] Source 2020-03-13 00:00:00 2020-03-13 00:00:00 Outpatient JESUSITA FELIZ [facility] [id number] Amandeep Barboza 2020-02-25 00:00:00 2020-02-25 00:00:00 Outpatient JESUSITA FELIZ [facility] [id number] Amandeep Barboza 2019-02-14 11:55:00 2019-02-14 16:10:00 [facility] [id number] [facility] 2019-01-08 10:47:00 2019-01-08 13:57:00 Departed Emergency Room 1 [facility]LLO [facility] [id number] [facility] 2018-02-14 13:20:00 2018-02-18 16:49:00 Discharged Inpatient 3 EULALIO MARROQUIN [facility] [id number] [facility] Results Test Description Test Time Test Comments Results Result Comments Source COVID-19 qualitative PCR 2020-03-14 02:09:14 Test Item Interpretation (test code = 9517021) Positive results are indicative of active infection with 2019-nCoV but do not rule out bacterial infection or coinfection with other viruses. The agent detected may not be the definite cause of disease. COVID-19 qualitative PCR result (test code = 99131-8) Detected Not-Detected A COVID-19 qualitative PCR (test code = 7070) See link below for P DF Lab Report Lab Interpretation (test code = 84915-0) [facility] [id number] 16:41:00 [facility] [address] [address] Patient Name: DANN DAVIS JR MR #: [id number] : 1940 Age/Sex: 80/M Req #: [id number] Adm Physician: AMAURY SUAREZ MD Ordered by: EULALIO MARROQUIN MD Report #: [id number] Location: [facility] Room/Bed: [place] [address] Procedure: [id number] CT/CT ABDOMEN/PELVI S WOW Exam Date: 02/11/20 Exam Time: 1540 REPORT STATUS: Signed EXAM: CT Abdomen and Pelvis WITHOUT and WITH intravenous contrast - Hematuriaprotocol INDICAT ION: Hematuria COMPARISON: None. TECHNIQUE: Abdomen and pelvis were sc anned utilizing a multidetector helical scanner from the lung base to the pubi c symphysis before and after administration of IV contrast. Coronal and sagitt al reformations were obtained. Hematuria protocol was used. Scan was performed prior to contrast administration and during portal venous phase. IV CONTRAST: 100 mL of Isovue 370 ORAL CONTRAST: Water COMPLIC ATIONS: None RADIATION DOSE: Total DLP: 1535 mGy*cm Dose modulation , iterative reconstruction, and/or weight based adjustment of the mA/kV was ut ilized to reduce the radiation dose to as low as reasonably achievable. FINDINGS: LOWER THORAX: Peripheral groundglass opacities at both lung bases co mpatible with known history of viral pneumonia. Coronary artery atheroscleroti c calcifications. HEPATOBILIARY: No focal liver lesion. No biliary ductal dilation. Unremarkable gallbladder. SPLEEN: No splenomegaly. PANCRE : No focal masses or ductal dilatation. ADRENALS: No adrenal nodules. K IDNEYS/URETERS: 2 mm left midpole nonobstructive renal calculus. Left upper po le exophytic simple renal cyst measures up to 6.9 cm. Right upper pole exophyt ic renal cyst measures up to 3.2 cm. No solid mass lesion. Postcontrast images demonstrate opacification of the entire course of both ureters without eviden ce of filling defect. PELVIC ORGANS/BLADDER: Severely enlarged prostate measur es up to 7.4 x 5.7 x 7.6 cm (volume estimate 168cc) with coarse internal calci fications and nodular bulging into the posterior bladder. PERITONEUM / RE TROPERITONEUM: No free air or fluid. LYMPH NODES: No lymphadenopathy. VESSEL S: Moderate scattered atherosclerotic calcifications of the nonaneurysmal abdo sima aorta and major branches. GI TRACT: No abnormal bowel thickening. No bowel obstruction. Normal appendix. BONES AND SOFT TISSUES: Age indetermina te loss of anterior vertebral body height at T12. No suspicious lytic or blast ic lesions. Small ventral abdominal hernia containing fat. IMPRESSION: Severely enlarged prostate with nodular bulging into the bladder. 2mm left midpole nonobstructive renal calculus. Peripheral groundglass opacities at both lung bases compatible with known history of viral pneumonia. Signed by: Maria L Tripp MD on 02/11/2020 4:50 PM Dictated By: MARIA L TRIPP MD Elec tronically Signed By: MARIA L TRIPP MD on 02/11/201649 Transcribed By: CARMELITA on 02/11/201649 COPY TO: EULALIO MARROQUIN MD CHEST SINGLE (PORTABLE) 2020-02-09 21:02:[address] [address] Patient Name: DANN DAVIS JR MR #: [id number] : 1940 Age/Sex: 80/M Req #: [id number] Adm Physician: Ordered by: CHAUNCEY TAVERA MD Report #: [id number] Location: ER Room/Bed: Procedure: [id number] DX/CHEST SINGLE (PORTABLE) Exam Date: 02/09/20 Exam Time: 203 0 REPORT STATUS: Signed EXAMINAT ION: CHEST SINGLE (PORTABLE) INDICATION: Cough and shortness of breath . COMPARISON: Multiple prior chest x-rays including most recent on 9. FINDINGS: TUBES and LINES: None. LUNGS: Low lung vol umes. There is multifocal patchy airspace opacities throughout both lungs part icularly at the bases. PLEURA: No pleural effusion or pneumothorax. H EART AND MEDIASTINUM: The cardiomediastinal silhouette is unremarkable. BONES AND SOFT TISSUES: No acute osseous lesion. Soft tissues are unremark able. UPPER ABDOMEN: No free air under the diaphragm. IMPRESSION: Patchy airspace opacities throughout both lungs particularly at the bases which most likely represent multifocal pneumonia, likely viral. Repeat chest radiographs in 6-8 weeks to ensure resolution. Signed by: Goldy Andrade MD on 02/09/2020 9:03 PM Dictated By: GOLDY ANDRADE MD Electronically S igned By: GOLDY ANDRADE MD on 02/09/202102 Transcribed By: CARMELITA on 2102 COPY TO: CHAUNCEY TAVERA MD Troponin [id number] 13:55:00* Test Item Value Reference Range Interpretation Comments Troponin I (test code = 95864-4) < 0.05 0.0-0.40 [facility] [id number] 13:41:00* Test Item Value Reference Range Interpretation Comments Urine Color (test code = 5778-6) YELLOW YELLOW [facility] [id number] 13:41:00* Test Item Value Reference Range Interpretation Comments Urine Clarity (test code = 84287-8) HAZY CLEAR [facility] Specific [id number] 13:41:00 * Test Item Value Reference Range Interpretation Comments Urine Specific [place] (test code = 5811-5) 1.015 1.010-1.02 5 [facility] [facility]ressUrine jE0963-41-83 13:41:00* Test Item Value Reference Range Interpretation Comments Urine pH (test code = 90037-0) 6.5 5-7 [facility] Leukocyte Yuoewzdg3004-69-89 13:41:00* Test Item Value Reference Range Interpretation Comments Urine Leukocyte Esterase (test code = 5799-2) NEGATIVE NEGATIVE [facility]ress[facility] Bomfwkc6833-50-97 13:41:00* Test Item Value Reference Range Interpretation Comments Urine Nitrite (test code = 72375-9) NEGATIVE NEGATIVE [facility]ressU[facility] Iwfnouu5397-34-17 13:41:00* Test Item Value Reference Range Interpretation Comments Urine Protein (test code = 5804-0) 1+ NEGATIVE H [facility] Glucose (UA)2019-02-14 13:41:00* Test Item Value Reference Range Interpretation Comments Urine Glucose (UA) (test code = 2349-9) NEGATIVE NEGATIVE [facility] Mspovhi0690-69-74 13:41:00* Test Item Value Reference Range Interpretation Comments Urine Ketones (test code = 73535-1) NEGATIVE NEGATIVE [facility] Kdhsrupoahia1189-85-91 13:41:00* Test Item Value Reference Range Interpretation Comments Urine Urobilinogen (test code = 45692-0) 0.2 0.2-1 [facility] Vhtzyscxi3701-86-30 13:41:00* Test Item Value Reference Range Interpretation Comments Urine Bilirubin (test code = 1978-6) NEGATIVE NEGATIVE [facility] Ooyai4843-89-86 13:41:00* Test Item Value Reference Range Interpretation Comments Urine Blood (test code = 80295-1) 2+ NEGATIVE H [facility] SHQ0669-70-67 13:41:00* Test Item Value Reference Range Interpretation Comments Urine WBC (test code = 5821-4) 0-5 0-5 [facility] QAW8646-27-48 13:41:00* Test Item Value Reference Range Interpretation Comments Urine RBC (test code = 85156-8) 6-10 0-5 [facility] Lgfcxwmt2826-14-45 13:41:00* Test Item Value Reference Range Interpretation Comments Urine Bacteria (test code = 62936-7) FEW NONE [facility] Epithelial Qeybo9552-41-76 13:41:00 * Test Item Value Reference Range Interpretation Comments Urine Epithelial Cells (test code = 36425-1) FEW NONE [facility] Amorphous Jkzikkdw1406-52-19 13:41:00* Test Item Value Reference Range Interpretation Comments Urine Amorphous Sediment (test code = 8246-1) FEW FEW [facility] Hyaline Qscdp2452-54-64 13:41:00* Test Item Value Reference Range Interpretation Comments Urine Hyaline Casts (test code = 08583-4) 0-1 0-1 [facility]ress[facility] Fine Granular Ibobu1870-19-15 13:41:00* Test Item Value Reference Range Interpretation Comments Urine Fine Granular Casts (test code = 78993-1) 1-5 >0 H [facility] CypressB-Type Natriuretic Lamtdyp3621-22-47 13:26:00* Test Item Value Reference Range Interpretation Comments B-Type Natriuretic Peptide (test code = 01712-2) 376.1 0-100 H [facility] CypressCreatine Kinase UM9384-97-95 13:25:00* Test Item Value Reference Range Interpretation Comments Creatine Kinase MB (test code = 27861-8) 1.10 0-5.0 [facility] Yucju8089-59-39 13:13:00* Test Item Value Reference Range Interpretation Comments Sodium Level (test code = 2951-2) 139 136-145 [facility]ressPotassium Xhmfc3441-12-39 13:13:00* Test Item Value Reference Range Interpretation Comments Potassium Level (test code = 2823-3) 4.5 3.5-5.1 [facility]ressChloride Tjxwv5756-54-82 13:13:00* Test Item Value Reference Range Interpretation Comments Chloride Level (test code = 2075-0) 104 98-107 [facility] CypressCarbon Dioxide Xpiik6112-46-95 13:13:00* Test Item Value Reference Range Interpretation Comments Carbon Dioxide Level (test code = 2028-9) 22 22-29 [facility] CypressAnion Lxi3298-81-62 13:13:00* Test Item Value Reference Range Interpretation Comments Anion Gap (test code = 14376-5) 17.5 8-16 H [facility]ressBlood Urea Ybzobdpk7934-04-01 13:13:00* Test Item Value Reference Range Interpretation Comments Blood Urea Nitrogen (test code = 3094-0) 19 7-26 [facility] CypressCreatinine2019-08-04 13:13:00* Test Item Value Reference Range Interpretation Comments Creatinine (test code = 2160-0) 1.43 0.72-1.25 H [facility] CypressBUN/Creatinine Ndjcg4691-12-14 13:13:00* Test Item Value Reference Range Interpretation Comments BUN/Creatinine Ratio (test code = 3097-3) 13 6 [facility] CypressEstimat Glomerular Filtration Rate 2019-02-14 13:13:00* Test Item Value Reference Range Interpretation Comments Estimat Glomerular Filtration Rate (test code = 921858252) 48 >60 L Ranges were taken from the National Kidney Disease Education Program and the [facility] Kidney Foundation literature.Reference ranges:60 or greater: Oqfmjo81-67 ( for 3 consecutive months): Chronic kidney disease 15 or less: Kidney failureHCA [facility] CypressGlucose Kgxjh2436-75-36 13:13:00* Test Item Value Reference Range Interpretation Comments Glucose Level (test code = AJY4317) 124 74-118 H [facility] CypressCalcium Eltfh2632-08-34 13:13:00* Test Item Value Reference Range Interpretation Comments Calcium Level (test code = 43051-5) 9.1 8.4-10.2 [facility] CypressTotal Xmonfyfla8667-60-99 13:13:00* Test Item Value Reference Range Interpretation Comments Total Bilirubin (test code = 1975-2) 0.7 0.2-1.2 [facility] CypressAspartate Amino Transf (AST/SGOT) 2019-02-14 13:13:00* Test Item Value Reference Range Interpretation Comments Aspartate Amino Transf (AST/SGOT) (test code = Aspartate Amino Transf (AST/SGOT)) 28 5-34 [facility] CypressAlanine Aminotransferase (ALT/SGPT) 2019-02-14 13:13:00* Test Item Value Reference Range Interpretation Comments Alanine Aminotransferase (ALT/SGPT) (test code = 1742-6) 24 0-55 [facility]ressTotal Uwflpno5729-40-74 13:13:00* Test Item Value Reference Range Interpretation Comments Total Protein (test code = 2885-2) 8.1 6.5-8.1 [facility] CypressAlbumin2019-08-04 13:13:00* Test Item Value Reference Range Interpretation Comments Albumin (test code = 1751-7) 3.8 3.5-5.0 [facility] CypressGlobulin2019-08-04 13:13:00* Test Item Value Reference Range Interpretation Comments Globulin (test code = 55900-0) 4.3 2.3-3.5 H [facility] CypressAlbumin/Globulin Mgwuf3428-39-89 13:13:00 * Test Item Value Reference Range Interpretation Comments Albumin/Globulin Ratio (test code = 1759-0) 0.9 0.8-2.0 [facility] CypressAlkaline Gbpcvpeoefj3039-85-74 13:13:00* Test Item Value Reference Range Interpretation Comments Alkaline Phosphatase (test code = 6768-6) 94 40-150 [facility] CypressCreatine Scyyee2084-34-58 13:13:00* Test Item Value Reference Range Interpretation Comments Creatine Kinase (test code = 2157-6) 102 30-200 [facility] CypressProthrombin Olhi5620-40-26 13:02:00* Test Item Value Reference Range Interpretation Comments Prothrombin Time (test code = 5902-2) 14.2 11.9-14.5 [facility] CypressProthromb Time International Ratio 2019-02-14 13:02:00* Test Item Value Reference Range Interpretation Comments Prothromb Time International Ratio (test code = 6301-6) 1.05 Oral Anticoagulant Therapy INR Values:1. Low Intensity Therapy 1.5 - 2.02 . Moderate Intensity Therapy 2.0 - 3.03. High Intensity Therapy(1) 2.5 - 3. 54. High Intensity Therapy(2) 3.0 - 4.05. Panic Value INR > 5.0 [facility] CypressActivated Partial Thromboplast Time 2019-02-14 13:02:00* Test Item Value Reference Range Interpretation Comments Activated Partial Thromboplast Time (test code = 63188-2) 31.9 23.8-35.5 [facility] CypressWhite Blood Yqafl1457-77-17 12:34:00* Test Item Value Reference Range Interpretation Comments White Blood Count (test code = 6690-2) 6.81 4.8-10.8 [facility] CypressRed Blood Mwkqj6453-33-18 12:34:00* Test Item Value Reference Range Interpretation Comments Red Blood Count (test code = 789-8) 4.42 4.3-5.7 [facility] CypressHemoglobin2019-08-04 12:34:00* Test Item Value Reference Range Interpretation Comments Hemoglobin (test code = 19257-7) 14.1 14.0-18.0 [facility] CypressHematocrit2019-08-04 12:34:00* Test Item Value Reference Range Interpretation Comments Hematocrit (test code = 4544-3) 42.0 38.2-49.6 [facility] CypressMean Corpuscular Ejhvyc8921-28-92 12:34:00* Test Item Value Reference Range Interpretation Comments Mean Corpuscular Volume (test code = 787-2) 95.0 81-99 [facility]ressMean Corpuscular Xcpkbutlnk1003-86-97 12:34:00* Test Item Value Reference Range Interpretation Comments Mean Corpuscular Hemoglobin (test code = 785-6) 31.9 28-32 [facility] CypressMean Corpuscular Hemoglobin Concent 2019-02-14 12:34:00* Test Item Value Reference Range Interpretation Comments Mean Corpuscular Hemoglobin Concent (test code = 786-4) 33.6 31-35 [facility] CypressRed Cell Distribution Gqyzp7291-71-45 12:34:00* Test Item Value Reference Range Interpretation Comments Red Cell Distribution Width (test code = 33529-4) 13.0 11.7 -14.4 [facility] CypressPlatelet Pgsvj9678-01-33 12:34:00* Test Item Value Reference Range Interpretation Comments Platelet Count (test code = 777-3) 235 140-360 [facility] CypressNeutrophils (%) (Auto)2019-02-14 12:34:00 * Test Item Value Reference Range Interpretation Comments Neutrophils (%) (Auto) (test code = 40002-1) 71.7 38.7-80.0 [facility] CypressLymphocytes (%) (Auto)2019-02-14 12:34:00 * Test Item Value Reference Range Interpretation Comments Lymphocytes (%) (Auto) (test code = 736-9) 16.7 18.0-39.1 L [facility] CypressMonocytes (%) (Auto)2019-02-14 12:34:00* Test Item Value Reference Range Interpretation Comments Monocytes (%) (Auto) (test code = 5905-5) 8.7 4.4-11.3 [facility]ressEosinophils (%) (Auto)2019-02-14 12:34:00 * Test Item Value Reference Range Interpretation Comments Eosinophils (%) (Auto) (test code = 713-8) 1.8 0.0-6.0 [facility]ressBasophils (%) (Auto)2019-02-14 12:34:00* Test Item Value Reference Range Interpretation Comments Basophils (%) (Auto) (test code = 706-2) 0.7 0.0-1.0 [facility] CypressIM GRANULOCYTES %2019-02-14 12:34:00* Test Item Value Reference Range Interpretation Comments IM GRANULOCYTES % (test code = IM GRANULOCYTES %) 0.4 0.0- 1.0 [facility] CypressNeutrophils # (Auto)2019-02-14 12:34:00* Test Item Value Reference Range Interpretation Comments Neutrophils # (Auto) (test code = 751-8) 4.9 2.1-6.9 [facility] CypressLymphocytes # (Auto)2019-02-14 12:34:00* Test Item Value Reference Range Interpretation Comments Lymphocytes # (Auto) (test code = 18120-0) 1.1 1.0-3.2 [facility] CypressMonocytes # (Auto)2019-02-14 12:34:00* Test Item Value Reference Range Interpretation Comments Monocytes # (Auto) (test code = 742-7) 0.6 0.2-0.8 [facility]ressEosinophils # (Auto)2019-02-14 12:34:00* Test Item Value Reference Range Interpretation Comments Eosinophils # (Auto) (test code = 711-2) 0.1 0.0-0.4 [facility]ressBasophils # (Auto)2019-02-14 12:34:00* Test Item Value Reference Range Interpretation Comments Basophils # (Auto) (test code = 704-7) 0.1 0.0-0.1 [facility] CypressAbsolute Immature Granulocyte (auto 2019-02-14 12:34:00* Test Item Value Reference Range Interpretation Comments Absolute Immature Granulocyte (auto (emily t code = Absolute Immature Granulocyte (auto) 0.03 0-0.1 [facility]ressCHEST SINGLE (PORTABLE)2019-02-14 12:32:00 [facility] [address] [place] [address] Patient Name: DANN DAVIS JR MR #: [id number] : 1940 Age/Sex: 79/M Req #: [id number] Adm Physician: Ordered by: CLAUDE LASSITER MD Report #: [id number] Location: ER Room/Bed: Procedure: [id number] DX/CH EST SINGLE (PORTABLE) Exam Date: 02/14/19 Exam Time: 1225 REPORT STATUS: Signed EXAM INATION: CHEST SINGLE (PORTABLE) COMPARISON: Chest x-ray 02/13/2018 INDICATION: Weakness, fatigue, chest pain CHEST PAIN [id number] 1225 Y DISCUSSION: Frontal view of the chest obtained at 1223 hours. HE ART AND MEDIASTINUM: The heart is top normal in size possibly due to portable technique LINES: None. LUNGS: The lungs are well inflated and binh ar. No pneumonia or pulmonary edema. PLEURA: No pleural effusion or pneumo thorax. BONES AND SOFT TISSUES: No focal osseous lesion. The soft tissues are normal. IMPRESSION: No acute cardiopulmonary disease. Signed by : Dr. Nawaf Li MD on 02/14/2019 12:35 PM Dictated By: NAWAF LI MD [address] scribed By: CARMELITA on 02/14/19 1235 COPY TO: CLAUDE LASSITER MD HAND 3+ VIEWS WQLNT4374-26-03 12:05:00 [place] [address] Patient Name: DANN DAVIS JR MR #: [id number] : 1940 Age/Sex: 78/M Req #: [id number] Adm Physician: Ordered by: CLAUDE LASSITER MD Report #: [id number] Location: ER Room/Bed: Procedure: [id number] DX/PHAN ND 3+ VIEWS RIGHT Exam Date: 01/08/19 Exam Time: 115 0 REPORT STATUS: Signed Exam: Right hand 3 views History: Lacerations Comparison: None. Find ings: Bandage material overlies the right hand which limits evaluation. Suspec dariel laceration along the medial margin, adjacent to the fifth metacarpal and p roximal phalanx. No underlying acute osseous abnormality or radiopaque soft ti ssue foreign body. 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 Atherosclerotic vascular calcifications. Impressi on: 1. Laceration along the dorsal-medial hand as above. No radiopaque fore ign body per clinical query. Signed by: Dr. Wendy Delgado M.D. on 12/13 12:07 PM Dictated By: WENDY DELGADO MD 06 Transcribed By: CARMELITA on 01/08/191206 COPY TO: CLAUDE LASSITER MD Sodium Juvuc7164-81-79 06:14:00* Test Item Value Reference Range Interpretation Comments Sodium Level (test code = 2951-2) 139 136-145 [facility] CypressPotassium Vmrwg3270-99-52 06:14:00* Test Item Value Reference Range Interpretation Comments Potassium Level (test code = 2823-3) 4.8 3.5-5.1 [facility] CypressChloride Kmtqj4726-96-15 06:14:00* Test Item Value Reference Range Interpretation Comments Chloride Level (test code = 2075-0) 105 98-107 [facility] CypressCarbon Dioxide Jfbnk8729-92-27 06:14:00* Test Item Value Reference Range Interpretation Comments Carbon Dioxide Level (test code = 2028-9) 26 22-29 [facility] CypressAnion Dvj8682-18-53 06:14:00* Test Item Value Reference Range Interpretation Comments Anion Gap (test code = 97058-3) 12.8 8-16 [facility] CypressBlood Urea Laiqtqjj8992-10-77 06:14:00* Test Item Value Reference Range Interpretation Comments Blood Urea Nitrogen (test code = 3094-0) 9 7-26 [facility] CypressCreatinine2018-08-08 06:14:00* Test Item Value Reference Range Interpretation Comments Creatinine (test code = 2160-0) 0.84 0.72-1.25 [facility] CypressBUN/Creatinine Ozqch1214-07-05 06:14:00* Test Item Value Reference Range Interpretation Comments BUN/Creatinine Ratio (test code = 3097-3) 11 6-25 [facility] CypressEstimat Glomerular Filtration Rate 2018-02-18 06:14:00* Test Item Value Reference Range Interpretation Comments Estimat Glomerular Filtration Rate (test code = 11409-9) 60- >60 Ranges were taken from the National Kidney Disease Education Program and the [facility] Kid[facility] Foundation literature.Reference ranges:60 or greater: Nehktm69-95 ( for 3 consecutive months): Chronic kidney disease 15 or less: Kidney failureHCA [facility] Healthcare North CypressGlucose Fyaih8440-89-78 06:14:00* Test Item Value Reference Range Interpretation Comments Glucose Level (test code = QIM1306) 116 74-118 [facility] CypressCalcium Qtdwz5485-81-45 06:14:00* Test Item Value Reference Range Interpretation Comments Calcium Level (test code = 58446-3) 8.7 8.4-10.2 [facility] CypressWhite Blood Kdley1448-31-68 06:03:00* Test Item Value Reference Range Interpretation Comments White Blood Count (test code = 6690-2) 7.50 4.8-10.8 [facility] CypressRed Blood Qgptb1433-12-43 06:03:00* Test Item Value Reference Range Interpretation Comments Red Blood Count (test code = 789-8) 2.75 4.3-5.7 L [facility] CypressHemoglobin2018-08-08 06:03:00* Test Item Value Reference Range Interpretation Comments Hemoglobin (test code = 86740-6) 8.8 14.0-18.0 L [facility] CypressHematocrit2018-08-08 06:03:00* Test Item Value Reference Range Interpretation Comments Hematocrit (test code = 4544-3) 27.4 38.2-49.6 L [facility] CypressMean Corpuscular Biyxqy8100-84-12 06:03:00* Test Item Value Reference Range Interpretation Comments Mean Corpuscular Volume (test code = 787-2) 99.6 81-99 H [facility] CypressMean Corpuscular Zjkzwnmepi1435-04-94 06:03:00* Test Item Value Reference Range Interpretation Comments Mean Corpuscular Hemoglobin (test code = 785-6) 32.0 28-32 [facility] CypressMean Corpuscular Hemoglobin Concent 2018-02-18 06:03:00* Test Item Value Reference Range Interpretation Comments Mean Corpuscular Hemoglobin Concent (test code = 786-4) 32.1 31-35 [facility]ressRed Cell Distribution Lqdzk1983-89-67 06:03:00* Test Item Value Reference Range Interpretation Comments Red Cell Distribution Width (test code = 07280-0) 13.3 11.7 -14.4 [facility] CypressPlatelet Nfily9924-28-87 06:03:00* Test Item Value Reference Range Interpretation Comments Platelet Count (test code = 777-3) 188 140-360 [facility] CypressNeutrophils (%) (Auto)2018-02-18 06:03:00 * Test Item Value Reference Range Interpretation Comments Neutrophils (%) (Auto) (test code = 72181-1) 66.9 38.7-80.0 [facility] CypressLymphocytes (%) (Auto)2018-02-18 06:03:00 * Test Item Value Reference Range Interpretation Comments Lymphocytes (%) (Auto) (test code = 736-9) 16.7 18.0-39.1 L [facility] CypressMonocytes (%) (Auto)2018-02-18 06:03:00* Test Item Value Reference Range Interpretation Comments Monocytes (%) (Auto) (test code = 5905-5) 10.9 4.4-11.3 [facility]ressEosinophils (%) (Auto)2018-02-18 06:03:00 * Test Item Value Reference Range Interpretation Comments Eosinophils (%) (Auto) (test code = 713-8) 4.4 0.0-6.0 [facility] CypressBasophils (%) (Auto)2018-02-18 06:03:00* Test Item Value Reference Range Interpretation Comments Basophils (%) (Auto) (test code = 706-2) 0.4 0.0-1.0 [facility] CypressIM GRANULOCYTES %2018-02-18 06:03:00* Test Item Value Reference Range Interpretation Comments IM GRANULOCYTES % (test code = IM GRANULOCYTES %) 0.7 0.0- 1.0 [facility] CypressNeutrophils # (Auto)2018-02-18 06:03:00* Test Item Value Reference Range Interpretation Comments Neutrophils # (Auto) (test code = 751-8) 5.0 2.1-6.9 [facility] CypressLymphocytes # (Auto)2018-02-18 06:03:00* Test Item Value Reference Range Interpretation Comments Lymphocytes # (Auto) (test code = 97764-6) 1.3 1.0-3.2 [facility]ressMonocytes # (Auto)2018-02-18 06:03:00* Test Item Value Reference Range Interpretation Comments Monocytes # (Auto) (test code = 742-7) 0.8 0.2-0.8 [facility]ressEosinophils # (Auto)2018-02-18 06:03:00* Test Item Value Reference Range Interpretation Comments Eosinophils # (Auto) (test code = 711-2) 0.3 0.0-0.4 [facility]ressBasophils # (Auto)2018-02-18 06:03:00* Test Item Value Reference Range Interpretation Comments Basophils # (Auto) (test code = 704-7) 0.0 0.0-0.1 [facility] CypressAbsolute Immature Granulocyte (auto 2018-02-18 06:03:00* Test Item Value Reference Range Interpretation Comments Absolute Immature Granulocyte (auto (emily t code = Absolute Immature Granulocyte (auto) 0.05 0-0.1 [facility] CypressMagnesium Ubfsq8742-86-51 13:46:00* Test Item Value Reference Range Interpretation Comments Magnesium Level (test code = 46624-1) 1.7 1.3-2.1 [facility] CypressTotal Fzzdtmotc3381-72-32 15:28:00* Test Item Value Reference Range Interpretation Comments Total Bilirubin (test code = 1975-2) 0.5 0.2-1.2 [facility] CypressAspartate Amino Transf (AST/SGOT) 2018-02-13 15:28:00* Test Item Value Reference Range Interpretation Comments Aspartate Amino Transf (AST/SGOT) (test code = Aspartate Amino Transf (AST/SGOT)) 18 5-34 [facility] CypressAlanine Aminotransferase (ALT/SGPT) 2018-02-13 15:28:00* Test Item Value Reference Range Interpretation Comments Alanine Aminotransferase (ALT/SGPT) (test code = 1742-6) 13 0-55 [facility] CypressTotal Hsdprmt3285-61-31 15:28:00* Test Item Value Reference Range Interpretation Comments Total Protein (test code = 2885-2) 7.0 6.5-8.1 [facility] CypressAlbumin2018-08-03 15:28:00* Test Item Value Reference Range Interpretation Comments Albumin (test code = 1751-7) 3.4 3.5-5.0 L [facility] CypressGlobulin2018-08-03 15:28:00* Test Item Value Reference Range Interpretation Comments Globulin (test code = 84420-9) 3.6 2.3-3.5 H [facility] CypressAlbumin/Globulin Iuccu5302-26-41 15:28:00 * Test Item Value Reference Range Interpretation Comments Albumin/Globulin Ratio (test code = 1759-0) 0.9 0.8-2.0 [facility] CypressAlkaline Atvobkuykmo9924-78-44 15:28:00* Test Item Value Reference Range Interpretation Comments Alkaline Phosphatase (test code = 6768-6) 71 40-150 [facility] CypressCHEST 2 TFDXT3661-88-38 15:11:00 [facility] [address] [place] [address] Patient Name: DANN DAVIS JR MR #: [id number] : Age/Sex: 78/M Req #: [id number] Adm Physician: Ordered by: ISAI STROUD MD Report #: [id number] Location: OR Room/Bed: Procedure: [id number] DX/CHEST 2 VIEWS Exam Date: Exam Time: 1420 REPORT STATUS: Signed PROCEDURE: Frontal and lateral views of the chest. COMPARISON: None. INDICATIONS: PREOPERATIVE CHEST XRAY FOR PROSTATE SURGERY FINDIN GS: Lines/tubes: None. Lungs: The lungs are well inflated and clear. T here is no evidence of pneumonia or pulmonary edema. Pleura: There is no pleural effusion or pneumothorax. Heart and mediastinum: Mild aortic c alcifications. The heart and the mediastinum are normal. Bones: No acu te bony abnormality. IMPRESSION: No acute cardiopulmonary disease. Dictated by: Pineda Spain M.D. on 02/13/2018 at 15:11 Electronica lly approved by: Pineda Spain M.D. on 02/13/2018 at 15:11 Di ctated By: PINEDA SPAIN MD 1511 COPY TO: ISAI STROUD MD Prothrombin Bohl8395-83-34 15:04:00* Test Item Value Reference Range Interpretation Comments Prothrombin Time (test code = 5902-2) 14.4 11.9-14.5 [facility] CypressProthromb Time International Ratio 2018-02-13 15:04:00* Test Item Value Reference Range Interpretation Comments Prothromb Time International Ratio (test code = 6301-6) 1.21 Oral Anticoagulant Therapy INR Values:1. Low Intensity Therapy 1.5 - 2.02 . Moderate Intensity Therapy 2.0 - 3.03. High Intensity Therapy(1) 2.5 - 3. 54. High Intensity Therapy(2) 3.0 - 4.05. Panic Value INR > 5.0 [facility] CypressActivated Partial Thromboplast Time 2018-02-13 15:04:00* Test Item Value Reference Range Interpretation Comments Activated Partial Thromboplast Time (test code = 90516-9) 31.3 23.8-35.5 [facility]CHE[facility]2012-[facility] 12:22:001.9[facility] SyjbkjuVFZEVYDOE7350-78-87 12:22:51074Epoosrav SzixlrgTVTZMPVOK6835-00-72 12:22:000.8[facility] NbsiqjyUIMGVQPZM7747-09-96 12:22:99020Tobkrsvo Hurricane IEQYZVYFG6362-87-64 12:22:0022[facility] HcrytpbBWGLANMUA2144-41-39 12:22:007.6 [facility] AwvwpauDNDXFEMEH0795-61-98 12:22:0025[facility] HermannCHEMISTRY 2011-08-15 12:22:59432Hykuljml JncvacqXCYWWELLV8573-47-93 12:22:003.6[facility] ZrdebmgEGXTKSKCH5802-63-83 12:22:0015.6[facility] UodfvabHTBOWSGMRF5881-76-83 12:22:000.0[facility] MxtwonrRNFYYGKLDM6044-70-18 12:22:000.2[facility] PJAPKYMAUJ7723-18-25 12:22:006.4[facility] MkgzmblIPKABLTGJJ3852-75-16 12:22:00 11.6[facility] CsdlrrrFNFMUIKRMN3134-30-03 12:22:000.0[facility] HermannHEMATOLOGY 2011-08-15 12:22:001.0[facility] HhdydcsYPDDDAIYOA8684-24-07 12:22:001.0[facility] RyldzqlKNBZIEZOYT1194-76-09 12:22:000.5[facility] KyvretfQRNFPFQXQW6895-35-31 12:22:0011.9[facility] YvpsejsSHPLYGQEJR1753-37-87 12:22:0075.8[facility] CQZIWOBYKU2840-90-99 12:22:00* Test Item Value Reference Range Interpretation Comments PT (test code = PT) 18.1 s 12.0-14.7 H [facility] LizogwcWWWLQENFRR8683-26-97 12:22:001.51[facility] HermannHEMATOLOGY 2011-08-15 12:22:007.8[facility] EqpmsjyUKTKKTHGXI8448-37-40 12:22:11240Dbnnbtks HxapzzuMRVTODJHTK6902-12-67 12:22:0015.3[facility] QhqslknLFTUYIOXNQ3028-05-01 12:22:00* Test Item Value Reference Range Interpretation Comments MCH (test code = MCH) 32.7 pg 27.0-31.0 H [facility] UlshsnqIIFWPZVYAY0607-93-74 12:22:0096.2[facility] HermannHEMATOLOGY 2011-08-15 12:22:0034.0[facility] GseiebtWEONAGSAQR4839-85-04 12:22:0034.9[facility] VlzolitXXUQIPXJRD7556-05-66 12:22:008.5[facility] WubaxctLIUTKEQBUO7041-88-75 12:22:0011.9[facility] QhqdasbEUEKEQGSGV4804-72-44 12:22:003.63[facility] FPLEGJGPF9043-82-63 10:12:0025[facility] WwhgwvcIGPHCXUMP4009-19-97 10:12:0015.0 [facility] ZumnrfuXCHWYZJWU8231-32-65 10:12:007.3[facility] HermannCHEMISTRY 2011-08-14 10:12:000.9[facility] JujheroCWNGPAPQW3824-88-13 10:12:25572Ilfizuga IqgmryeKJTDFWVIJ1100-86-55 10:12:0026[facility] WpfxhbyAPZKDHPEV3884-14-09 10:12:22789Jcudgzvf KdqsdowUZJAVCJCR5873-94-57 10:12:28676Flohpikd [facility] DDTNIVXDG6385-99-10 10:12:004.0[facility] YzxqxphNGJEZMTEM2063-68-08 10:12:001.6 [facility] CdsbmmyDDTKGDETRP0125-93-65 10:12:21761Bjkklwix HermannHEMATOLOGY 2011-08-14 10:12:007.4[facility] EhwosbiVWNLMUIXOK5750-42-77 10:12:0015.0[facility] KstgsjyGDCPVFWWDC0598-27-99 10:12:00* Test Item Value Reference Range Interpretation Comments MCH (test code = MCH) 33.1 pg 27.0-31.0 H [facility] XhtsrczGYKXEURSTH5434-57-22 10:12:0034.9[facility] HermannHEMATOLOGY 2011-08-14 10:12:0094.7[facility] VhvxbtwGRUPXUGSGL2000-56-30 10:12:0034.4[facility] UiigqlbKHRDUMLBRA0467-13-50 10:12:003.63[facility] DprwbwcZAMNGLXMKF7288-06-87 10:12:0012.0[facility] BxgcohcXFSUTOONVJ2678-74-94 10:12:0010.0[facility] ILCMBEXSNW2736-71-89 10:12:001.46[facility] VzyxiloBBKWOINIGF8737-22-12 10:12:00* Test Item Value Reference Range Interpretation Comments PT (test code = PT) 17.7 s 12.0-14.7 H [facility] LviklxcIMJDLVHGZC2905-58-19 10:12:000.0[facility] HermannHEMATOLOGY 2011-08-14 10:12:000.0[facility] QfzwqhvBDMCABIIJU9385-28-68 10:12:001.2[facility] AkaobfyAGLBLTIIJF7887-29-68 10:12:007.7[facility] PaettbzKXJXHULIWZ7763-39-02 10:12:001.1[facility] NbmnbwsJVKKNGOZMR7430-73-85 10:12:000.3[facility] SLSFCESGSM5993-35-34 10:12:0011.8[facility] BjwmmguKOXFOVLKNR4296-94-18 10:12:00 11.0[facility] CdjynihGBACIHAZOF4438-57-16 10:12:0076.9[facility] HermannHEMATOLOGY 2011-08-14 10:12:000.0[facility] RkmaaykGLDWXNIZH5173-06-97 12:48:0013.5[facility] MypogozREGZNZXBV3620-82-60 12:48:0027[facility] SibahwuGFXHKOASC5899-08-13 12:48:007.9[facility] JrkokggFZRFPKJJX4029-19-79 12:48:56988Nwmcoxol [facility] OBNVHTVBF9066-52-39 12:48:48040Zgujrhcf NsgxohqITXGICENM1279-57-22 12:48:000.9 [facility] GxzackcYZSQVLMKX8521-77-57 12:48:003.5[facility] HermannCHEMISTRY 2011-08-13 12:48:0017[facility] RiywmqpLUHUGRHSO3178-28-26 12:48:43070Iwgpyvpy EecibhwUAYTFXVEYT6206-58-99 12:48:000.0[facility] UnjtplnFZOOPONLPN4555-67-02 12:48:000.1[facility] CxeazubBRRSHPDEAS9873-21-10 12:48:0059.4[facility] WLYDMWWQPY7492-65-22 12:48:0025.9[facility] BzsmsadENDFYGOVZP9615-38-05 12:48:00 11.4[facility] ZkdwqnkRDKGMNQIEP2538-62-43 12:48:002.9[facility] HermannHEMATOLOGY 2011-08-13 12:48:000.4[facility] EmaogydNOAHNSHWHI0453-94-72 12:48:003.0[facility] JcwsnulAYFEFYNSKA5554-36-87 12:48:000.6[facility] TnywlqrXXDYOCHDNI3527-82-40 12:48:001.3[facility] KelivezYFLAQRFMBV4718-66-33 12:48:0033.8[facility] TFDQMOHJKR8382-44-58 12:48:005.1[facility] BquswbwCDXQWTHSAM6762-98-69 12:48:00 41.1[facility] ApcekmgLEAKMZQDDN8128-62-91 12:48:0013.9[facility] HermannHEMATOLOGY 2011-08-13 12:48:0095.3[facility] QssihakEUNDHSJUTO6288-48-39 12:48:00* Test Item Value Reference Range Interpretation Comments MCH (test code = MCH) 32.2 pg 27.0-31.0 H [facility] MyfwiybVFFAWYXMYP0836-43-13 12:48:0014.7[facility] HermannHEMATOLOGY 2011-08-13 12:48:98358Ogxppktr BbahvteLRGOMFVUKY2172-25-27 12:48:007.7[facility] TbhzehcCPVNCEPXDK7531-55-85 12:48:004.31[facility] ZciwvgjNSYPIFJELH6296-17-69 12:48:00* Test Item Value Reference Range Interpretation Comments PT (test code = PT) 16.9 s 12.0-14.7 H [facility] GbhapdeGDJAULJRTW1696-79-13 12:48:001.38[facility] HermannHEMATOLOGY 2011-08-13 12:48:00* Test Item Value Reference Range Interpretation Comments PTT (test code = PTT) 33.2 s 22.9-35.8 N [facility] OrbbamaNEBIXHMOIH3856-40-23 12:48:00Negative mg/dL *NA*(08/13/2011 06:48:00) [facility] TdawlfiEMKXPYGFTG0854-11-98 12:48:00Negative *NA*(08/13/2011 06:48:00) [facility]KKTZEXR6755-74-43 12:48:00Negative (08/13/2011 06:48:00) [facility] JikzbwaGDGRCOASLI1943-41-17 12:48:00Negative (08/13/2011 06:48:00) [facility] QrteaszILXVOIVGAE6684-31-51 12:48:00Negative mg/dL *NA*(08/13/2011 06:48:00) [facility] PrwsmwdKWCZCTHYGE5039-95-12 12:48:003 [facility] JalqjxaSEEORLNRST8208-50-58 12:48:00Few /LPF *NA*(08/13/2011 06:48:00) [facility] RlxtkttBNQUMHFBCG0227-70-33 12:48:00Moderate *ABN*(08/13/2011 06:48:00) [facility] HxvkbhtNRXCJSGBGX5985-31-75 12:48:0031[facility]annURINALYSIS 2011-08-13 12:48:00Clear (08/13/2011 06:48:00) [facility] HermannURINALYSIS 2011-08-13 12:48:001.014[facility] NazazbhSVBEBQXHLM9169-07-27 12:48:007.0[facility] QqssizmCJWJGAIZFS9476-81-50 12:48:0030 mg/dL *ABN*(08/13/2011 06:48:00) [facility]803[facility] 12:48:00Yellow *NA*(08/13/2011 06:48:00) [facility] RWJNRWB5443-90-82 12:15:00Negative (08/13/2011 06:15:00) [facility]
[2020-05-22 05:33] LABS: CREATINE KINASE MB 0.9 ng/mL (0-5.0)
--- NOTE | 2020-05-22 05:35 | Emergency Department Note ---
History of Present Illnes History of Present Illness Chief Complaint: COVID PUI History of Present Illness This is a 80 year old male t SOB that woke him up from sleep at 0030 midnight. Pt states he had a Hx of AFib, CHF, HTN. PT REPORTS HE WAS JUST RECENTLY ON A H[employer] MONIT[employer] LAST WEEK Pt appears no respiratory distress upon arrival in with 100% Sats on RA. . Historian: Patient Arrival Mode: Car Onset (how long ago): hour(s) (4.5) Location: CHEST Quality: SOB Radiation: Reports non-radiation Severity: mild Onset quality: sudden Duration (how long): hour(s) (4.5) Timing of current episode: constant Progression: partially resolved Chronicity: recurrent Context: Denies recent illness, Denies recent surgery Relieving factors: none Exacerbating factors: other (LAYING FLAT) Associated symptoms: Reports denies other symptoms Treatments prior to arrival: none Past Medical/Family History Physician Review I have reviewed the patient's past medical and family history. Any updates have been documented here. Past Medical History Recent Fever: No Clinical Suspicion of Infectio: No New/Unexplained Change in Ment: No Past Medical History: Hypertension, CHF, A-Fib Other Medical History: BPH Past Surgical History: CABG Other Surgery: TURP, Heart stent (x2), Cardiac ablation, Tonsillectomy Social History Smoking Cessation: Never Smoker Alcohol Use: None Any Illegal Drug Use: No Physically hurt or threatened: No Other Last Tetanus: UTD Any Pre-Existing Lines (PICC,: No Review of Systems Review of Systems Constitutional: Reports no symptoms EENTM: Reports no symptoms Cardiovascular: Reports no symptoms Respiratory: Reports as per HPI Gastrointestinal: Reports no symptoms Genitourinary: Reports no symptoms Musculoskeletal: Reports no symptoms Integumentary: Reports no symptoms Neurological: Reports no symptoms Psychological: Reports no symptoms Endocrine: Reports no symptoms Hematological/Lymphatic: Reports no symptoms Review of other systems: All other systems negative Physical Exam Related Data Allergies: Coded Allergies: Penicillins (Verified Allergy, Intermediate, ITCHING, 01/08/19) Triage Vital Signs Vital Signs Date Time Temp Pulse Resp B/P (MAP) Pulse Ox O2 Delivery O2 Flow Rate FiO2 05/22/20 05:02 97.7 102 18 174/124 100 Room Air Vital signs reviewed: Yes Physical Exam CONSTITUTIONAL Constitutional: Present well-developed, Present well-nourished; Absent distressed HENT HENT: Present normocephalic, Present atraumatic, Present oropharynx clear/moist, Present nose normal HENT L/R: Present left ext ear normal, Present right ext ear normal EYES Eyes: Reports PERRL, Reports conjunctivae normal NECK Neck: Present ROM normal PULMONARY Pulmonary: Present effort normal, Present breath sounds normal CARDIOVASCULAR Cardiovascular: Present irregular rhythm, Present heart sounds normal, Present capillary refill normal, Present normal rate GASTROINTESTINAL Abdominal: Present soft, Present nontender, Present bowel sounds normal GENITOURINARY Genitourinary: Present exam deferred SKIN Skin: Present warm, Present dry MUSCULOSKELETAL Musculoskeletal: Present ROM normal NEUROLOGICAL Neurological: Present alert, Present oriented x 3, Present no gross motor or sensory deficits PSYCHOLOGICAL Psychological: Present mood/affect normal, Present judgement normal Results Laboratory Result Diagram: 05/22/20 0454 Laboratory Laboratory Tests Test 05/22/20 04:54 White Blood Count 6.62 x10e3/uL (4.8-10.8) Red Blood Count 4.04 x10e6/uL (4.3-5.7) Hemoglobin 11.0 g/dL (14.0-18.0) Hematocrit 36.0 % (38.2-49.6) Mean Corpuscular Volume 89.1 fL (81-99) Mean Corpuscular Hemoglobin 27.2 pg (28-32) Mean Corpuscular Hemoglobin Concent 30.6 g/dL (31-35) Red Cell Distribution Width 15.7 % (11.7-14.4) Platelet Count 199 x10e3/uL (140-360) Neutrophils (%) (Auto) 65.6 % (38.7-80.0) Lymphocytes (%) (Auto) 20.7 % (18.0-39.1) Monocytes (%) (Auto) 11.2 % (4.4-11.3) Eosinophils (%) (Auto) 1.4 % (0.0-6.0) Basophils (%) (Auto) 0.6 % (0.0-1.0) Neutrophils # (Auto) 4.4 (2.1-6.9) Lymphocytes # (Auto) 1.4 (1.0-3.2) Monocytes # (Auto) 0.7 (0.2-0.8) Eosinophils # (Auto) 0.1 (0.0-0.4) Basophils # (Auto) 0.0 (0.0-0.1) Absolute Immature Granulocyte (auto 0.03 x10e3/uL (0-0.1) Sodium Level 141 mmol/L (136-145) Potassium Level 3.9 mmol/L (3.5-5.1) Chloride Level 105 mmol/L (98-107) Carbon Dioxide Level 26 mmol/L (22-29) Anion Gap 13.9 mmol/L (8-16) Blood Urea Nitrogen 23 mg/dL (7-26) Creatinine 1.22 mg/dL (0.72-1.25) Estimat Glomerular Filtration Rate 57 ML/MIN (60-) BUN/Creatinine Ratio 19 (6-25) Glucose Level 136 mg/dL (74-118) Calcium Level 8.1 mg/dL (8.4-10.2) Total Bilirubin 0.7 mg/dL (0.2-1.2) Aspartate Amino Transf (AST/SGOT) 74 IU/L (5-34) Alanine Aminotransferase (ALT/SGPT) 60 IU/L (0-55) Alkaline Phosphatase 73 IU/L (40-150) Creatine Kinase 77 IU/L (30-200) Creatine Kinase MB 0.90 ng/mL (0-5.0) Troponin I 0.009 ng/mL (0-0.300) Total Protein 6.3 g/dL (6.5-8.1) Albumin 3.3 g/dL (3.5-5.0) Globulin 3.0 g/dL (2.3-3.5) Albumin/Globulin Ratio 1.1 (0.8-2.0) Laboratory Tests Test 05/22/20 04:54 White Blood Count 6.62 x10e3/uL (4.8-10.8) Red Blood Count 4.04 x10e6/uL (4.3-5.7) Hemoglobin 11.0 g/dL (14.0-18.0) Hematocrit 36.0 % (38.2-49.6) Mean Corpuscular Volume 89.1 fL (81-99) Mean Corpuscular Hemoglobin 27.2 pg (28-32) Mean Corpuscular Hemoglobin Concent 30.6 g/dL (31-35) Red Cell Distribution Width 15.7 % (11.7-14.4) Platelet Count 199 x10e3/uL (140-360) Neutrophils (%) (Auto) 65.6 % (38.7-80.0) Lymphocytes (%) (Auto) 20.7 % (18.0-39.1) Monocytes (%) (Auto) 11.2 % (4.4-11.3) Eosinophils (%) (Auto) 1.4 % (0.0-6.0) Basophils (%) (Auto) 0.6 % (0.0-1.0) Neutrophils # (Auto) 4.4 (2.1-6.9) Lymphocytes # (Auto) 1.4 (1.0-3.2) Monocytes # (Auto) 0.7 (0.2-0.8) Eosinophils # (Auto) 0.1 (0.0-0.4) Basophils # (Auto) 0.0 (0.0-0.1) Absolute Immature Granulocyte (auto 0.03 x10e3/uL (0-0.1) Lab results reviewed: Yes Imaging Imaging results reviewed: Yes Impressions Procedure: [id number] DX/CHEST SINGLE (PORTABLE) Exam Date: 05/22/20 Exam Time: 524 REPORT STATUS: Signed EXAMINATION: CHEST SINGLE (PORTABLE) INDICATION: ^sob ^[id number] ^0525 ^Y COMPARISON: 02/09/2020 FINDINGS: AP view TUBES and LINES: None. LUNGS: Lungs are well inflated. Central vascular congestion and mild interstitial edema. PLEURA: No significant pleural effusion or pneumothorax. HEART AND MEDIASTINUM: The cardiac silhouette is enlarged. BONES AND SOFT TISSUES: No acute osseous lesion. Soft tissues are unremarkable. UPPER ABDOMEN: No free air under the diaphragm. IMPRESSION: Enlarged cardiac silhouette, central vascular congestion, and mild interstitial edema. Signed by: Dr. Isiah Scruggs MD on 05/22/2020 5:49 AM Dictated By: ISIAH SCRUGGS MD 8 Transcribed By: CARMELITA on 05/22/20548 COPY TO: CHAUNCEY TAVERA MD~ Procedures 12 Lead ECG Interpretation ECG Interpretation : ECG: ECG 1 Trim Die Maker: Interpreted by ED physician Date: May 22, 2020 Time: 04:55 Rhythm: atrial fibrillation Rate: normal BPM: 94 QRS axis: normal ST segments normal: Yes T waves normal: No T wave inversion: V5, V6 T waves flattening: V4 Q waves: V1, V2 Assessment & Plan Medical Decision Making MDM PT WITH H/O AFIB, CAD, AND CHF WITH SOB SINCE MIDNIGHT CBC, CMP, EKG, CARDIAC ENZYMES, BNP, CXR ORDERED TO EVAL FOR SEVERE ANEMIA, MYOCARDIAL INFARCTION, PNEUMONIA, PULMONARY EDEMA, ELECTROLYTE ABNORMALITY PT WITH MILD INTERSTITIAL EDEMA, OXYGEN SATURATION IS 100% ROOM AIR I SPOKE WITH DR SALAZAR COVERING FOR DR ELDER. GIVE PT LASIX 20 MG IV AND HAVE PT FOLLOW UP IN OFFICE TODAY AT 2 PM Assessment & Plan Final Impression: (1) CHF (congestive heart failure) (2) Chronic a-fib Depart Disposition: HOME, SELF-CARE Last Vital Signs Date Time Temp Pulse Resp B/P (MAP) Pulse Ox O2 Delivery O2 Flow Rate FiO2 05/22/20 05:02 97.7 102 18 174/124 100 Room Air Home Meds Reported Medications Acetaminophen (ACETAMINOPHEN EXTRA STRENGTH) 500 Mg Tablet, 1 TAB PO Q6H PRN for pain THERAPEUTICALLY SUBSTITUTED WITH ACETAMINOPHEN 325MG 02/10/20 Amlodipine Besylate (AMLODIPINE BESYLATE) 10 Mg Tablet, 10 MG PO DAILY, #30 TAB 02/10/20 Hydrochlorothiazide (HYDROCHLOROTHIAZIDE) 25 Mg Tablet, 12.5 MG PO DAILY, #30 TAB 02/10/20 Rivaroxaban (XARELTO) 20 Mg Tablet, 20 MG PO HS 01/30/16 Amiodarone Hcl (AMIODARONE HCL) 200 Mg Tablet, 100 MG PO DAILY 12/11/15 Amlodipine Besylate (AMLODIPINE BESYLATE) 10 Mg Tablet, 10 MG PO DAILY, #30 TAB 12/09/15 Losartan Potassium (LOSARTAN POTASSIUM) 100 Mg Tablet, 100 MG PO DAILY, TAB 12/09/15 Finasteride (FINASTERIDE) 5 Mg Tablet, 5 MG PO DAILY, #P 06/08/12 Metoprolol Tartrate (METOPROLOL TARTRATE) 100 Mg Tablet, 100 MG PO BID 06/08/12 Esomeprazole Magnesium (NEXIUM) 40 Mg Capsule.dr, 40 MG PO DAILY 06/08/12 Oxybutynin Chloride (Ditropan 5MG Tab) 5 Mg Tab, 5 MG PO TID 11/29/10 CHAUNCEY TAVERA MD May 22, 2020 05:35
--- NOTE | 2020-05-22 05:52 | Diagnostic Imaging Report ---
EXAMINATION: CHEST SINGLE (PORTABLE) INDICATION: ^sob ^[id number] ^0525 ^Y COMPARISON: 02/09/2020 FINDINGS: AP view TUBES and LINES: None. LUNGS: Lungs are well inflated. Central vascular congestion and mild interstitial edema. PLEURA: No significant pleural effusion or pneumothorax. HEART AND MEDIASTINUM: The cardiac silhouette is enlarged. BONES AND SOFT TISSUES: No acute osseous lesion. Soft tissues are unremarkable. UPPER ABDOMEN: No free air under the diaphragm. IMPRESSION: Enlarged cardiac silhouette, central vascular congestion, and mild interstitial edema. Signed by: Dr. Isiah Parry MD on 05/22/2020 5:49 AM
[2020-05-22] MEDS ORDERED: FUROSEMIDE INJ 10 MG/ML 2 ML VIAL IV ONE (06:00)
[2020-05-22 06:23] VITALS: BP 165/100
== END 2020-05-22 06:27 | disposition home or self-care (01) ==
LOC: ER 04:57
DX: I50.9 Heart failure, unspecified (principal); I48.20 Chronic atrial fibrillation, unspecified; R06.02 Shortness of breath; Z95.1 Presence of aortocoronary bypass graft; I10 Essential (primary) hypertension; Z95.5 Presence of coronary angioplasty implant and graft
CPT/HCPCS: 36415; 71045; 80053; 82550; 82553; 83880; 84484; 85025; 93005; 99284; J1940

== ENCOUNTER → 2021-10-16 | Day surgery (SDC) | payer OTHER ==
[2021-10-12 10:38] LABS: BASOPHILS % 0.5 % (0.0-1.0); EOSINOPHILS # (AUTO) 0.1 (0.0-0.4); EOSINOPHILS % 2.3 % (0.0-6.0); HEMATOCRIT 39.5 % (38.2-49.6); HEMOGLOBIN 12.7 g/dL (14.0-18.0); LYMPHOCYTES # (AUTO) 1.2 (1.0-3.2); LYMPHOCYTES % 20.2 % (18.0-39.1); MEAN CORPUSCULAR HEMOGLOBIN 32.1 pg (28-32); MEAN CORPUSCULAR HGB CONC 32.2 g/dL (31-35); MEAN CORPUSCULAR VOLUME 99.7 fL (81-99); MONOCYTES # (AUTO) 0.7 (0.2-0.8); MONOCYTES % 11.2 % (4.4-11.3); NEUTROPHILS # (AUTO) 3.9 (2.1-6.9); NEUTROPHILS % 65.5 % (38.7-80.0); PLATELET COUNT 138 x10e3/uL (140-360); RED BLOOD COUNT 3.96 x10e6/uL (4.3-5.7); RED CELL DISTRIBUTION WIDTH 14.4 % (11.7-14.4)
[2021-10-12 10:55] LABS: ALBUMIN 3.4 g/dL (3.5-5.0); ALBUMIN/GLOBULIN RATIO 0.9 (0.8-2.0); ANION GAP 10.2 mmol/L (8-16); CALCIUM 8.1 mg/dL (8.4-10.2); CREATININE, SERUM 1.07 mg/dL (0.72-1.25); POTASSIUM 4.2 mmol/L (3.5-5.1)
[2021-10-16] VITALS (14 sets, daily range): BP systolic 107–133; BP diastolic 81–107
[~2021-10-16] VITALS: Ht 175.3 cm; Wt 90.7 kg
[~2021-10-16] MED LIST changes: +BENZOCAINE 20% SPR 60 ML CAN ONE; +DILTIAZEM 24HR180 MG PO; +FENTANYL CITRATE/PF 100MCG/2 ML INJ ONE; +FUROSEMIDE40 MG PO; +MIDAZOLAM HCL 2 MG/2 ML VIAL ONE; +SODIUM CHLORIDE 0.9% 1000ML 1,000 ML ONE
== END | disposition home or self-care (01) ==
LOC: CATH LAB 10:22
PROVIDERS: ATTEND Internal Medicine Interventional Cardiology
DX: I48.20 Chronic atrial fibrillation, unspecified (principal); I35.8 Other nonrheumatic aortic valve disorders; I07.1 Rheumatic tricuspid insufficiency; Z95.818 Presence of other cardiac implants and grafts; I10 Essential (primary) hypertension; R07.9 Chest pain, unspecified; Z01.812 Encounter for preprocedural laboratory examination; Z20.822 Contact with and (suspected) exposure to COVID-19; Z79.899 Other long term (current) drug therapy; Z79.02 Long term (current) use of antithrombotics/antiplatelets; Z82.49 Family history of ischemic heart disease and other diseases of the circulatory system
CPT/HCPCS: 36415; 80053; 83880; 85025; 93307; 93312; 93325; J2250; J3010; J7030; U0002

== ENCOUNTER → 2022-07-29 | Outpatient (CLI) | payer OTHER ==
[~2022-07-29] MED LIST changes: -BENZOCAINE 20% SPR 60 ML CAN ONE; -FENTANYL CITRATE/PF 100MCG/2 ML INJ ONE; -MIDAZOLAM HCL 2 MG/2 ML VIAL ONE; -SODIUM CHLORIDE 0.9% 1000ML 1,000 ML ONE
== END ==
LOC: RAD 13:45
PROVIDERS: ATTEND Internal Medicine
DX: I50.32 Chronic diastolic (congestive) heart failure (principal)
CPT/HCPCS: 71046

== ENCOUNTER → 2024-12-27 | Outpatient (REF) | payer OTHER ==
[~2024-12-27] MED LIST changes: +ASPIRIN81 MG PO; +NIFEDIPINE ER30 M1 PO
== END ==
LOC: RAD 13:19
PROVIDERS: ATTEND Internal Medicine
DX: R07.89 Other chest pain (principal); S82.202 Unspecified fracture of shaft of left tibia
CPT/HCPCS: 71046